=== PATIENT | male | born 1930 | race Caucasian/White ===

== ENCOUNTER 2016-04-18 12:52 | Inpatient (IN) ==
--- NOTE | 2016-04-18 13:11 | Emergency Department Note ---
Disposition Clinical Impression: Weakness, WEINSTEIN (dyspnea on exertion), REJI (acute kidney injury), Congestive heart failure, Frail elderly, COPD (chronic obstructive pulmonary disease), HLD (hyperlipidemia), HTN (hypertension), CAD (coronary artery disease), Hypokalemia , Atrial fibrillation Disposition: Admitted As Inpatient Referrals: Amari Alcantara DO [Primary Care Provider] - Forms: ED Satisfaction Letter General Adult HPI - General Chief complaint: ED Shortness of Breath/Dyspnea Stated complaint: PIPER Time Seen by Provider: 04/18/16 13:09 Source: patient, family Limitations: no limitations - History of Present Illness HPI Narrative: 85-year-old male with multiple medical problems including CHF COPD CAD and colon cancer reports the emergency department complaining of weakness. He describes dyspnea on exertion. He usually wears oxygen at home but only at night 2 L. The patient denies any coughing of blood leg swelling or pain or syncope. There has been no unilateral arm or leg weakness or numbness no history of headache neck stiffness rash or fever. No coughing in general. The patient describes nausea. He has chronic diarrhea status post colon surgery. No bloody stool. No vomiting. There is no history of abdominal pain. No trauma or falls. No confusion. The patient has been taking new diuretics, he reports significant weight loss since taking the diuretic medication. He saw his physician about 10 days ago he reports changes diuretic medication. He wonders if the medication changes have caused his symptomatology there is no history of rash. The patient states he had a corner and bypass about 2 years ago. He is not on blood thinning medication apart from aspirin. There is no history of acute bleeding. The patient's family member feels that he is lost too much weight and that he might be dehydrated. There is concern that the patient has been woozy when he walks and he might fall down. Onset (ago): day(s) Pain Scale: 0 - Related Data Home Medications Medication Instructions Recorded Confirmed Aspirin Enteric Coated [Aspirin EC] 81 mg PO DAILY 06/27/15 06/27/15 Atorvastatin Calcium [Lipitor] 20 mg PO DAILY 06/27/15 06/27/15 Furosemide [Lasix] 40 mg PO BID 06/27/15 06/27/15 Isosorbide MONOnitrate (24 HR) 30 mg PO DAILY 06/27/15 06/27/15 [Imdur] Levothyroxine [Synthroid] 50 mcg PO DAILY 06/27/15 06/27/15 Metoprolol XL (24 HR) Succ [Toprol 100 mg PO DAILY 06/27/15 06/27/15 XL] Mometasone/Formoterol [Dulera 200 2 puff IH BID 06/27/15 06/27/15 Mcg/5 Mcg Inhaler] Montelukast [Singulair] 10 mg PO DAILY 06/27/15 06/27/15 Ramipril [Altace] 5 mg PO DAILY 06/27/15 06/27/15 Ranolazine [Ranexa] 500 mg PO BID 06/27/15 06/27/15 Temazepam [Restoril] 30 mg PO HS 06/27/15 06/27/15 Venlafaxine HCl [Venlafaxine HCl 75 mg PO DAILY 06/27/15 06/27/15 ER] Previous Rx's Medication Instructions Recorded Albuterol Sulfate [Albuterol 1 puff IH Q4HR PRN #1 unit 03/06/16 Inhaler] PredniSONE 40 mg PO DAILY #10 tablet 03/06/16 Allergies Allergy/AdvReac Type Severity Reaction Status Date / Time rivaroxaban [From Xarelto] Allergy See Verified 04/18/16 13:02 Comments All systems ED: reviewed and negative except as stated. Past Medical History - Past Medical History Medical history: Reports: cancer, CHF, COPD, coronary artery disease, hyperlipidemia, hypertension, renal disease, valvular heart disease, other Psychiatric history: Reports: no psych history - Social History Smoking Status: Never smoker Smokeless Tobacco Status: No Alcohol use: Reports: none Drug use: Reports: none Physical Exam - General Limitations: no limitations General appearance: alert, in no apparent distress - Head Head exam: atraumatic, normocephalic, normal inspection - Eye Eye exam: Present: normal appearance, PERRL, EOMI - ENT ENT exam: normal exam, normal oropharynx, mucous membranes moist, TM's normal bilaterally, normal external ear exam - Neck Neck exam: Present: normal inspection, full ROM, trachea midline - Chest Chest inspection: Present: symmetric chest wall rise. Absent: tenderness - Respiratory Respiratory exam: Present: normal lung sounds bilaterally. Absent: respiratory distress - Cardiovascular Cardiovascular exam: Present: bradycardia, irregular rhythm - Abdominal Exam Abdominal exam: Present: soft, Non-Tender, normal bowel sounds. Absent: tenderness, distention, guarding, rebound, rigidity, pulsatile mass - Extremities Exam Extremities exam: Present: normal inspection, full ROM, normal capillary refill. Absent: tenderness, pedal edema, joint swelling, calf tenderness - Expanded Lower Extremity Exam Lower leg exam: Absent: Homans' sign Neurovascular/Tendon exam: Present: extremity cold to touch. Absent: motor deficit, sensory deficit, tendon deficit, pallor - Back Exam Back exam: Present: normal inspection, full ROM. Absent: tenderness, CVA tenderness (R), CVA tenderness (L), vertebral tenderness - Neurological Exam Neurological exam: Present: alert, oriented X3, CN II-XII intact. Absent: motor sensory deficit - Psychiatric Psychiatric exam: Present: normal affect, normal mood - Skin Skin exam: Present: warm, dry, intact, normal color. Absent: rash, cyanosis, diaphoresis, erythema, pallor, mottled Course Vital Signs Temperature 97.4 F L 04/18/16 13:02 Pulse Rate 88 04/18/16 13:02 Respiratory Rate 18 04/18/16 13:02 Blood Pressure 95/61 04/18/16 13:02 O2 Sat by Pulse Oximetry 100 04/18/16 13:02 Temperature 97.4 F L 04/18/16 13:02 Pulse Rate 61 04/18/16 15:30 Respiratory Rate 18 04/18/16 15:30 Blood Pressure 124/66 04/18/16 15:30 O2 Sat by Pulse Oximetry 98 04/18/16 15:30 Oxygen Delivery Oxygen Delivery Room Air Medical Decision Making - [place] Narrative Medical decision making narrative: Patient appears to have acute kidney injury based on a significantly elevated BUN and creatinine. He is elderly and has multiple comorbidities. He is having trouble walking and becoming dyspneic on exertion. The patient has not fallen, his relative reports that he urinates copious amounts every night and feels that the patient has lost too much weight he describes a 30 pound weight loss in one month. Given the patient has acute kidney injury, is symptomatic, and his multiple comorbidities, I thought it appropriate to admit the patient to the hospital. I discussed the case with the hospitalist on-call who has accepted the patient to their care. - Lab Data Lab results reviewed: Yes I reviewed the patient's lab results. Result diagrams: 04/18/16 13:45 04/18/16 13:51 Lab Results 04/18/16 04/18/16 04/18/16 Range/Units 13:45 13:45 13:45 WBC 11.2 H (4.3-11.1) K/mcL RBC 4.69 (4.19-5.50) M/mcL Hgb 14.2 (12.9-16.9) g/dL Hct 42.8 (37.5-50.1) % MCV 91.3 (83.0-100.0) fL MCH 30.3 (28.0-33.3) pg MCHC 33.2 (31.6-35.5) g/dL RDW 15.2 H (11.5-14.5) % Plt Count 275 (140-400) K/mcL MPV 9.4 (9.4-12.4) fL Immature Gran % 1.1 (0-4) % Seg Neutrophils % 67.1 % Lymphocytes % 18.9 % Monocytes % 10.9 % Eosinophils % 1.6 % Basophils % 0.4 % Neutrophils # 7.5 (1.6-8.9) K/mcL Lymphocytes # 2.1 (0.6-4.6) K/mcL Monocytes # 1.2 (0.0-1.3) K/mcL Eosinophils # 0.2 (0.0-0.6) K/mcL Basophils # 0.0 (0.0-0.2) K/mcL PT 11.7 (9.4-12.1) Seconds INR 1.1 APTT 32.6 (26.0-36.0) Seconds Sodium (136-145) mEq/L Potassium (3.5-4.5) mEq/L Chloride (98-109) mEq/L Carbon Dioxide (19-29) mEq/L BUN (8-26) mg/dL Creatinine (0.72-1.25) mg/dL Est GFR ( Amer) (> 60) Est GFR (Non-Af Amer) (> 60) BUN/Creatinine Ratio (6-26) Glucose (70-99) mg/dL Calculated Osmolality (280-300) Lactic Acid 1.2 (0.5-2.2) mmol/L Calcium (8.6-10.8) mg/dL Total Bilirubin (0.2-1.2) mg/dL Direct Bilirubin (0.0-0.5) mg/dL Indirect Bilirubin (0.0-1.2) mg/dL AST (5-34) Units/L ALT (0-55) Units/L Alkaline Phosphatase (38-126) Units/L Creatine Kinase (30-200) Units/L Troponin I (0-0.03) ng/mL C-Reactive Protein (Less than 5) mg/L B-Natriuretic Peptide (0-100) pg/mL Serum Total Protein (6.0-8.3) g/dL Albumin (3.5-5.0) g/dL Globulin (2.4-3.5) g/dL Albumin/Globulin Ratio (1.1-2.2) Urine Color (Yellow) Urine Clarity (Clear) Urine pH (5.0-8.0) pH Units Ur Specific L[place]elly[place] (1.010-1.025) Urine Protein (Neg-Trace) mg/dL Urine Glucose (UA) (Normal) mg/dL Urine Ketones (Negative) mg/dL Urine Blood (Negative) Urine Nitrite (Negative) Urine Bilirubin (Negative) Urine Urobilinogen (Normal) mg/dL Ur Leukocyte Esterase (Negative) Ur Culture Indicated? (NO) 04/18/16 04/18/16 04/18/16 Range/Units 13:45 13:45 13:45 WBC (4.3-11.1) K/mcL RBC (4.19-5.50) M/mcL Hgb (12.9-16.9) g/dL Hct (37.5-50.1) % MCV (83.0-100.0) fL MCH (28.0-33.3) pg MCHC (31.6-35.5) g/dL RDW (11.5-14.5) % Plt Count (140-400) K/mcL MPV (9.4-12.4) fL Immature Gran % (0-4) % Seg Neutrophils % % Lymphocytes % % Monocytes % % Eosinophils % % Basophils % % Neutrophils # (1.6-8.9) K/mcL Lymphocytes # (0.6-4.6) K/mcL Monocytes # (0.0-1.3) K/mcL Eosinophils # (0.0-0.6) K/mcL Basophils # (0.0-0.2) K/mcL PT (9.4-12.1) Seconds INR APTT (26.0-36.0) Seconds Sodium (136-145) mEq/L Potassium (3.5-4.5) mEq/L Chloride (98-109) mEq/L Carbon Dioxide (19-29) mEq/L BUN (8-26) mg/dL Creatinine (0.72-1.25) mg/dL Est GFR ( Amer) (> 60) Est GFR (Non-Af Amer) (> 60) BUN/Creatinine Ratio (6-26) Glucose (70-99) mg/dL Calculated Osmolality (280-300) Lactic Acid (0.5-2.2) mmol/L Calcium (8.6-10.8) mg/dL Total Bilirubin (0.2-1.2) mg/dL Direct Bilirubin (0.0-0.5) mg/dL Indirect Bilirubin (0.0-1.2) mg/dL AST (5-34) Units/L ALT (0-55) Units/L Alkaline Phosphatase (38-126) Units/L Creatine Kinase (30-200) Units/L Troponin I 0.03 (0-0.03) ng/mL C-Reactive Protein 6 H (Less than 5) mg/L B-Natriuretic Peptide 675 H (0-100) pg/mL Serum Total Protein (6.0-8.3) g/dL Albumin (3.5-5.0) g/dL Globulin (2.4-3.5) g/dL Albumin/Globulin Ratio (1.1-2.2) Urine Color (Yellow) Urine Clarity (Clear) Urine pH (5.0-8.0) pH Units Ur Specific Llewellyn (1.010-1.025) Urine Protein (Neg-Trace) mg/dL Urine Glucose (UA) (Normal) mg/dL Urine Ketones (Negative) mg/dL Urine Blood (Negative) Urine Nitrite (Negative) Urine Bilirubin (Negative) Urine Urobilinogen (Normal) mg/dL Ur Leukocyte Esterase (Negative) Ur Culture Indicated? (NO) 04/18/16 04/18/16 Range/Units 13:51 14:58 WBC (4.3-11.1) K/mcL RBC (4.19-5.50) M/mcL Hgb (12.9-16.9) g/dL Hct (37.5-50.1) % MCV (83.0-100.0) fL MCH (28.0-33.3) pg MCHC (31.6-35.5) g/dL RDW (11.5-14.5) % Plt Count (140-400) K/mcL MPV (9.4-12.4) fL Immature Gran % (0-4) % Seg Neutrophils % % Lymphocytes % % Monocytes % % Eosinophils % % Basophils % % Neutrophils # (1.6-8.9) K/mcL Lymphocytes # (0.6-4.6) K/mcL Monocytes # (0.0-1.3) K/mcL Eosinophils # (0.0-0.6) K/mcL Basophils # (0.0-0.2) K/mcL PT (9.4-12.1) Seconds INR APTT (26.0-36.0) Seconds Sodium 129 L (136-145) mEq/L Potassium 3.3 L (3.5-4.5) mEq/L Chloride 89 L (98-109) mEq/L Carbon Dioxide 31 H (19-29) mEq/L BUN 92 H (8-26) mg/dL Creatinine 2.93 H (0.72-1.25) mg/dL Est GFR ( Amer) 25 L (> 60) Est GFR (Non-Af Amer) 21 L (> 60) BUN/Creatinine Ratio 31 H (6-26) Glucose 115 H (70-99) mg/dL Calculated Osmolality 297 (280-300) Lactic Acid (0.5-2.2) mmol/L Calcium 9.3 (8.6-10.8) mg/dL Total Bilirubin 1.2 (0.2-1.2) mg/dL Direct Bilirubin 0.6 H (0.0-0.5) mg/dL Indirect Bilirubin 0.6 (0.0-1.2) mg/dL AST 27 (5-34) Units/L ALT 24 (0-55) Units/L Alkaline Phosphatase 100 (38-126) Units/L Creatine Kinase 26 L (30-200) Units/L Troponin I (0-0.03) ng/mL C-Reactive Protein (Less than 5) mg/L B-Natriuretic Peptide (0-100) pg/mL Serum Total Protein 7.7 (6.0-8.3) g/dL Albumin 3.6 (3.5-5.0) g/dL Globulin 4.1 H (2.4-3.5) g/dL Albumin/Globulin Ratio 0.9 L (1.1-2.2) Urine Color Yellow (Yellow) Urine Clarity Clear (Clear) Urine pH 6.0 (5.0-8.0) pH Units Ur Specific Llewellyn 1.013 (1.010-1.025) Urine Protein Negative (Neg-Trace) mg/dL Urine Glucose (UA) Normal (Normal) mg/dL Urine Ketones Negative (Negative) mg/dL Urine Blood Negative (Negative) Urine Nitrite Negative (Negative) Urine Bilirubin Negative (Negative) Urine Urobilinogen Normal (Normal) mg/dL Ur Leukocyte Esterase Negative (Negative) Ur Culture Indicated? NO (NO) - Radiology Data Radiology results reviewed: Yes I reviewed the patient's radiology results.
[2016-04-18 13:56] LABS: Basophils % 0.4 %; Eosinophils # 0.2 K/mcL (0.0-0.6); Eosinophils % 1.6 %; Hematocrit 42.8 % (37.5-50.1); Hemoglobin 14.2 g/dL (12.9-16.9); Immature Granulocytes % 1.1 % (0-4); Lymphocytes # 2.1 K/mcL (0.6-4.6); Lymphocytes % 18.9 %; Mean Corpuscular HGB Conc 33.2 g/dL (31.6-35.5); Mean Corpuscular Hemoglobin 30.3 pg (28.0-33.3); Mean Corpuscular Volume 91.3 fL (83.0-100.0); Mean Platelet Volume 9.4 fL (9.4-12.4); Monocytes # 1.2 K/mcL (0.0-1.3); Monocytes % 10.9 %; Neutrophils # 7.5 K/mcL (1.6-8.9); Platelet Count 275 K/mcL (140-400); Red Blood Count 4.69 M/mcL (4.19-5.50); Red Cell Distribution Width 15.2 % (11.5-14.5); Segmented Neutrophils % 67.1 %
[2016-04-18 14:00] LABS: INR 1.1; Prothrombin Time 11.7 Seconds (9.4-12.1)
[2016-04-18 14:03] LABS: Activated Partial Thrombo Time 32.6 Seconds (26.0-36.0)
[2016-04-18 14:18] LABS: Albumin 3.6 g/dL (3.5-5.0); Albumin/Globulin Ratio 0.9 (1.1-2.2); Bilirubin,Direct 0.6 mg/dL (0.0-0.5); Bilirubin,Indirect 0.6 mg/dL (0.0-1.2); Bilirubin,Total 1.2 mg/dL (0.2-1.2); Calcium 9.3 mg/dL (8.6-10.8); Globulin 4.1 g/dL (2.4-3.5); Potassium 3.3 mEq/L (3.5-4.5); Total Protein 7.7 g/dL (6.0-8.3)
[2016-04-18 15:08] LABS: Bilirubin,Urine Negative (Negative); Blood,Urine Negative (Negative); Clarity,Urine Clear (Clear); Color,Urine Yellow (Yellow); Glucose,Urine (UA) Normal (Normal); Ketones,Urine Negative (Negative); Leukocyte Esterase,Urine Negative (Negative); Nitrite,Urine Negative (Negative); Protein,Urine Negative (Neg-Trace); Specific Gravity,Urine 1.013 (1.010-1.025); Urobilinogen,Urine Normal (Normal)
[2016-04-18] MEDS ORDERED: Acetaminophen 325 MG TABLET PO PRN (18:49)
[2016-04-18] MEDS ORDERED: Ondansetron 4 MG/2 ML VIAL IVP PRN (18:49)
[2016-04-18] MEDS ORDERED: Naloxone 0.4 MG/ML INJ IVP PRN (18:49)
[2016-04-18] MEDS ORDERED: 0.9 % Sodium Chloride 500 ML IVC SCH (20:00)
--- NOTE | 2016-04-18 20:04 | Internal Med History&Physical ---
Date of Encounter: 04/18/16 Time of Encounter: 07:00 Assessment and Plan (1) [id number] renal failure Current visit: Yes Status: Acute 1 patient has been receiving multiple diuretics he has had approximately 30 pound weight loss in a month. He does have history of chronic kidney disease appears his baseline creatinines around 1.4. Present creatinine is 2.93 we will hold diuretics for now 2 we will give gentle hydration overnight 3 we will recheck creatinine in a.m. 4 diuretics will be reviewed per day team and resume based on patient's fluid electrolyte and hemodynamic status 5 we will avoid nephrotoxins 6 the patient follow up with nephrology and consult as needed (2) CAD (coronary artery disease) Current visit: Yes Status: Acute 1 she has past history of CAD with CABG partly 14 years ago. Echo in 2016 revealed EF of 6065% with severe pulmonic regurgitation severely dilated right atrium and mild pulmonary hypertension severely dilated right ventricle. We will continue with metoprolol Isorbide Ranexa statin and aspirin 2 continuous cardiac monitoring Qualifiers: Coronary Disease-Associated Artery/Lesion type: [place] artery [place] vs. transplanted heart: [place] heart Associated angina: without angina Qualified Code(s): I25.10 - Atherosclerotic heart disease of [place] coronary artery without angina pectoris (3) COPD (chronic obstructive pulmonary disease) Current visit: Yes Status: Acute 1 patient has chronic COPD presently not not in exacerbation. We will continue with oxygen as needed and maintain SPO2 greater than 92% area will continue bronchodilators. We will continue with Singulair Qualifiers: COPD type: unspecified COPD Qualified Code(s): J44.9 - Chronic obstructive pulmonary disease, unspecified (4) Congestive heart failure Current visit: Yes Status: Acute 1 patient's past history of CHF echo in 2016 demonstrated EF is 6065% with severe pulmonic regurgitation severely dilated right atrium and mild pulmonary hypertension severely dilated right ventricle. He has been on several diuretics with multiple changes over the past month he has lost proximally 30 pounds in one month. We will hold diuretics for now we will give some gentle hydration overnight and resume diuretics after reassessing patient's volume and hemodynamic status. 2 monitor intake and output 3 daily weights 4 low sodium diet Qualifiers: Congestive heart failure type: diastolic Congestive heart failure chronicity: chronic Qualified Code(s): I50.32 - Chronic diastolic (congestive ) heart failure (5) HTN (hypertension) Current visit: Yes Status: Acute 1 patient has been receiving multiple diuretics will hold for now we will hold Altace and continue metoprolol with parameters. We will resume medication once patient is back to baseline Qualifiers: Hypertension type: essential hypertension Qualified Code(s): I10 - Essential (primary) hypertension (6) Hypokalemia Current visit: Yes Status: Acute 1 his potassium was 3.3 we will replace and recheck (7) Weakness Current visit: Yes Status: Acute 1 patient has been experiencing weakness I suspect related to dehydration. We will continue with IV fluids. 2 we will consult PT and OT (8) Chronic a-fib Current visit: Yes Status: Acute 1 present rate controlled we will continue with metoprolol as well as aspirin Internal Medicine - H&P: HPI Chief complaint: Weakness Admitted From: Emergency Dept Plans for Post Hospital Care: Home History of present illness: Mr. Ames is a 85 year old male past medical history of COPD CAD with CABG afib colon cancer. According the patient approximately one week ago his legs were swollen he was placed on metolazone for 5 days. He took the metolazone and his swelling has resolved within 4 days. This week the patient has been experiencing increased weakness having difficulty ambulating some shortness of breath on exertion expressing some nausea and diarrhea. He does have some lightheadedness with positional changes. He did experience a fall approximately 2 weeks ago . 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 He sees nephrology for CK D he is spiralactone, he was taken off the spiralactone and placed Amilonida. This all occured since March. Since March he lost 30 pounds. He presented to the ER with the complaints above. According to ER records patient's lab work did reveal a CK D Creatinine Was 2.93 BUN Was 92, BNP 675 rest of lab work was unremarkable vital signs he did have some hypertension with systolic in the 90s head CT was obtained and it was negative. He was admitted for further work up and evaluation. Presently patient does not appear to be any respiratory distress he denies any chest pain or shortness of breath. Upon assessment his lung sounds are clear heart rate is irregular. He is hemodynamically stable at this time I reviewed this case with Dr. Roman who agrees with plan Past Med Surg Social Fam HX - Past Medical History Medical history: atrial fibrillation, cancer, CHF, COPD, coronary artery disease , hyperlipidemia, hypertension, renal disease, valvular heart disease, other Psychiatric history: no psych history - Past Surgical History Surgical History: coronary bypass (CABG) - Social History Smoking Status: Never smoker Smokeless Tobacco Status: No Alcohol use: none Drug use: none - Family History Mother Living Status: Hx Family Cardiac Disorders: Yes (HTN) Hx Family Cancer: Yes Hx Family Neurologic Disorders: Yes (cerebral hemorrhage) Internal Medicine - H&P: Meds Aspirin Enteric Coated [Aspirin EC] 81 mg PO DAILY 06/27/15 [History] Atorvastatin Calcium [Lipitor] 20 mg PO HS 06/27/15 [History] Furosemide [Lasix] 80 mg PO BID 06/27/15 [History] Isosorbide MONOnitrate (24 HR) [Imdur] 30 mg PO DAILY 06/27/15 [History] Levothyroxine [Synthroid] 50 mcg PO DAILY 06/27/15 [History] Montelukast [Singulair] 10 mg PO DAILY 06/27/15 [History] Ramipril [Altace] 5 mg PO DAILY 06/27/15 [History] Ranolazine [Ranexa] 500 mg PO BID 06/27/15 [History] Temazepam [Restoril] 30 mg PO HS 06/27/15 [History] Venlafaxine HCl [Venlafaxine HCl ER] 75 mg PO DAILY 06/27/15 [History] Amiloride [Midamor] 5 mg PO DAILY 04/18/16 [History] Calcitriol [Rocaltrol] 0.25 mcg PO DAILY 04/18/16 [History] Metoprolol Succinate 100 mg PO DAILY 04/18/16 [History] Oxygen 2 l NS HS 04/18/16 [History] Potassium Chloride [Klor-Con 10] 10 meq PO DAILY 04/18/16 [History] Allergies rivaroxaban [From Xarelto] Allergy (Verified 04/18/16 13:02) See Comments GI bleed All Systems PM: A 10-system review of systems was performed and is negative for pertinent findings except as documented above in the HPI. - Constitutional Constitutional: falls, weakness, weight loss - Cardiovascular Cardiovascular ROS IM: dyspnea on exertion, edema - Respiratory Respiratory: dyspnea on exertion, no cough, no dyspnea, no wheezing, no excessive phlegm production - Gastrointestinal Gastrointestinal: no abdominal pain, no diarrhea, no hematemesis, no hematochezia, no melena, no nausea, no vomiting - Musculoskeletal Musculoskeletal ROS IM: no numbness, no tingling - Neurological Neurological ROS: no confusion, no convulsions, no focal weakness, no numbness, no tingling, no tremor(s) - Constitutional Vitals: Temp Pulse Resp BP Pulse Ox 98.4 F 67 16 105/62 95 04/18/16 19:40 04/18/16 19:40 04/18/16 19:40 04/18/16 19:40 04/18/16 19:40 General appearance: Present: A&O X 3, answers questions appropriately - Head Head exam: Present: atraumatic, normocephalic - Eye Eye exam: Present: PERRL, conjuntiva pink, sclera anicteric Pupils: Present: PERRL - Neck Neck exam general surgery: Present: supple, trachea midline. Absent: lymphadenopathy - Respiratory Respiratory exam: Present: CTAB. Absent: accessory muscle use, rales, rhonchi, wheezes - Cardiovascular Cardiovascular exam: Present: RRR, +S1, +S2, systolic murmur. Absent: diastolic murmur, gallop, rubs - Expanded Cardiovascular Exam Type of murmur: Present: systolic Intensity: 3/6 - GI/Abdominal GI/Abdominal exam: Present: normal bowel sounds, soft, no peritoneal signs. Absent: distended, tenderness - Extremities Exam Extremities exam: Present: warm, radial pulses palpable and symetrical. Absent : calf tenderness, cyanotic, pedal edema - Neurological Exam Neurological exam: Present: CN II-XII intact, oriented X3, no focal deficits. Absent: pronater drift, facial droop, speech deficit - Skin Skin exam: Present: dry, intact Internal Med - H&P Results - Labs CBC & Chem 7: 04/18/16 13:45 04/18/16 13:51 - EKG Data Prior EKG available for review: yes When compared to previous EKG: there is no significant change EKG comments: 04/18/16 21:05 Atrial fibrillation - Diagnostic Studies Chest x-ray Additional comments: Chest X-Ray 04/18/16 13:12 IMPRESSION: No acute cardiac or pulmonary disease. D/ / Robin Chen MD / Robin Chen MD Interpreting Provider: Robin Chen MD Head CT 04/18/16 13:36 IMPRESSION: No hemorrhage or mass identified Underlying atrophy with periventricular and scattered frontal parietal white matter disease, likely due to small-vessel ischemic change. Appearance is similar D/ / Ilir Ward MD / Ilir Ward MD Interpreting Provider: Ilir Ward MD
[2016-04-18] MEDS: Ranolazine 500 MG TAB.ER.12H PO SCH (20:11)
[2016-04-18] MEDS: Temazepam 15 MG CAPSULE PO SCH (20:11)
[2016-04-18] MEDS ORDERED: 0.9 % Sodium Chloride 1,000 ML IVC SCH (20:26)
--- NOTE | 2016-04-19 01:18 | Event Note ---
Date of Encounter: 04/19/16 Time of Encounter: 01:15 [place] seen and examimed. Patient presented with weakness, lethargy, lightheadedness and notable weight loss in the past month. Patient diuretics has been increased and now takes metolazone and amiloride in addition to lasix. Patiet dehydrated with REJI due to overdiuresis. Still makes urine. Will give a total of 1 L of urine 50 ml/h. Monitor urine output. Hold all diuretics and BP lowering medicines.
[2016-04-19] MEDS: Fluticasone Propionate Nasal 50 MCG/SPRAY BOTTLE NS SCH ×2 (01:24→08:36)
--- NOTE | 2016-04-19 01:24 | Event Note ---
Date of Encounter: 04/19/16 Time of Encounter: 00:53
[2016-04-19 04:17] LABS: Basophils % 0.4 %; Eosinophils # 0.3 K/mcL (0.0-0.6); Eosinophils % 2.4 %; Hematocrit 37.6 % (37.5-50.1); Hemoglobin 12.7 g/dL (12.9-16.9); Lymphocytes # 2.9 K/mcL (0.6-4.6); Lymphocytes % 27.2 %; Mean Corpuscular HGB Conc 33.8 g/dL (31.6-35.5); Mean Corpuscular Volume 91.7 fL (83.0-100.0); Mean Platelet Volume 9.7 fL (9.4-12.4); Monocytes # 1.5 K/mcL (0.0-1.3); Monocytes % 14.1 %; Neutrophils # 5.8 K/mcL (1.6-8.9); Platelet Count 229 K/mcL (140-400); Red Cell Distribution Width 15.2 % (11.5-14.5); Segmented Neutrophils % 54.9 %
[2016-04-19 04:32] LABS: Calcium 8.3 mg/dL (8.6-10.8); Potassium 3.8 mEq/L (3.5-4.5)
[2016-04-19 04:33] LABS: Magnesium 2.3 mg/dL (1.6-2.6)
[2016-04-19] MEDS: Aspirin Enteric Coated 81 MG Tablet PO SCH (08:28)
[2016-04-19] MEDS: Isosorbide MONOnitrate (24 HR) 30 MG TAB.ER.24H PO SCH (08:28)
[2016-04-19] MEDS: Venlafaxine XR (24 HR) 75 MG CAP.ER.24H PO SCH (08:28)
[2016-04-19] MEDS: Ranolazine 500 MG TAB.ER.12H PO SCH ×2 (08:28→21:44)
[2016-04-19] MEDS: Metoprolol XL (24 HR) Succ 50 MG TAB.ER.24H PO SCH (08:29)
[2016-04-19] MEDS ORDERED: Lisinopril 20 MG TABLET PO SCH (09:00)
[2016-04-19] MEDS ORDERED: Metoprolol XL (24 HR) Succ 50 MG TAB.ER.24H PO SCH (09:00)
--- NOTE | 2016-04-19 15:11 | Electrocardiograph Report ---
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
--- NOTE | 2016-04-19 17:46 | Internal Med Progress Note ---
Date of Encounter: 04/19/16 Time of Encounter: 16:45 - Assessment and plan (1) Uqnay-vj-nyvcfnc renal failure Current Visit: Yes Status: Chronic Assessment and plan: Creat 2.46 today, down from 2.93 yesterday. Pt has lost about 30# this month and has been on multiple diuretics. Continue gentle hydration at 50ml/hr 0.9N REcheck labs in the a.m. Avoid nephrotoxins and NSAIDs Reevaluate diuretics tomorrow. (2) CAD (coronary artery disease) Current Visit: No Status: Chronic Assessment and plan: CABG 14 years ago. Echo in 2016 LVEF 60-65% with pulmonic regurg, severely dilated R atrium and mild pulmonary hypertension and severely dilated RV. Continue home medications Metoprolol Ranexa ASA Continue telemetry Qualifiers: Coronary Disease-Associated Artery/Lesion type: [place] artery [place] vs. transplanted heart: [place] heart Associated angina: without angina Qualified Code(s): I25.10 - Atherosclerotic heart disease of [place] coronary artery without angina pectoris (3) COPD (chronic obstructive pulmonary disease) Current Visit: Yes Status: Acute Assessment and plan: Well controlled at this time. Will continue 02 prn and nebulizers prn, Singulair scheduled. Lungs are clear in all ant and post brandt. Qualifiers: COPD type: unspecified COPD Qualified Code(s): J44.9 - Chronic obstructive pulmonary disease, unspecified (4) Atrial fibrillation Current Visit: No Status: Chronic Assessment and plan: Chronic. NSR this time. Qualifiers: Atrial fibrillation type: chronic Qualified Code(s): I48.2 - Chronic atrial fibrillation (5) Congestive heart failure Current Visit: Yes Status: Acute Assessment and plan: See echo results above. He has had multiple diuretic changes in the last month and significant weight loss. Will reevaluate them tomorrow, continue gentle hydration. Pt lungs are clear and he has no peripheral edema at this time. Qualifiers: Congestive heart failure type: diastolic Congestive heart failure chronicity: chronic Qualified Code(s): I50.32 - Chronic diastolic (congestive ) heart failure (6) HTN (hypertension) Current Visit: Yes Status: Acute Assessment and plan: Continue home medications, without diuretics. Continue to monitor VS. Pt has been normotensive this visit. Qualifiers: Hypertension type: essential hypertension Qualified Code(s): I10 - Essential (primary) hypertension (7) Hypokalemia Current Visit: Yes Status: Resolved Assessment and plan: Resolved. 3.8. Will continue to monitor. (8) Weakness Current Visit: Yes Status: Acute - Subjective Interval history: PT resting quietly on bed, male visitor at , pt denies pain or concerns. STates that he is waiting on Dr. Guevara to come up with something for him so he will have a place to go. He denies GARZA, dizziness, SOB, pain, Chest pain, n/v/d. - Constitutional Vitals: Temp Pulse Resp BP Pulse Ox 97.7 F 84 15 153/91 91 L 04/19/16 14:40 04/19/16 14:40 04/19/16 14:40 04/19/16 14:40 04/19/16 14:40 General appearance: Present: cooperative, A&O X 3, pleasant, answers questions appropriately - Head Head exam: Present: normal inspection - Eye Eye exam: Present: normal appearance, conjuntiva pink - ENT ENT exam: Present: mucous membranes moist, normal exam, normal external ear exam - Neck Neck exam general surgery: Present: normal inspection. Absent: lymphadenopathy , tenderness - Respiratory Respiratory exam: Present: CTAB. Absent: chest wall tenderness, decreased breath sounds, respiratory distress, rhonchi, stridor, wheezes - Cardiovascular Cardiovascular exam: Present: diastolic murmur, RRR. Absent: JVD - Expanded Cardiovascular Exam Type of murmur: Present: systolic Location: Present: LUSB Intensity: 3/6 - Extremities Exam Extremities exam: Present: normal capillary refill, normal inspection, warm, radial pulses palpable and symetrical. Absent: calf tenderness, cyanotic, joint swelling, pedal edema, tenderness - Neurological Exam Neurological exam: Present: alert, oriented X3. Absent: facial droop, speech deficit Internal Medicine: Result - Labs CBC & Chem 7: 04/19/16 03:59 04/19/16 03:59 Labs: Short CBC 04/19/16 Range/Units 03:59 WBC 10.5 (4.3-11.1) K/mcL Hgb 12.7 L D (12.9-16.9) g/dL Hct 37.6 (37.5-50.1) % Plt Count 229 (140-400) K/mcL Neutrophils # 5.8 (1.6-8.9) K/mcL BMP 04/19/16 03:59 Sodium 132 L Potassium 3.8 Chloride 97 L Carbon Dioxide 22 BUN 86 H Creatinine 2.46 H Glucose 96 Calcium 8.3 L - ABG Interpretation ABG results: PT/INR, D-dimer PT 11.7 Seconds (9.4-12.1) 04/18/16 13:45 - VTE Documentation of Mechanical Device: Graduated compression elastic hosiery Consult Discharge Plan - Plan Referrals: Edson Daniels MD [Partnered Physician] - 04/21/16 1:45 pm Amari Alcantara DO [Primary Care Provider] -
[2016-04-19] MEDS ORDERED: 0.9 % Sodium Chloride 1,000 ML IVC SCH (18:00)
[2016-04-19] MEDS: Temazepam 15 MG CAPSULE PO SCH (21:44)
[2016-04-20 06:00] LABS: Basophils % 0.5 %; Eosinophils # 0.3 K/mcL (0.0-0.6); Eosinophils % 3.9 %; Hematocrit 35.2 % (37.5-50.1); Hemoglobin 11.7 g/dL (12.9-16.9); Immature Granulocytes % 1.3 % (0-4); Lymphocytes # 2.3 K/mcL (0.6-4.6); Lymphocytes % 25.8 %; Mean Corpuscular HGB Conc 33.2 g/dL (31.6-35.5); Mean Corpuscular Volume 93.4 fL (83.0-100.0); Mean Platelet Volume 9.8 fL (9.4-12.4); Monocytes # 1.3 K/mcL (0.0-1.3); Monocytes % 14.9 %; Neutrophils # 4.7 K/mcL (1.6-8.9); Platelet Count 220 K/mcL (140-400); Red Blood Count 3.77 M/mcL (4.19-5.50); Red Cell Distribution Width 15.2 % (11.5-14.5); Segmented Neutrophils % 53.6 %
[2016-04-20 06:17] LABS: Potassium 3.4 mEq/L (3.5-4.5)
[2016-04-20] MEDS: Isosorbide MONOnitrate (24 HR) 30 MG TAB.ER.24H PO SCH (08:06)
[2016-04-20] MEDS: Metoprolol XL (24 HR) Succ 50 MG TAB.ER.24H PO SCH (08:07)
[2016-04-20] MEDS: Venlafaxine XR (24 HR) 75 MG CAP.ER.24H PO SCH (08:07)
[2016-04-20] MEDS: Aspirin Enteric Coated 81 MG Tablet PO SCH (08:07)
[2016-04-20] MEDS: Ranolazine 500 MG TAB.ER.12H PO SCH (08:07)
[2016-04-20] MEDS: Fluticasone Propionate Nasal 50 MCG/SPRAY BOTTLE NS SCH (08:08)
--- NOTE | 2016-04-20 15:01 | Discharge Summary ---
Date of Encounter: 04/20/16 Time of Encounter: 14:30 - Discharge Diagnosis (1) Arckr-vv-kdiwmlk renal failure Priority: Primary Status: Chronic Comments: Pt has been taking multiple diuretics and has had large amount of urine output, weakness, unsteadiness, and weight loss. Creatinine 1.61 today, which is back at baseline after gentle hydration. Pt should continue to avoid NSAIDs and nephrotoxins at home and follow up with his fuel buyer as scheduled. Blood pressure and pulse rate have been within normal limits, last BP 111/61. Pt is aware that he needs to follow up with Dr. Alcantara, as well. (2) Chronic renal disease, stage 4, severely decreased glomerular filtration rate (GFR) between 15-29 mL/min/1.73 square meter Priority: Secondary Status: Chronic Comments: Chronic, plan same as above. (3) CAD (coronary artery disease) Priority: Secondary Status: Chronic Comments: Pt has past history of CAD and CABG. LEVF 60=65 % from echo in 2015 and pulmonic regurgitation, severly dilated R atrium and mild pulmonary htn and severly dilated R ventricle. Will continue home medications. Qualifiers: Coronary Disease-Associated Artery/Lesion type: [place] artery [place] vs. transplanted heart: [place] heart Associated angina: without angina Qualified Code(s): I25.10 - Atherosclerotic heart disease of [place] coronary artery without angina pectoris (4) COPD (chronic obstructive pulmonary disease) Priority: Secondary Status: Chronic Comments: Chronic, COPD without exacerbation. Lungs are clear ant and post. Well controlled with present regimen, will continue at home. Qualifiers: COPD type: unspecified COPD Qualified Code(s): J44.9 - Chronic obstructive pulmonary disease, unspecified (5) Atrial fibrillation Priority: Secondary Status: Chronic Comments: Chronic, rate controlled. Will continue with ASA and beta lisset, metoprolol Qualifiers: Atrial fibrillation type: chronic Qualified Code(s): I48.2 - Chronic atrial fibrillation (6) Congestive heart failure Priority: Secondary Status: Chronic Comments: EF 60-65% from echo in 2016, severe pulmonic regurgitation, severly dilated R atrium and mild pulmonary htn, severly dilated R ventricle. Pt has been on multiple diuretics in the last month and has lost 30 pounds due to nearly constant urine output per family. Pt's pressure has been normotensive, sometimes hypotensive, and his renal function has returned to his baseline. He was weak and sometimes unsteady on his feet, perhaps due to hypotension and dehydration from diuretics. Will start on low dose of Lasix for home. Pt will follow up with PCP and fuel buyer prn. Qualifiers: Congestive heart failure type: diastolic Congestive heart failure chronicity: chronic Qualified Code(s): I50.32 - Chronic diastolic (congestive ) heart failure (7) HTN (hypertension) Priority: Secondary Status: Chronic Comments: Plan as above. Will continue home medications and start lasix in a small dose. Qualifiers: Hypertension type: essential hypertension Qualified Code(s): I10 - Essential (primary) hypertension (8) Hypokalemia Priority: Secondary Status: Chronic Comments: Resolved, 3.8 yesterday, 3.4 today. Will give K supplement prior to discharge. (9) Weakness Priority: Secondary Status: Acute Comments: Pt states that he feels better today. Pt has been up amb around room without difficulty. Pt states that he is ready to go home. Will continue home medications and start small dose of lasix. Pt has been normotensive and renal labs have returned to baseline. Will encourage pt to use walker at home and in community. - Discharge Medications Prescriptions: Furosemide [Lasix] 40 mg PO BID #28 tablet Home Medications: Aspirin Enteric Coated [Aspirin EC] 81 mg PO DAILY 06/27/15 [History] Atorvastatin Calcium [Lipitor] 20 mg PO HS 06/27/15 [History] Isosorbide MONOnitrate (24 HR) [Imdur] 30 mg PO DAILY 06/27/15 [History] Levothyroxine [Synthroid] 50 mcg PO DAILY 06/27/15 [History] Montelukast [Singulair] 10 mg PO DAILY 06/27/15 [History] Ramipril [Altace] 5 mg PO DAILY 06/27/15 [History] Ranolazine [Ranexa] 500 mg PO BID 06/27/15 [History] Temazepam [Restoril] 30 mg PO HS 06/27/15 [History] Venlafaxine HCl [Venlafaxine HCl ER] 75 mg PO DAILY 06/27/15 [History] Amiloride [Midamor] 5 mg PO DAILY 04/18/16 [History] Calcitriol [Rocaltrol] 0.25 mcg PO DAILY 04/18/16 [History] Oxygen 2 l NS HS 04/18/16 [History] Potassium Chloride [Klor-Con 10] 10 meq PO DAILY 04/18/16 [History] Fluticasone Propionate Nasal [Flonase] 100 mcg NS DAILY bottle 04/20/16 [Rx] Furosemide [Lasix] 40 mg PO BID #28 tablet 04/20/16 [Rx] Metoprolol XL (24 HR) Succ [Toprol Xl] 100 mg PO DAILY tab.er.24h 04/20/16 [Rx] Allergies/Adverse Reactions: Allergies rivaroxaban [From Xarelto] Allergy (Verified 04/18/16 13:02) See Comments GI bleed Date of admission: 04/19/16 17:58 Primary care physician: Amari Alcantara Discharging clinician: Jaleesa Coley Anticipated date of discharge: 04/20/16 - Patient Status Disposition: Home, Self-Care Condition: Good Functional capacity at discharge: independent ambulation Overall status at discharge: patient is back to baseline - Discharge Instructions Follow Up With: Edson Daniels MD [Partnered Physician] - 04/21/16 1:45 pm Amari Alcantara DO [Primary Care Provider] - Additional Instructions: Please call Dr. Alcantara office tomorrow for follow up appointment Please follow up with your fuel buyer as scheduled. Please change positions slowly at home and use caution when walking Return to ER or your family doctor for any problems or concerns and for a reevaluation. - Diet and Activity Activity: ambulate only with your walker, resume usual activities as tolerated, wear oxygen at night Diet: other Hospital course: Mr. Ames is a 85 year old male with history of a-fib, CHF, COPD, HTN, CAD, colon cancer, and CKD Stage IV. Pt presented to the ED on 04/17 for 30lb weight loss, weakness, and [place]. Pt wears home 02, 2L at night. STates that he has been very weak and has been urinating much more than normal and has had changes in his diuretic over the last month. He denies chest pain, abd pain, n/v/d, fevers , cough, peripheral edema. He has been up walking in room and states that he feels better today. Pt had echo in 2016 that showed EF of 60-65% with severly dilated R atrium and L ventricle and severe pulmonic regurgitation. Chest xray on admission showed no acute cardiac or pulmonary disease, mild cardiomegaly and mildly tortuous aorta, no airspace disease. Creatinine has returned to baseline today. Will send pt home on Lasix 40mg bid for 2 weeks. Pt will need to follow up with primary care for evaluation and refills for hospital follow up. Also pt has been hypokalemic while admitted, corrected. Pt takes potassium supplementation at home, will continue. Pt will be given one dose here prior to discharge. - Time Spent with Patient Total time spent providing and/or coordinating discharge services: Less than 30 minutes - Constitutional Vitals: Temp Pulse Resp BP Pulse Ox 97.9 F 70 16 146/66 94 L 04/20/16 11:23 04/20/16 11:23 04/20/16 11:23 04/20/16 11:23 04/20/16 11:23 General appearance: Present: cooperative, A&O X 3, pleasant, no acute distress, answers questions appropriately - Head Head exam: Present: atraumatic, normal inspection - Eye Eye exam: Present: normal appearance, conjuntiva pink - ENT ENT exam: Present: mucous membranes moist, normal exam, normal external ear exam - Neck Neck exam general surgery: Present: normal inspection. Absent: lymphadenopathy , tenderness - Respiratory Respiratory exam: Present: CTAB. Absent: chest wall tenderness, decreased breath sounds, rales, respiratory distress, rhonchi, stridor, wheezes, tachypnea - Cardiovascular Cardiovascular exam: Present: RRR - Expanded Cardiovascular Exam Type of murmur: Present: diastolic Location: Present: LUSB Intensity: 3/6 Peripheral pulses: 1+: Radial (L), Radial (R), Dorsalis Pedis (L) PM, Dorsalis Pedis (R) PM - GI/Abdominal GI/Abdominal exam: Present: normal bowel sounds, soft. Absent: hepatomegaly, mass, tenderness - Extremities Exam Extremities exam: Present: full ROM, normal capillary refill, normal inspection , warm, radial pulses palpable and symetrical. Absent: joint swelling, mottling , pedal edema, tenderness - Neurological Exam Neurological exam: Present: alert, oriented X3, no focal deficits - VTE Documentation of Mechanical Device: Graduated compression elastic hosiery
[2016-04-20 15:04] VITALS: BP 111/61
== END 2016-04-20 16:40 | disposition home or self-care (01) | DRG 683 ==
LOC: 3BNU 12:52 → EMEROO 12:52 → 3BNU 17:18
PROVIDERS: ADMIT Registered Nurse; ATTEND Internal Medicine Endocrinology, Diabetes & Metabolism

== ENCOUNTER 2016-12-28 23:22 | Inpatient (IN) ==
[2016-12-29] MEDS ORDERED: Acetaminophen 325 MG TABLET PO ONE (00:25)
--- NOTE | 2016-12-29 00:27 | Emergency Department Note ---
Disposition Clinical Impression: HCAP (healthcare-associated pneumonia), Weakness Acute exacerbation of CHF (congestive heart failure) Qualifiers: Congestive heart failure type: unspecified congestive heart failure type Qualified Code(s): I50.9 - Heart failure, unspecified Disposition: Admitted As Inpatient Condition: Fair Time of Disposition: 02:57 Weakness HPI - General Chief complaint: ED Syncope Stated complaint: weakness/nausea Time Seen by Provider: 12/28/16 23:41 Source: patient, family, EMS Mode of arrival: EMS Limitations: no limitations Nursing Notes Reviewed: Yes Vital Signs Reviewed: Yes - History of Present Illness HPI Narrative: 86-year-old male history of COPD on home oxygen supplementation, congestive heart failure, hypertension, hyperlipidemia, chronic kidney disease and history of frequent falls presents to the ED via EMS for multiple complaints. Earlier today around 1999 patient was complaining of feeling cold. His gave him blankets say that he felt warm to the touch. Patient has a fever here 101.3. He has been complaining of some shortness of breath as well as a cough. He denies any chest pain. No sick contacts at home. He also had a episodes today where he fell out of bed striking his left eye on the nightstand. He denies any loss of consciousness. He does take aspirin for his heart. When the EMS attempted to transfer him he appeared very week requiring help. Family states this is abnormal for him. They however states he is acting at his baseline despite him getting his nighttime sleeping medication. They have also noticed his legs appear more swollen than usual and he has required multiple admissions for his congestive heart failure. He denies any extremity pain neck pain or back pain. He denies any nausea, vomiting or diarrhea. Family reports he also had a prior fall about a week ago in the bathroom. Pt Subjective Complaint: generalized weakness/fatigue Pain Scale: 1 - Related Data Home Medications Medication Instructions Recorded Confirmed Aspirin Enteric Coated [Aspirin EC] 81 mg PO DAILY 06/27/15 10/30/16 Atorvastatin Calcium [Lipitor] 20 mg PO HS 06/27/15 10/30/16 Isosorbide MONOnitrate (24 HR) 30 mg PO DAILY 06/27/15 10/30/16 [Imdur] Levothyroxine [Synthroid] 50 mcg PO DAILY 06/27/15 10/30/16 Montelukast [Singulair] 10 mg PO DAILY 06/27/15 10/30/16 Ramipril [Altace] 2.5 mg PO DAILY 06/27/15 10/30/16 Ranolazine [Ranexa] 500 mg PO BID 06/27/15 10/30/16 Temazepam [Restoril] 30 mg PO HS 06/27/15 10/30/16 Venlafaxine HCl [Venlafaxine HCl 75 mg PO DAILY 06/27/15 10/30/16 ER] Calcitriol [Rocaltrol] 0.25 mcg PO DAILY 04/18/16 10/30/16 Oxygen 2 l NS HS 04/18/16 10/30/16 aMILoride [Midamor] 5 mg PO DAILY 04/18/16 10/30/16 Fluticasone/Vilanterol [Breo 1 puff IH DAILY 10/29/16 10/30/16 Ellipta 100-25 Mcg INH] metOLazone [Metolazone] 2.5 mg PO DAILY 10/29/16 10/30/16 Previous Rx's Medication Instructions Recorded Furosemide [Lasix] 40 mg PO BID #28 tablet 04/20/16 Metoprolol XL (24 HR) Succ [Toprol 100 mg PO DAILY tab.er.24h 04/20/16 Xl] Potassium Chloride 20 meq PO DAILY #30 tab.er.prt 10/31/16 Allergies Allergy/AdvReac Type Severity Reaction Status Date / Time rivaroxaban [From Xarelto] Allergy Gastrointestinal Verified 12/23/16 10:26 Upset All systems ED: reviewed and negative except as stated. Review of Systems: As Per HPI Constitutional: Reports: fever, chills Eyes: Denies: eye pain, vision change ENT ED: Reports: congestion. Denies: dysphagia Cardiovascular: Denies: chest pain, palpitations, syncope Respiratory: Reports: cough, dyspnea Gastrointestinal: Denies: abdominal pain, nausea, vomiting Genitourinary: Denies: urgency, dysuria Musculoskeletal: Denies: back pain, neck pain Integumentary: Denies: rash, abrasion Neurological: Reports: weakness. Denies: headache Psychiatric: Denies: anxiety, depression Endocrine: Denies: fatigue Hematological/Lymphatic: Reports: easy bleeding Past Medical History - Past Medical History Attestation: Yes The following information was validated with the patient. 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) Psychiatric history: Reports: no psych history - Social History Smoking Status: Never smoker Smokeless Tobacco Status: No Alcohol use: Reports: none Drug use: Reports: none Physical Exam - General Limitations: no limitations General appearance: alert, in no apparent distress - Head Head exam: atraumatic, normocephalic, normal inspection - Eye Eye exam: Present: normal appearance, PERRL, EOMI, other (Left periorbital ecchymosis, small laceration lateral to the left eye, abrasion below the left eye) - ENT ENT exam: normal exam, normal oropharynx, mucous membranes moist - Neck Neck exam: Present: normal inspection, full ROM, trachea midline. Absent: tenderness - Expanded Neck Exam Neck exam focused ED: Absent: midline tenderness - Chest Chest inspection: Present: normal inspection, symmetric chest wall rise. Absent : tenderness - Respiratory Respiratory exam: Present: normal lung sounds bilaterally. Absent: respiratory distress, wheezes - Expanded Respiratory Exam Location: decreased breath sounds: Lower - Cardiovascular Cardiovascular exam: Present: regular rate, normal rhythm, normal heart sounds, systolic murmur (known mitral regurgitation) - Abdominal Exam Abdominal exam: Present: soft, Non-Tender, normal bowel sounds. Absent: tenderness, distention, guarding, rebound, rigidity - Extremities Exam Extremities exam: Present: full ROM, tenderness, pedal edema - Neurological Exam Neurological exam: Present: alert, oriented X3 - Skin Skin exam: Present: warm, dry, intact, normal color, other (Multiple areas of ecchymosis on the extremities) Course Course Narrative: 86-year-old male presents with multiple complaints. The family's main concern is his overall generalize weakness as well as a fever and cough. Patient appears in no acute distress lung sounds are clear bilaterally. Appears he also felt recently. Currently only meets 1 of 4 SIRS criteria but was febrile with a temperature 101.3. sepsis workup initiated as well as CT of the head and cervical spine due to the recent fall. Patients in agreement with this plan. They also say he is more swollen the usual will add a BNP. Patient and family are in agreement with this plan. - Reevaluation(s) Reevaluation #1: Patient's BNP is elevated 2100. He also has a leukocytosis 16. Creatinine function appears at baseline. No other significant abnormalities. Chest x-ray appears unremarkable however due to his fever and leukocytosis concerning for pneumonia a CT chest without contrast was performed. It did reveal a right lower lobe pneumonia. Patient will be admitted for the pneumonia as well as peripheral edema. He typically takes 20 mg Lasix twice a day. Given him a dose tonight. Family reports recently required admission force fluid overload and was placed on a Lasix drip. Patient and family are in agreement with this plan. CT head cervical spine or unremarkable. He was recently admitted and of October. We will treated for healthcare acquired pneumonia with vancomycin and Zosyn. The cultures have been drawn. Impression is HCAP, congestive heart failure exacerbation, weakness. Time: 02:47 - Consultations Consultation #1: Spoke with on-call hospitalist ashlee Metz to admit for healthcare associated pneumonia, congestive heart failure exacerbation, generalize weakness. No further orders at this time Time: 03:01 Vital Signs Temperature 101.3 F H 12/28/16 23:38 Pulse Rate 85 12/28/16 23:38 Respiratory Rate 20 12/28/16 23:38 Blood Pressure 129/67 12/28/16 23:38 O2 Sat by Pulse Oximetry 96 12/28/16 23:38 Temperature 99.9 F H 12/29/16 03:44 Pulse Rate 69 12/29/16 03:44 Respiratory Rate 24 12/29/16 03:44 Blood Pressure 106/61 12/29/16 03:44 O2 Sat by Pulse Oximetry 98 12/29/16 03:44 Oxygen Delivery Oxygen Delivery Room Air Weakness - MDM Narrative Medical decision making narrative: Patient was discussed with my attending physician who agrees with ED management and final disposition. They independently evaluated the patient. Please refer to their attestation to this encounter for additional information. This note was generated by [employer] voice recognition software and as a result grammatical or spelling errors may occur using this program. - Medical Records Medical records reviewed: Yes I reviewed the patient's medical records. - Lab Data Lab results reviewed: Yes I reviewed the patient's lab results. Result diagrams: 12/29/16 00:53 12/29/16 00:53 Lab Results 12/29/16 12/29/16 12/29/16 Range/Units 00:01 00:53 00:53 WBC 16.2 H (4.3-11.1) K/mcL RBC 3.35 L (4.19-5.50) M/mcL Hgb 10.4 L (12.9-16.9) g/dL Hct 30.9 L (37.5-50.1) % MCV 92.2 (83.0-100.0) fL MCH 31.0 (28.0-33.3) pg MCHC 33.7 (31.6-35.5) g/dL RDW 15.9 H (11.5-14.5) % Plt Count 168 (140-400) K/mcL MPV 9.8 (9.4-12.4) fL Immature Gran % 0.9 (0-4) % Seg Neutrophils % 84.7 % Lymphocytes % 4.6 % Monocytes % 9.6 % Eosinophils % 0.1 % Basophils % 0.1 % Neutrophils # 13.7 H (1.6-8.9) K/mcL Lymphocytes # 0.7 (0.6-4.6) K/mcL Monocytes # 1.6 H (0.0-1.3) K/mcL Eosinophils # 0.0 (0.0-0.6) K/mcL Basophils # 0.0 (0.0-0.2) K/mcL Sodium 134 L (136-145) mEq/L Potassium 4.0 (3.5-4.5) mEq/L Chloride 101 (98-109) mEq/L Carbon Dioxide 23 (19-29) mEq/L BUN 38 H (8-26) mg/dL Creatinine 1.68 H (0.72-1.25) mg/dL Est GFR ( Amer) 47 L (> 60) Est GFR (Non-Af Amer) 39 L (> 60) BUN/Creatinine Ratio 23 (6-26) Glucose 108 H (70-99) mg/dL Calculated Osmolality 288 (280-300) Lactic Acid (0.5-2.2) mmol/L Calcium 9.1 (8.6-10.8) mg/dL Total Bilirubin 1.3 H (0.2-1.2) mg/dL AST 36 H (5-34) Units/L ALT 26 (0-55) Units/L Alkaline Phosphatase 109 (38-126) Units/L Troponin I (0-0.03) ng/mL B-Natriuretic Peptide (0-100) pg/mL Serum Total Protein 6.7 (6.0-8.3) g/dL Albumin 3.2 L (3.5-5.0) g/dL Globulin 3.5 (2.4-3.5) g/dL Albumin/Globulin Ratio 0.9 L (1.1-2.2) Urine Color Yellow (Yellow) Urine Clarity Clear (Clear) Urine pH 6.0 (5.0-8.0) pH Units Ur Specific [place] 1.015 (1.010-1.025) Urine Protein Negative (Neg-Trace) mg/dL Urine Glucose (UA) Normal (Normal) mg/dL Urine Ketones Negative (Negative) mg/dL Urine Blood Negative (Negative) Urine Nitrite Negative (Negative) Urine Bilirubin Negative (Negative) Urine Urobilinogen Normal (Normal) mg/dL Ur Leukocyte Esterase Negative (Negative) Ur Culture Indicated? NO (NO) 12/29/16 12/29/16 12/29/16 Range/Units 00:53 00:53 00:53 WBC (4.3-11.1) K/mcL RBC (4.19-5.50) M/mcL Hgb (12.9-16.9) g/dL Hct (37.5-50.1) % MCV (83.0-100.0) fL MCH (28.0-33.3) pg MCHC (31.6-35.5) g/dL RDW (11.5-14.5) % Plt Count (140-400) K/mcL MPV (9.4-12.4) fL Immature Gran % (0-4) % Seg Neutrophils % % Lymphocytes % % Monocytes % % Eosinophils % % Basophils % % Neutrophils # (1.6-8.9) K/mcL Lymphocytes # (0.6-4.6) K/mcL Monocytes # (0.0-1.3) K/mcL Eosinophils # (0.0-0.6) K/mcL Basophils # (0.0-0.2) K/mcL Sodium (136-145) mEq/L Potassium (3.5-4.5) mEq/L Chloride (98-109) mEq/L Carbon Dioxide (19-29) mEq/L BUN (8-26) mg/dL Creatinine (0.72-1.25) mg/dL Est GFR ( Amer) (> 60) Est GFR (Non-Af Amer) (> 60) BUN/Creatinine Ratio (6-26) Glucose (70-99) mg/dL Calculated Osmolality (280-300) Lactic Acid 1.0 (0.5-2.2) mmol/L Calcium (8.6-10.8) mg/dL Total Bilirubin (0.2-1.2) mg/dL AST (5-34) Units/L ALT (0-55) Units/L Alkaline Phosphatase (38-126) Units/L Troponin I 0.03 (0-0.03) ng/mL B-Natriuretic Peptide 2114 H (0-100) pg/mL Serum Total Protein (6.0-8.3) g/dL Albumin (3.5-5.0) g/dL Globulin (2.4-3.5) g/dL Albumin/Globulin Ratio (1.1-2.2) Urine Color (Yellow) Urine Clarity (Clear) Urine pH (5.0-8.0) pH Units Ur Specific [place] (1.010-1.025) Urine Protein (Neg-Trace) mg/dL Urine Glucose (UA) (Normal) mg/dL Urine Ketones (Negative) mg/dL Urine Blood (Negative) Urine Nitrite (Negative) Urine Bilirubin (Negative) Urine Urobilinogen (Normal) mg/dL Ur Leukocyte Esterase (Negative) Ur Culture Indicated? (NO) - Radiology Data Radiology results reviewed: Yes I reviewed the patient's radiology results. Chest X-Ray 12/29/16 00:22 IMPRESSION: No focal airspace disease. Cardiomegaly D/ / Scar Maki MD / Scar Maki MD Interpreting Provider: Scar Maki MD Head CT 12/29/16 00:22 IMPRESSION: No acute intracranial abnormality. Generalized atrophy consistent with patient age. Chronic ischemic changes as above D/ / Lance Rodriguez MD / Lance Rodriguez MD Interpreting Provider: Lance Rodriguez MD Cervical Spine CT 12/29/16 00:23 IMPRESSION: No acute abnormality of the cervical spine. D/ / Scar Maki MD / Scar Maki MD Interpreting Provider: Scar Maki MD Chest CT 12/29/16 01:54 IMPRESSION: There is patchy right lung airspace disease particularly at the right lung base superimposed on chronic lung findings. Findings are most consistent with pneumonia. There is a small parapneumonic right pleural effusion. Calcific coronary artery disease status post CABG. D/ / Lance Rodriguez MD / Lance Rodriguez MD Interpreting Provider: Lance Rodriguez MD - EKG Data EKG attestation: Yes I reviewed and interpreted this EKG. EKG results narrative: EKG performed 42 atrial fibrillation 78 bpm QRS [address] elevations or depression, nonspecific T-wave flattening. Compared to old EKG performed 2016 shows atrial fibrillation 64 bpm with similar consistent findings. No acute ischemic changes. Critical Care Time Critical Care Time: No Attestation Statement - Attestation Attestation: I, Kraig Gold MD, personally evaluated this patient and discussed their management with the resident physician. I reviewed the resident's note and agree with the documented findings, medical decision making, and plan of care. 86-year-old male presents to the emergency department with a complaint of chills and shaking which started about 8 PM this evening. He has had some increased cough today with some green colored sputum. Also some increased shortness of breath. No chest pain. He did fall earlier and hit the left side of his face and head. No loss of consciousness. Family reports he falls frequently. On examination the patient is a well-developed well-nourished elderly male in no acute distress. He is alert and oriented 3. Is no cyanosis or diaphoresis. Chest is nontender to palpation. Breath sounds are decreased bilaterally with some bibasilar rales. No wheezes noted. Heart is irregularly irregular. Abdomen is soft and nontender with normal bowel sounds. There is 3 + pitting edema of the lower extremities bilaterally. Labs reviewed. Leukocytosis. Elevated BNP. Chest x-ray negative. CT of the chest does show right lower lobe pneumonia. EKG shows atrial fibrillation with normal heart rate and no acute changes compared to prior EKG. The hospitalist, Dr. Hinton, was consulted and accepted the admission of the patient.
[2016-12-29 00:38] LABS: Bilirubin,Urine Negative (Negative); Blood,Urine Negative (Negative); Clarity,Urine Clear (Clear); Color,Urine Yellow (Yellow); Glucose,Urine (UA) Normal (Normal); Ketones,Urine Negative (Negative); Leukocyte Esterase,Urine Negative (Negative); Nitrite,Urine Negative (Negative); Protein,Urine Negative (Neg-Trace); Specific Gravity,Urine 1.015 (1.010-1.025); Urobilinogen,Urine Normal (Normal)
[2016-12-29 01:03] LABS: Basophils % 0.1 %; Eosinophils % 0.1 %; Hematocrit 30.9 % (37.5-50.1); Hemoglobin 10.4 g/dL (12.9-16.9); Immature Granulocytes % 0.9 % (0-4); Lymphocytes # 0.7 K/mcL (0.6-4.6); Lymphocytes % 4.6 %; Mean Corpuscular HGB Conc 33.7 g/dL (31.6-35.5); Mean Corpuscular Volume 92.2 fL (83.0-100.0); Mean Platelet Volume 9.8 fL (9.4-12.4); Monocytes # 1.6 K/mcL (0.0-1.3); Monocytes % 9.6 %; Neutrophils # 13.7 K/mcL (1.6-8.9); Platelet Count 168 K/mcL (140-400); Red Blood Count 3.35 M/mcL (4.19-5.50); Red Cell Distribution Width 15.9 % (11.5-14.5); Segmented Neutrophils % 84.7 %
[2016-12-29 01:16] LABS: Albumin 3.2 g/dL (3.5-5.0); Albumin/Globulin Ratio 0.9 (1.1-2.2); Bilirubin,Total 1.3 mg/dL (0.2-1.2); Calcium 9.1 mg/dL (8.6-10.8); Globulin 3.5 g/dL (2.4-3.5); Total Protein 6.7 g/dL (6.0-8.3)
[2016-12-29] MEDS ORDERED: Furosemide 20 MG/2 ML VIAL IVP ONE (02:37)
[2016-12-29] MEDS ORDERED: Vancomycin 1,000 MG in D5% in Water 250 ML IVPB ONE (02:50)
[2016-12-29] MEDS ORDERED: Piperacillin/Tazobactam 3.375 GM in D5% in Water (Mini-Bag+) 100 ML IVPB ONE (02:50)
[2016-12-29] MEDS ORDERED: Piperacillin/Tazobactam 3.375 GM in D5% in Water 50 ML IVPB ONE (03:00)
[2016-12-29] MEDS ORDERED: Naloxone 0.4 MG/ML INJ IVP PRN (04:44)
[2016-12-29] MEDS ORDERED: Ondansetron 4 MG/2 ML VIAL IVP PRN (04:44)
[2016-12-29] MEDS ORDERED: *HR* Morphine 2 MG/ML SYRINGE IVP PRN (04:44)
[2016-12-29] MEDS ORDERED: Acetaminophen 325 MG TABLET PO PRN (04:44)
[2016-12-29 05:56] LABS: INR 1.4; Prothrombin Time 15.2 Seconds (9.4-12.1)
[2016-12-29] MEDS: Vancomycin 1,250 MG in D5% in Water 250 ML IVPB SCH (06:09)
[2016-12-29] MEDS: *HR* Heparin 5,000 UNIT/ML VIAL SQ SCH ×2 (06:11→17:53)
[2016-12-29] MEDS: Ipratropium/Albuterol Neb 3 ML IH SCH ×4 (07:32→20:36)
--- NOTE | 2016-12-29 07:32 | Internal Med History&Physical ---
Date of Encounter: 12/29/16 Time of Encounter: 07:27 Assessment and Plan (1) HCAP (healthcare-associated pneumonia) Current visit: Yes Status: Acute Right lower lobe pneumonia: Elevated white blood cell count, fever more than 101 degrees Fahrenheit, radiological evidence of infiltrative parenchymal disease. In view of her recent hospitalization patient meets the criteria for hospital- acquired pneumonia. This patient with a possible reason for fall. Plan: Blood cultures. IV vancomycin (pharmacy to dose) IV Zosyn. IV levofloxacin. Close monitoring of the respiratory status. If patient clinically worsens then we will call family for further evaluation. (2) Syncope Current visit: No Status: Acute The syncope is likely secondary to sepsis which is secondary to right lower lobe pneumonia. At this point we will continue antibiotic therapy. We will get physical therapy evaluation we will get occasional therapy evaluation. If patient has a recurrent falls and patient does not able to maintain himself then he might need of placement in a half-way for short-term rehabilitation. Qualifiers: Syncope type: unspecified Qualified Code(s): R55 - Syncope and collapse (3) Elevated troponin Current visit: No Status: Acute Possible secondary to demand ischemia. We will trend the troponin. (4) Essential hypertension Current visit: No Status: Chronic Blood pressure is very well controlled at this point and we will resume the home medications. (5) REJI (acute kidney injury) Current visit: No Status: Acute Creatinine is mildly elevated. This is likely secondary to acute kidney injury. Patient is receiving fluid We will repeat labs tomorrow. (6) Congestive heart failure Current visit: No Status: Chronic Patient is a combined congestive heart failure. BNP is for congestive heart failure. Resume home medications for congestive heart failure Qualifiers: Congestive heart failure type: unspecified congestive heart failure type Congestive heart failure chronicity: unspecified congestive heart failure chronicity Qualified Code(s): I50.9 - Heart failure, unspecified (7) Frail elderly Current visit: No Status: Acute This elderly gentleman who is frail. Patient will get benefit from short-term rehabilitation. (8) CAD (coronary artery disease) Current visit: No Status: Chronic Patient is known to have a coronary artery disease. We will resume the home medications for coronary artery disease. Qualifiers: Coronary Disease-Associated Artery/Lesion type: [place] artery [place] vs. transplanted heart: [place] heart Associated angina: without angina Qualified Code(s): I25.10 - Atherosclerotic heart disease of [place] coronary artery without angina pectoris (9) Atrial fibrillation Current visit: No Status: Chronic Patient is known to have a chronic atrial fibrillation. In view of the recurrent fall, patient is not on any anticoagulation. Qualifiers: Atrial fibrillation type: chronic Qualified Code(s): I48.2 - Chronic atrial fibrillation (10) DVT prophylaxis Current visit: No Status: Acute Heparin Decision-making: This patient has a moderate to severe risk of worsening in spite of being on appropriate medication due to the underlying chronic comorbid conditions Internal Medicine - H&P: HPI Chief complaint: Fall Admitted From: Emergency Dept Plans for Post Hospital Care: Home History of present illness: PCP: Dr. Vaughn villegas Cardiology: Dr. Daniels Brief past medical history: Hypertension, hyperlipidemia, chronic kidney disease stage III, congestive heart failure, COPD, oxygen supplementation for COPD, atrial fibrillation, previous coronary artery bypass graft. History of present medical illness: Around 8 PM last night patient was complaining of feeling cold. When his temperature was measured it was more than 100 degrees Fahrenheit. Patient went to the bed and it was noted by family members that patient had a fall sometime during night. Squad was called. Patient does not remember regarding fall. The squad found that patient was extremely weak and was not able to transfer back to the bed from floor. Family was concerned regarding this new development. This was the reason he came to the hospital for further evaluation. Patient denies chest pain, abdominal pain, nausea, vomiting, dizziness and diarrhea. There is a bruise noted on the left side of the eye. No obvious bleeding noted. No obvious injury noted other than mentioned. Workup in the emergency room: Patient was evaluated in the emergency room. Basic labs were drawn. Imaging was done to rule out any traumatic injury. There were apparently no medical injury in facial as well as cervical area. Patient underwent CT scan of the chest. CT scan of the chest did not reveal any pulmonary embolism but it did reveal pneumonia. Reason for admission: Healthcare acquired pneumonia. Elevated white count, febrile episode, radiological changes goes in favor of possibility of a pneumonia which is extremely high. This requires intravenous antibiotics. Family history: Noncontributory Past Med Surg Social Fam HX - Past Medical History Medical history: atrial fibrillation, cancer, CHF, COPD, coronary artery disease , hyperlipidemia, hypertension, renal disease, valvular heart disease, other Psychiatric history: no psych history - Past Surgical History Surgical History: coronary bypass (CABG) - Social History Smoking Status: Never smoker Smokeless Tobacco Status: No Alcohol use: none Drug use: none - Family History Mother Living Status: Hx Family Cardiac Disorders: Yes (HTN) Hx Family Cancer: Yes Hx Family Neurologic Disorders: Yes (cerebral hemorrhage) Internal Medicine - H&P: Meds Aspirin Enteric Coated [Aspirin EC] 81 mg PO DAILY 06/27/15 [History] Atorvastatin Calcium [Lipitor] 20 mg PO HS 06/27/15 [History] Isosorbide MONOnitrate (24 HR) [Imdur] 30 mg PO DAILY 06/27/15 [History] Levothyroxine [Synthroid] 50 mcg PO DAILY 06/27/15 [History] Montelukast [Singulair] 10 mg PO DAILY 06/27/15 [History] Ramipril [Altace] 2.5 mg PO DAILY 06/27/15 [History] Ranolazine [Ranexa] 500 mg PO BID 06/27/15 [History] Temazepam [Restoril] 30 mg PO HS 06/27/15 [History] Venlafaxine HCl [Venlafaxine HCl ER] 75 mg PO DAILY 06/27/15 [History] Calcitriol [Rocaltrol] 0.25 mcg PO DAILY 04/18/16 [History] Oxygen 2 l NS HS 04/18/16 [History] aMILoride [Midamor] 5 mg PO DAILY 04/18/16 [History] Furosemide [Lasix] 40 mg PO BID #28 tablet 04/20/16 [Rx] Metoprolol XL (24 HR) Succ [Toprol Xl] 100 mg PO DAILY tab.er.24h 04/20/16 [Rx] Fluticasone/Vilanterol [Breo Ellipta 100-25 Mcg INH] 1 puff IH DAILY 10/29/16 [ History] metOLazone [Metolazone] 2.5 mg PO DAILY 10/29/16 [History] Potassium Chloride 20 meq PO DAILY #30 tab.er.prt 10/31/16 [Rx] 3 Allergy/AdvReac Type Severity Reaction Status Date / Time rivaroxaban [From Xarelto] Allergy Gastrointestinal Verified 12/23/16 10:26 Upset All Systems PM: A 10-system review of systems was performed and is negative for pertinent findings except as documented above in the HPI. - Constitutional Constitutional: no chills, no fever(s), no night sweats - EENT Eyes: no change in vision, no discharge, no pain, no photophobia Ears: no ear discharge, no ear pain, no tinnitus Nose, mouth and throat: no dysphagia, no nasal discharge, no neck pain, no sore throat - Cardiovascular Cardiovascular ROS IM: no chest pain, no diaphoresis, no dyspnea, no lightheadedness, no palpitations, no syncope - Respiratory Respiratory: as per HPI, cough, dyspnea, excessive phlegm production, change in phlegm color, pain with cough, no wheezing - Gastrointestinal Gastrointestinal: no abdominal pain, no diarrhea, no hematemesis, no hematochezia, no melena, no nausea, no vomiting - Musculoskeletal Musculoskeletal ROS IM: no numbness, no tingling - Integumentary Integumentary IM: no rash, no unusual bruising - Neurological Neurological ROS: no confusion, no convulsions, no focal weakness, no numbness, no tingling, no tremor(s) - Hematologic/Lymphatic Hematologic/Lymphatic: no easy bruising - Constitutional Vitals: Temp Pulse Resp BP Pulse Ox 98.3 F 59 19 95/48 98 12/29/16 06:55 12/29/16 06:55 12/29/16 06:55 12/29/16 06:55 12/29/16 06:55 General appearance: Present: A&O X 3, pleasant, no acute distress, answers questions appropriately - Head Head exam: Present: atraumatic, normocephalic Additional comments: Examination of the head reveals bruise in the left side below eyeball around the cheek. It is not open wound. It is a slight bruise and I did not see any active bleeding from the bruise. - Eye Eye exam: Present: PERRL, conjuntiva pink, sclera anicteric Pupils: Present: PERRL - Neck Neck exam general surgery: Present: supple, trachea midline. Absent: lymphadenopathy - Respiratory Respiratory exam: Present: CTAB. Absent: accessory muscle use, rales, rhonchi, wheezes - Cardiovascular Cardiovascular exam: Present: RRR, +S1, +S2. Absent: diastolic murmur, gallop, rubs, systolic murmur - GI/Abdominal GI/Abdominal exam: Present: normal bowel sounds, soft, no peritoneal signs. Absent: distended, tenderness - Extremities Exam Extremities exam: Present: warm, radial pulses palpable and symmetrical. Absent : calf tenderness, cyanotic, pedal edema - Neurological Exam Neurological exam: Present: CN II-XII intact, oriented X3, no focal deficits. Absent: pronater drift, facial droop, speech deficit - Skin Skin exam: Present: dry, intact Internal Med - H&P Results - Labs CBC & Chem 7: 12/29/16 00:53 12/29/16 00:53 Labs: Cardiac Enzymes 12/29/16 Range/Units 05:20 Troponin I 0.05 H* (0-0.03) ng/mL
[2016-12-29] MEDS ORDERED: (Fluticasone/Vilanterol [Breo Ellipta 100-25 Mcg Inh] IH SCH (09:00)
[2016-12-29] MEDS: Furosemide 40 MG TABLET PO SCH ×2 (09:45→20:13)
[2016-12-29] MEDS: Aspirin Enteric Coated 81 MG Tablet PO SCH (09:45)
[2016-12-29] MEDS: Ranolazine 500 MG TAB.ER.12H PO SCH ×2 (09:45→20:13)
[2016-12-29] MEDS: Venlafaxine XR (24 HR) 75 MG CAP.ER.24H PO SCH (09:45)
[2016-12-29] MEDS: Isosorbide MONOnitrate (24 HR) 30 MG TAB.ER.24H PO SCH (09:45)
[2016-12-29] MEDS: aMILoride 5 MG TABLET PO SCH (09:45)
[2016-12-29] MEDS: Levofloxacin 750 MG/150 ML 750 MG/150 ML BAG IVPB SCH (09:46)
[2016-12-29] MEDS: Piperacillin/Tazobactam 3.375 GM in D5% in Water 50 ML IVPB SCH ×2 (09:46→16:36)
[2016-12-29] MEDS: Metoprolol XL (24 HR) Succ 50 MG TAB.ER.24H PO SCH (10:26)
[2016-12-29] MEDS: Temazepam 15 MG CAPSULE PO SCH (20:13)
[2016-12-29] MEDS ORDERED: NON-FORMULARY MEDICATION 1 EACH EACH (Oxygen [Oxygen] 2 L) NS SCH (21:00)
[2016-12-30] MEDS: Piperacillin/Tazobactam 3.375 GM in D5% in Water 50 ML IVPB SCH ×3 (00:10→17:46)
[2016-12-30] MEDS: Ipratropium/Albuterol Neb 3 ML IH SCH ×6 (00:22→20:09)
[2016-12-30] MEDS: *HR* Heparin 5,000 UNIT/ML VIAL SQ SCH ×2 (05:19→17:46)
[2016-12-30 06:13] LABS: Basophils % 0.4 %; Eosinophils # 0.2 K/mcL (0.0-0.6); Eosinophils % 1.9 %; Hematocrit 28.2 % (37.5-50.1); Hemoglobin 9.4 g/dL (12.9-16.9); Immature Granulocytes % 0.6 % (0-4); Lymphocytes # 1.1 K/mcL (0.6-4.6); Lymphocytes % 13.3 %; Mean Corpuscular HGB Conc 33.3 g/dL (31.6-35.5); Mean Corpuscular Hemoglobin 31.1 pg (28.0-33.3); Mean Corpuscular Volume 93.4 fL (83.0-100.0); Mean Platelet Volume 9.7 fL (9.4-12.4); Monocytes % 11.5 %; Platelet Count 138 K/mcL (140-400); Red Blood Count 3.02 M/mcL (4.19-5.50); Segmented Neutrophils % 72.3 %
[2016-12-30] MEDS: Vancomycin 1,250 MG in D5% in Water 250 ML IVPB SCH (06:25)
[2016-12-30 06:29] LABS: Calcium 8.2 mg/dL (8.6-10.8); Magnesium 1.8 mg/dL (1.6-2.6); Potassium 3.4 mEq/L (3.5-4.5)
[2016-12-30] MEDS: Ranolazine 500 MG TAB.ER.12H PO SCH ×2 (09:19→20:45)
[2016-12-30] MEDS: aMILoride 5 MG TABLET PO SCH (09:19)
[2016-12-30] MEDS: Metoprolol XL (24 HR) Succ 50 MG TAB.ER.24H PO SCH (09:19)
[2016-12-30] MEDS: Aspirin Enteric Coated 81 MG Tablet PO SCH (09:20)
[2016-12-30] MEDS: Isosorbide MONOnitrate (24 HR) 30 MG TAB.ER.24H PO SCH (09:20)
[2016-12-30] MEDS: Venlafaxine XR (24 HR) 75 MG CAP.ER.24H PO SCH (09:20)
[2016-12-30] MEDS: Furosemide 40 MG TABLET PO SCH ×2 (09:20→20:45)
[2016-12-30] MEDS ORDERED: Potassium Chloride Elixir 20 MEQ/15 ML UDC PO ONE (09:56)
--- NOTE | 2016-12-30 10:00 | Internal Med Progress Note ---
Date of Encounter: 12/30/16 Time of Encounter: 09:58 - Assessment and plan (1) HCAP (healthcare-associated pneumonia) Current Visit: Yes Status: Acute Assessment and plan: Patient claims that his shortness of breath is getting better. Patient is still occasional cough. Next line patient has clear to yellow expectoration. Patient is presently on vancomycin as per pharmacy guidelines. Noted that patient's serum creatinine is still elevated and this is likely secondary to the vancomycin. If the blood cultures are negative tomorrow we will discontinue vancomycin. We will continue to other antibiotics for anti-pseudomonal coverage. (2) Syncope Current Visit: No Status: Acute Assessment and plan: Patient denies any more syncopal episodes. Patient denies dizziness. Qualifiers: Syncope type: unspecified Qualified Code(s): R55 - Syncope and collapse (3) Elevated troponin Current Visit: No Status: Acute Assessment and plan: Patient's troponin is back to normal. The elevated troponin is likely secondary to demand ischemia. There is no need to call cardiology for elevated troponin. (4) Essential hypertension Current Visit: No Status: Chronic (5) REJI (acute kidney injury) Current Visit: No Status: Acute Assessment and plan: Patient likely has acute kidney injury. And is on currently vancomycin and that is the reason his creatinine is still elevated. We will continue this medication for today. Once the blood culture is negative for 48 hours then we can discontinue vancomycin (6) Congestive heart failure Current Visit: No Status: Chronic Assessment and plan: Plan as above Qualifiers: Congestive heart failure type: unspecified congestive heart failure type Congestive heart failure chronicity: unspecified congestive heart failure chronicity Qualified Code(s): I50.9 - Heart failure, unspecified (7) Frail elderly Current Visit: No Status: Acute Assessment and plan: Spoke to him patient at length. Awaiting for family to come here. We will get physical therapy/occupational therapy evaluation. (8) CAD (coronary artery disease) Current Visit: No Status: Chronic Assessment and plan: Stable currently no chest Qualifiers: Coronary Disease-Associated Artery/Lesion type: [place] artery [place] vs. transplanted heart: [place] heart Associated angina: without angina Qualified Code(s): I25.10 - Atherosclerotic heart disease of [place] coronary artery without angina pectoris (9) Atrial fibrillation Current Visit: No Status: Chronic Assessment and plan: Rate controlled atrial fibrillation. Due to the multiple falls patient is not on any anticoagulation. Qualifiers: Atrial fibrillation type: chronic Qualified Code(s): I48.2 - Chronic atrial fibrillation (10) DVT prophylaxis Current Visit: No Status: Acute Assessment and plan: SCD - Subjective Interval history: Patient seen and examined. Chart reviewed. Next line patient is comfortably sitting up in a bed. Patient denies any chest pain, shortness of breath, nausea, vomiting, abdominal pain, dizziness and diarrhea. - Constitutional Vitals: Temp Pulse Resp BP Pulse Ox 97.9 F 76 16 100/74 97 12/30/16 03:49 12/30/16 03:49 12/30/16 07:25 12/30/16 07:25 12/30/16 07:25 General appearance: Present: A&O X 3, pleasant, no acute distress, answers questions appropriately - Head Head exam: Present: atraumatic, normocephalic - Eye Eye exam: Present: PERRL, conjuntiva pink, sclera anicteric Pupils: Present: PERRL - Neck Neck exam general surgery: Present: supple, trachea midline. Absent: lymphadenopathy - Respiratory Respiratory exam: Present: CTAB. Absent: accessory muscle use, rales, rhonchi, wheezes - Cardiovascular Cardiovascular exam: Present: RRR, +S1, +S2. Absent: diastolic murmur, gallop, rubs, systolic murmur - GI/Abdominal GI/Abdominal exam: Present: normal bowel sounds, soft, no peritoneal signs. Absent: distended, tenderness - Extremities Exam Extremities exam: Present: warm, radial pulses palpable and symmetrical. Absent : calf tenderness, cyanotic, pedal edema - Neurological Exam Neurological exam: Present: CN II-XII intact, oriented X3, no focal deficits. Absent: pronater drift, facial droop, speech deficit - Skin Skin exam: Present: dry, intact Internal Medicine: Result - Labs CBC & Chem 7: 12/30/16 05:54 12/30/16 05:54 Labs: Short CBC 12/30/16 Range/Units 05:54 WBC 8.2 (4.3-11.1) K/mcL Hgb 9.4 L (12.9-16.9) g/dL Hct 28.2 L (37.5-50.1) % Plt Count 138 L (140-400) K/mcL Neutrophils # 6.0 (1.6-8.9) K/mcL BMP 12/30/16 05:54 Sodium 135 L Potassium 3.4 L Chloride 102 Carbon Dioxide 25 BUN 38 H Creatinine 1.73 H Glucose 97 Calcium 8.2 L Cardiac Enzymes 12/29/16 12/29/16 Range/Units 11:13 18:14 Troponin I 0.03 0.03 (0-0.03) ng/mL - ABG Interpretation ABG results: PT/INR, D-dimer PT 15.2 Seconds (9.4-12.1) H 12/29/16 05:20 Consult Discharge Plan - Plan Referrals: Amari Alcantara DO [Primary Care Provider] -
[2016-12-30] MEDS: Temazepam 15 MG CAPSULE PO SCH (20:45)
[2016-12-31] MEDS: Piperacillin/Tazobactam 3.375 GM in D5% in Water 50 ML IVPB SCH ×3 (00:10→16:20)
[2016-12-31] MEDS: Ipratropium/Albuterol Neb 3 ML IH SCH ×7 (00:13→23:08)
[2016-12-31 05:30] LABS: Basophils % 0.6 %; Eosinophils # 0.3 K/mcL (0.0-0.6); Eosinophils % 4.5 %; Hematocrit 28.3 % (37.5-50.1); Hemoglobin 9.2 g/dL (12.9-16.9); Immature Granulocytes % 0.4 % (0-4); Lymphocytes # 1.4 K/mcL (0.6-4.6); Lymphocytes % 19.8 %; Mean Corpuscular HGB Conc 32.5 g/dL (31.6-35.5); Mean Corpuscular Hemoglobin 30.7 pg (28.0-33.3); Mean Corpuscular Volume 94.3 fL (83.0-100.0); Mean Platelet Volume 9.7 fL (9.4-12.4); Monocytes % 14.3 %; Neutrophils # 4.3 K/mcL (1.6-8.9); Platelet Count 157 K/mcL (140-400); Red Cell Distribution Width 16.2 % (11.5-14.5); Segmented Neutrophils % 60.4 %
[2016-12-31 05:33] LABS: Albumin/Globulin Ratio 0.7 (1.1-2.2); Bilirubin,Total 0.9 mg/dL (0.2-1.2); Calcium 8.1 mg/dL (8.6-10.8); Globulin 3.3 g/dL (2.4-3.5); Potassium 3.8 mEq/L (3.5-4.5); Total Protein 5.6 g/dL (6.0-8.3)
[2016-12-31 05:35] LABS: Albumin 2.3 g/dL (3.5-5.0)
[2016-12-31] MEDS: Vancomycin 1,250 MG in D5% in Water 250 ML IVPB SCH (06:51)
[2016-12-31] MEDS: *HR* Heparin 5,000 UNIT/ML VIAL SQ SCH ×2 (06:52→18:19)
[2016-12-31] MEDS: Ranolazine 500 MG TAB.ER.12H PO SCH ×2 (08:18→20:46)
[2016-12-31] MEDS: Metoprolol XL (24 HR) Succ 50 MG TAB.ER.24H PO SCH (08:18)
[2016-12-31] MEDS: aMILoride 5 MG TABLET PO SCH (08:19)
[2016-12-31] MEDS: Isosorbide MONOnitrate (24 HR) 30 MG TAB.ER.24H PO SCH (08:19)
[2016-12-31] MEDS: Venlafaxine XR (24 HR) 75 MG CAP.ER.24H PO SCH (08:19)
[2016-12-31] MEDS: Aspirin Enteric Coated 81 MG Tablet PO SCH (08:19)
[2016-12-31] MEDS: Furosemide 40 MG TABLET PO SCH (08:19)
[2016-12-31] MEDS: Levofloxacin 750 MG/150 ML 750 MG/150 ML BAG IVPB SCH (10:57)
--- NOTE | 2016-12-31 16:52 | Internal Med Progress Note ---
Date of Encounter: 12/31/16 Time of Encounter: 16:50 - Assessment and plan (1) HCAP (healthcare-associated pneumonia) Current Visit: Yes Status: Acute Assessment and plan: Right-sided pneumonia which is multifocal. He is on Levaquin and Rocephin and vancomycin. He presented with high fever and normal running low blood pressure. His renal function had worsened. Vancomycin can be DC'd. [place], mentioned would be Levaquin and Flagyl. For now we will keep on Rocephin.. (2) Sepsis Current Visit: Yes Status: Acute Assessment and plan: Sepsis secondary to pneumonia. Came in with high temp and now blood pressures running low. His renal function has deteriorated. Hold diuretics and lisinopril potassium and recheck CBC CMP every day. Gentle IV hydration. I reviewed his echocardiogram which showed EF greater than 65% with diastolic dysfunction. Qualifiers: Sepsis type: sepsis due to unspecified organism Qualified Code(s): A41.9 - Sepsis, unspecified organism (3) [id number] renal failure Current Visit: No Status: Chronic Assessment and plan: Patient has stage IV chronic kidney disease and his creatinine has worsened to 2. This could be due to sepsis versus hypovolemia. We will remove nephrotoxin hold lisinopril and Lasix and potassium and give gentle IV hydration. CBC CMP Qualifiers: Acute renal failure type: unspecified Chronic kidney disease stage: stage 4 (severe) Qualified Code(s): N17.9 - Acute kidney failure, unspecified; N18.4 - Chronic kidney disease, stage 4 (severe); N18.4 - Chronic kidney disease , stage 4 (severe); N18.4 - Chronic kidney disease, stage 4 (severe); N18.4 - Chronic kidney disease, stage 4 (severe) (4) COPD (chronic obstructive pulmonary disease) Current Visit: No Status: Chronic Assessment and plan: Start duo nebs. He has significant pulmonary hypertension Qualifiers: COPD type: unspecified COPD Qualified Code(s): J44.9 - Chronic obstructive pulmonary disease, unspecified (5) Atrial fibrillation Current Visit: No Status: Chronic Assessment and plan: Rate controlled atrial fibrillation. Due to the multiple falls patient is not on any anticoagulation. Qualifiers: Atrial fibrillation type: chronic Qualified Code(s): I48.2 - Chronic atrial fibrillation - Subjective Interval history: Admitted for right-sided multifocal pneumonia, sepsis syndrome, acute on chronic renal failure, COPD exacerbation. He has underlying chronic atrial fibrillation but not a candidate for anticoagulation secondary to multiple falls. I think aspirin can be given. He wants to go home however his lab work has shown deterioration of renal function and low blood pressure. Detailed discussion with patient and family plans to keep him until underlying condition improves. I suspect he has sepsis syndrome. - Constitutional Vitals: Temp Pulse Resp BP Pulse Ox 97.7 F 67 16 92/51 97 12/31/16 15:11 12/31/16 15:11 12/31/16 15:58 12/31/16 15:58 12/31/16 15:58 General appearance: Present: A&O X 3, pleasant, no acute distress, answers questions appropriately - Head Head exam: Present: atraumatic, normocephalic - Eye Eye exam: Present: PERRL, conjuntiva pink, sclera anicteric Pupils: Present: PERRL - Neck Neck exam general surgery: Present: supple, trachea midline. Absent: lymphadenopathy - Respiratory Respiratory exam: Present: decreased breath sounds. Absent: accessory muscle use, rales, rhonchi, wheezes - Cardiovascular Cardiovascular exam: Present: RRR, +S1, +S2. Absent: diastolic murmur, gallop, rubs, systolic murmur - GI/Abdominal GI/Abdominal exam: Present: normal bowel sounds, soft, no peritoneal signs. Absent: distended, tenderness - Extremities Exam Extremities exam: Present: warm, radial pulses palpable and symmetrical. Absent : calf tenderness, cyanotic, pedal edema - Neurological Exam Neurological exam: Present: CN II-XII intact, oriented X3, no focal deficits. Absent: pronater drift, facial droop, speech deficit - Skin Skin exam: Present: dry, intact Internal Medicine: Result - Labs CBC & Chem 7: 12/31/16 05:06 12/31/16 05:06 Labs: Short CBC 12/31/16 Range/Units 05:06 WBC 7.1 (4.3-11.1) K/mcL Hgb 9.2 L (12.9-16.9) g/dL Hct 28.3 L (37.5-50.1) % Plt Count 157 (140-400) K/mcL Neutrophils # 4.3 (1.6-8.9) K/mcL BMP 12/31/16 05:06 Sodium 137 Potassium 3.8 Chloride 103 Carbon Dioxide 25 BUN 36 H Creatinine 2.02 H Glucose 93 Calcium 8.1 L Liver Function 12/31/16 Range/Units 05:06 Total Bilirubin 0.9 (0.2-1.2) mg/dL AST 31 (5-34) Units/L ALT 21 (0-55) Units/L Alkaline Phosphatase 86 (38-126) Units/L Albumin 2.3 L D (3.5-5.0) g/dL - ABG Interpretation ABG results: PT/INR, D-dimer PT 15.2 Seconds (9.4-12.1) H 12/29/16 05:20 Consult Discharge Plan - Plan Referrals: Amari Alcantara DO [Primary Care Provider] -
[2016-12-31] MEDS: 0.9 % Sodium Chloride 1,000 ML IVC SCH (18:15)
[2016-12-31] MEDS: MetroNIDAZOLE 500 MG/100 ML 500 MG/100 ML BAG IVPB SCH (18:23)
[2016-12-31] MEDS: Temazepam 15 MG CAPSULE PO SCH (20:46)
[2017-01-01] MEDS ORDERED: methylPREDNISolone 125 MG/2 ML VIAL IVP SCH
[2017-01-01] MEDS: Piperacillin/Tazobactam 3.375 GM in D5% in Water 50 ML IVPB SCH ×3 (01:30→18:49)
[2017-01-01] MEDS: MetroNIDAZOLE 500 MG/100 ML 500 MG/100 ML BAG IVPB SCH ×3 (01:30→22:51)
[2017-01-01] MEDS: Ipratropium/Albuterol Neb 3 ML IH SCH ×6 (04:13→23:13)
[2017-01-01 05:40] LABS: Basophils % 0.4 %; Eosinophils # 0.4 K/mcL (0.0-0.6); Eosinophils % 5.3 %; Hematocrit 29.1 % (37.5-50.1); Hemoglobin 9.4 g/dL (12.9-16.9); Immature Granulocytes % 0.6 % (0-4); Lymphocytes # 1.7 K/mcL (0.6-4.6); Lymphocytes % 21.5 %; Mean Corpuscular HGB Conc 32.3 g/dL (31.6-35.5); Mean Corpuscular Hemoglobin 30.6 pg (28.0-33.3); Mean Corpuscular Volume 94.8 fL (83.0-100.0); Mean Platelet Volume 9.9 fL (9.4-12.4); Monocytes % 12.5 %; Neutrophils # 4.7 K/mcL (1.6-8.9); Platelet Count 159 K/mcL (140-400); Red Blood Count 3.07 M/mcL (4.19-5.50); Red Cell Distribution Width 16.2 % (11.5-14.5); Segmented Neutrophils % 59.7 %
[2017-01-01 05:57] LABS: Albumin 2.3 g/dL (3.5-5.0); Albumin/Globulin Ratio 0.7 (1.1-2.2); Bilirubin,Total 0.8 mg/dL (0.2-1.2); Calcium 8.2 mg/dL (8.6-10.8); Globulin 3.4 g/dL (2.4-3.5); Potassium 3.8 mEq/L (3.5-4.5); Total Protein 5.7 g/dL (6.0-8.3)
[2017-01-01] MEDS: *HR* Heparin 5,000 UNIT/ML VIAL SQ SCH ×2 (06:13→18:52)
[2017-01-01] MEDS: Isosorbide MONOnitrate (24 HR) 30 MG TAB.ER.24H PO SCH (09:04)
[2017-01-01] MEDS: Aspirin Enteric Coated 81 MG Tablet PO SCH (09:04)
[2017-01-01] MEDS: Venlafaxine XR (24 HR) 75 MG CAP.ER.24H PO SCH (09:04)
[2017-01-01] MEDS: aMILoride 5 MG TABLET PO SCH (09:05)
[2017-01-01] MEDS: Ranolazine 500 MG TAB.ER.12H PO SCH ×2 (09:05→20:34)
[2017-01-01] MEDS: Metoprolol XL (24 HR) Succ 50 MG TAB.ER.24H PO SCH (09:06)
[2017-01-01] MEDS ORDERED: Aminoglycoside Consult 1 EACH MC ONE (11:11)
[2017-01-01] MEDS: 0.9 % Sodium Chloride 1,000 ML IVC SCH (11:44)
--- NOTE | 2017-01-01 16:36 | Internal Med Progress Note ---
Date of Encounter: 01/01/17 Time of Encounter: 16:34 - Assessment and plan (1) HCAP (healthcare-associated pneumonia) Current Visit: Yes Status: Acute Assessment and plan: Right-sided pneumonia which is multifocal. He is on Levaquin and Rocephin and vancomycin. He presented with high fever and normal running low blood pressure. His renal function had worsened. Vancomycin can be DC'd. [place], mentioned would be Levaquin and Flagyl. For now we will keep on Rocephin.. (2) Sepsis Current Visit: Yes Status: Acute Assessment and plan: Sepsis secondary to pneumonia. Came in with high temp and now blood pressures running low. His renal function has deteriorated. Hold diuretics and lisinopril potassium and recheck CBC CMP every day. Gentle IV hydration. I reviewed his echocardiogram which showed EF greater than 65% with diastolic dysfunction. Qualifiers: Sepsis type: sepsis due to unspecified organism Qualified Code(s): A41.9 - Sepsis, unspecified organism (3) [id number] renal failure Current Visit: No Status: Chronic Assessment and plan: Patient has stage IV chronic kidney disease and his creatinine has worsened to 2.26. This could be due to sepsis versus hypovolemia. We will remove nephrotoxin hold lisinopril and Lasix and potassium and give gentle IV hydration. CBC CMP Qualifiers: Acute renal failure type: unspecified Chronic kidney disease stage: stage 4 (severe) Qualified Code(s): N17.9 - Acute kidney failure, unspecified; N18.4 - Chronic kidney disease, stage 4 (severe); N18.4 - Chronic kidney disease , stage 4 (severe); N18.4 - Chronic kidney disease, stage 4 (severe); N18.4 - Chronic kidney disease, stage 4 (severe) (4) COPD (chronic obstructive pulmonary disease) Current Visit: No Status: Chronic Assessment and plan: Start duo nebs. He has significant pulmonary hypertension Qualifiers: COPD type: unspecified COPD Qualified Code(s): J44.9 - Chronic obstructive pulmonary disease, unspecified (5) Atrial fibrillation Current Visit: No Status: Chronic Assessment and plan: Rate controlled atrial fibrillation. Due to the multiple falls patient is not on any anticoagulation. Qualifiers: Atrial fibrillation type: chronic Qualified Code(s): I48.2 - Chronic atrial fibrillation - Subjective Interval history: Admitted for right-sided multifocal pneumonia, sepsis syndrome, acute on chronic renal failure, COPD exacerbation. He has underlying chronic atrial fibrillation but not a candidate for anticoagulation secondary to multiple falls. I think aspirin can be given. He wants to go home however his lab work has shown deterioration of renal function and low blood pressure. Detailed discussion with patient and family plans to keep him until underlying condition improves. I suspect he has sepsis syndrome. 01/01 overall improved breathing. Blood examination showed some rhonchi which I think because IV steroids are helping him. Overall is stable - Constitutional Vitals: Temp Pulse Resp BP Pulse Ox 98.3 F 77 18 100/50 96 01/01/17 16:15 01/01/17 16:15 01/01/17 16:15 01/01/17 16:15 01/01/17 16:15 General appearance: Present: A&O X 3, pleasant, no acute distress, answers questions appropriately - Head Head exam: Present: atraumatic, normocephalic - Eye Eye exam: Present: PERRL, conjuntiva pink, sclera anicteric Pupils: Present: PERRL - Neck Neck exam general surgery: Present: supple, trachea midline. Absent: lymphadenopathy - Respiratory Respiratory exam: Present: decreased breath sounds, rhonchi. Absent: accessory muscle use, rales, wheezes - Cardiovascular Cardiovascular exam: Present: RRR, +S1, +S2. Absent: diastolic murmur, gallop, rubs, systolic murmur - GI/Abdominal GI/Abdominal exam: Present: normal bowel sounds, soft, no peritoneal signs. Absent: distended, tenderness - Extremities Exam Extremities exam: Present: warm, radial pulses palpable and symmetrical. Absent : calf tenderness, cyanotic, pedal edema - Neurological Exam Neurological exam: Present: CN II-XII intact, oriented X3, no focal deficits. Absent: pronater drift, facial droop, speech deficit - Skin Skin exam: Present: dry, intact Internal Medicine: Result - Labs CBC & Chem 7: 01/01/17 05:10 01/01/17 05:10 Labs: Short CBC 01/01/17 Range/Units 05:10 WBC 7.9 (4.3-11.1) K/mcL Hgb 9.4 L (12.9-16.9) g/dL Hct 29.1 L (37.5-50.1) % Plt Count 159 (140-400) K/mcL Neutrophils # 4.7 (1.6-8.9) K/mcL BMP 01/01/17 05:10 Sodium 137 Potassium 3.8 Chloride 104 Carbon Dioxide 25 BUN 36 H Creatinine 2.06 H Glucose 90 Calcium 8.2 L Liver Function 01/01/17 Range/Units 05:10 Total Bilirubin 0.8 (0.2-1.2) mg/dL AST 28 (5-34) Units/L ALT 22 (0-55) Units/L Alkaline Phosphatase 86 (38-126) Units/L Albumin 2.3 L (3.5-5.0) g/dL - ABG Interpretation ABG results: PT/INR, D-dimer PT 15.2 Seconds (9.4-12.1) H 12/29/16 05:20 Consult Discharge Plan - Plan Referrals: Amari Alcantara DO [Primary Care Provider] -
[2017-01-01] MEDS: Temazepam 15 MG CAPSULE PO SCH (20:33)
[2017-01-02] MEDS: 0.9 % Sodium Chloride 1,000 ML IVC SCH (01:04)
[2017-01-02] MEDS: Piperacillin/Tazobactam 3.375 GM in D5% in Water 50 ML IVPB SCH ×2 (01:04→08:16)
[2017-01-02] MEDS: MetroNIDAZOLE 500 MG/100 ML 500 MG/100 ML BAG IVPB SCH ×2 (01:04→10:25)
[2017-01-02] MEDS: Ipratropium/Albuterol Neb 3 ML IH SCH ×3 (04:28→11:06)
[2017-01-02 05:06] LABS: Basophils % 0.5 %; Eosinophils # 0.4 K/mcL (0.0-0.6); Eosinophils % 5.1 %; Hematocrit 30.2 % (37.5-50.1); Hemoglobin 9.7 g/dL (12.9-16.9); Immature Granulocytes % 0.4 % (0-4); Lymphocytes # 1.4 K/mcL (0.6-4.6); Lymphocytes % 19.6 %; Mean Corpuscular HGB Conc 32.1 g/dL (31.6-35.5); Mean Corpuscular Hemoglobin 30.6 pg (28.0-33.3); Mean Corpuscular Volume 95.3 fL (83.0-100.0); Mean Platelet Volume 9.6 fL (9.4-12.4); Monocytes # 0.9 K/mcL (0.0-1.3); Monocytes % 12.2 %; Neutrophils # 4.5 K/mcL (1.6-8.9); Platelet Count 171 K/mcL (140-400); Red Blood Count 3.17 M/mcL (4.19-5.50); Red Cell Distribution Width 16.4 % (11.5-14.5); Segmented Neutrophils % 62.2 %
[2017-01-02] MEDS: *HR* Heparin 5,000 UNIT/ML VIAL SQ SCH (05:19)
[2017-01-02 05:24] LABS: Albumin 2.6 g/dL (3.5-5.0); Albumin/Globulin Ratio 0.8 (1.1-2.2); Bilirubin,Total 1.1 mg/dL (0.2-1.2); Calcium 8.6 mg/dL (8.6-10.8); Globulin 3.3 g/dL (2.4-3.5); Potassium 3.7 mEq/L (3.5-4.5); Total Protein 5.9 g/dL (6.0-8.3)
[2017-01-02 08:17] VITALS: BP 128/70
--- NOTE | 2017-01-02 09:11 | Electrocardiograph Report ---
[place] [id number] Test Date: 2016-12-29 Pat Name: Dale Ames Department: [id number] Room: 3A32 Gender: M [employer] Operator: PARVIN : 1930 Requested By: Davin Fowler Order Number: [id number] Reading MD: Dk Conner DO Measurements Intervals [place] Rate: 78 P: [place]: 0 QRS: -12 QRSD: 105 T: 0 QT: 371 QTc: 404 Interpretive Statements ATRIAL FIBRILLATION NONSPECIFIC ST & T-WAVE ABNORMALITY ABNORMAL RHYTHM ECG Electronically Signed On 01-02-2017 9:10:13 EST by Dk Conner DO
--- NOTE | 2017-01-02 09:46 | Discharge Summary ---
Date of Encounter: 01/02/17 Time of Encounter: 09:40 - Discharge Diagnosis (1) HCAP (healthcare-associated pneumonia) Priority: Primary Status: Acute (2) Sepsis Priority: Primary Status: Acute Qualifiers: Sepsis type: sepsis due to unspecified organism Qualified Code(s): A41.9 - Sepsis, unspecified organism (3) [id number]-cpyqujf renal failure Priority: Secondary Status: Chronic Qualifiers: Acute renal failure type: unspecified Chronic kidney disease stage: stage 4 (severe) Qualified Code(s): N17.9 - Acute kidney failure, unspecified; N18.4 - Chronic kidney disease, stage 4 (severe); N18.4 - Chronic kidney disease , stage 4 (severe); N18.4 - Chronic kidney disease, stage 4 (severe); N18.4 - Chronic kidney disease, stage 4 (severe) (4) COPD (chronic obstructive pulmonary disease) Priority: Secondary Status: Chronic Qualifiers: COPD type: unspecified COPD Qualified Code(s): J44.9 - Chronic obstructive pulmonary disease, unspecified (5) Atrial fibrillation Priority: Secondary Status: Chronic Qualifiers: Atrial fibrillation type: chronic Qualified Code(s): I48.2 - Chronic atrial fibrillation - Discharge Medications Prescriptions: Ipratropium/Albuterol Neb [Duoneb] 3 ml IH Q6HR #120 inhsol Amoxicillin/Clavulanate [Augmentin] 875 mg PO BIDWM #20 tablet GuaiFENesin ER [Mucinex] 600 mg PO BID #20 tbbp.12hr Home Medications: Aspirin Enteric Coated [Aspirin EC] 81 mg PO DAILY 06/27/15 [History] Atorvastatin Calcium [Lipitor] 20 mg PO HS 06/27/15 [History] Isosorbide MONOnitrate (24 HR) [Imdur] 30 mg PO DAILY 06/27/15 [History] Levothyroxine [Synthroid] 50 mcg PO DAILY 06/27/15 [History] Montelukast [Singulair] 10 mg PO DAILY 06/27/15 [History] Ramipril [Altace] 5 mg PO DAILY 06/27/15 [History] Ranolazine [Ranexa] 500 mg PO BID 06/27/15 [History] Temazepam [Restoril] 30 mg PO HS 06/27/15 [History] Venlafaxine HCl [Venlafaxine HCl ER] 75 mg PO DAILY 06/27/15 [History] Calcitriol [Rocaltrol] 0.25 mcg PO DAILY 04/18/16 [History] Oxygen 2 l NS HS 04/18/16 [History] aMILoride [Midamor] 5 mg PO DAILY 04/18/16 [History] Furosemide [Lasix] 40 mg PO BID #28 tablet 04/20/16 [Rx] Metoprolol XL (24 HR) Succ [Toprol Xl] 100 mg PO DAILY tab.er.24h 04/20/16 [Rx] Fluticasone/Vilanterol [Breo Ellipta 100-25 Mcg INH] 1 puff IH DAILY 10/29/16 [ History] metOLazone [Metolazone] 2.5 mg PO DAILY 10/29/16 [History] Potassium Chloride 20 meq PO DAILY #30 tab.er.prt 10/31/16 [Rx] Acetaminophen [Tylenol] 650 mg PO Q6HR PRN tablet 01/02/17 [Rx] Amoxicillin/Clavulanate [Augmentin] 875 mg PO BIDWM #20 tablet 01/02/17 [Rx] GuaiFENesin ER [Mucinex] 600 mg PO BID #20 tbbp.12hr 01/02/17 [Rx] Ipratropium/Albuterol Neb [Duoneb] 3 ml IH Q6HR #120 inhsol 01/02/17 [Rx] Allergies/Adverse Reactions: 3 Allergy/AdvReac Type Severity Reaction Status Date / Time rivaroxaban [From Xarelto] AdvReac Gastrointestinal Verified 12/29/16 13:33 Upset Date of admission: 12/29/16 04:44 Primary care physician: Amari Alcantara Discharging clinician: Mert Rizvi Anticipated date of discharge: 01/02/17 - Patient Status Disposition: Home, Self-Care Condition: Fair Overall status at discharge: patient is progressing back to baseline - Discharge Instructions Follow Up With: Amari Alcantara DO [Primary Care Provider] - - Diet and Activity Activity: resume usual activities as tolerated Diet: advance to your usual diet Hospital course: Mr. Ames is a 86 year old male Admitted for right-sided multifocal pneumonia , sepsis syndrome, acute on chronic renal failure, COPD exacerbation. He has underlying chronic atrial fibrillation but not a candidate for anticoagulation secondary to multiple falls. I think aspirin can be given. He wanted to go home however his lab work has shown deterioration of renal function and low blood pressure. He kept him on IV antibiotics and nebulizer treatment and Mucinex. His oxygenation has improved and currently he is on 2 L but DECISION saturation is around 98%. He is afebrile white count has normalized and he is ambulatory. Patient can be discharged home with oral antibiotics and nebulizers now. - Time Spent with Patient Total time spent providing and/or coordinating discharge services: Greater than 30 minutes - Constitutional Vitals: Temp Pulse Resp BP Pulse Ox 98.7 F 74 16 128/70 97 01/02/17 08:13 01/02/17 08:13 01/02/17 08:13 01/02/17 08:13 01/02/17 08:13 General appearance: Present: A&O X 3, pleasant, no acute distress, answers questions appropriately - Head Head exam: Present: atraumatic, normocephalic - Eye Eye exam: Present: PERRL, conjuntiva pink, sclera anicteric Pupils: Present: PERRL - Neck Neck exam general surgery: Present: supple, trachea midline. Absent: lymphadenopathy - Respiratory Respiratory exam: Present: CTAB. Absent: accessory muscle use, rales, rhonchi, wheezes - Cardiovascular Cardiovascular exam: Present: RRR, +S1, +S2. Absent: diastolic murmur, gallop, rubs, systolic murmur - GI/Abdominal GI/Abdominal exam: Present: normal bowel sounds, soft, no peritoneal signs. Absent: distended, tenderness - Extremities Exam Extremities exam: Present: warm, radial pulses palpable and symmetrical. Absent : calf tenderness, cyanotic, pedal edema - Neurological Exam Neurological exam: Present: CN II-XII intact, oriented X3, no focal deficits. Absent: pronater drift, facial droop, speech deficit - Skin Skin exam: Present: dry, intact
[2017-01-02] MEDS: Aspirin Enteric Coated 81 MG Tablet PO SCH (10:23)
[2017-01-02] MEDS: Metoprolol XL (24 HR) Succ 50 MG TAB.ER.24H PO SCH (10:23)
[2017-01-02] MEDS: Isosorbide MONOnitrate (24 HR) 30 MG TAB.ER.24H PO SCH (10:23)
[2017-01-02] MEDS: Venlafaxine XR (24 HR) 75 MG CAP.ER.24H PO SCH (10:23)
[2017-01-02] MEDS: aMILoride 5 MG TABLET PO SCH (10:23)
[2017-01-02] MEDS: Ranolazine 500 MG TAB.ER.12H PO SCH (10:23)
[2017-01-02] MEDS: Levofloxacin 750 MG/150 ML 750 MG/150 ML BAG IVPB SCH (10:25)
[2017-01-02] MEDS ORDERED: Piperacillin/Tazobactam 3.375 GM in 0.9 % Sodium Chloride Mini Bag 100 ML IVPB SCH (16:00)
== END 2017-01-02 11:12 | disposition home or self-care (01) | DRG 871 ==
LOC: EMEROO 23:22 → 3ANU 23:22
PROVIDERS: ADMIT Family Medicine; ATTEND Registered Nurse

== ENCOUNTER 2017-04-18 14:52 | Inpatient (IN) ==
[2017-04-18 17:26] LABS: Basophils # 0.1 K/mcL (0.0-0.2); Basophils % 0.7 %; Eosinophils # 0.3 K/mcL (0.0-0.6); Eosinophils % 2.7 %; Hematocrit 33.1 % (37.5-50.1); Hemoglobin 11.1 g/dL (12.9-16.9); Immature Granulocytes % 0.9 % (0-4); Lymphocytes # 1.6 K/mcL (0.6-4.6); Lymphocytes % 16.7 %; Mean Corpuscular HGB Conc 33.5 g/dL (31.6-35.5); Mean Corpuscular Hemoglobin 30.9 pg (28.0-33.3); Mean Corpuscular Volume 92.2 fL (83.0-100.0); Monocytes # 1.5 K/mcL (0.0-1.3); Monocytes % 15.6 %; Neutrophils # 6.1 K/mcL (1.6-8.9); Platelet Count 193 K/mcL (140-400); Red Blood Count 3.59 M/mcL (4.19-5.50); Segmented Neutrophils % 63.4 %
[2017-04-18 17:46] LABS: Troponin I 0.03 ng/mL (< 0.04)
--- NOTE | 2017-04-18 18:00 | Emergency Department Note ---
Disposition Clinical Impression: Hyponatremia, REJI (acute kidney injury) Disposition: Home, Self-Care Condition: Good Referrals: Amari Alcantara DO [Primary Care Provider] - Time of Disposition: 22:14 General Adult HPI - General Chief complaint: ED Weakness Stated complaint: Sodium is low Time Seen by Provider: 04/18/17 15:16 Source: patient, family Limitations: no limitations - History of Present Illness HPI Narrative: Dale Ames, 86M, PMH CKD stage 3, CHF, usually taking Lasix 40mg BID, presents with persistent hyponatremia lowest lab of 121 3. Due to his only mild improvement from 121 to 123 in the last few days, he was instructed to proceed to the ED for possible admission for evaluation of hypervolemic hyponatremia. He endorses generalized weakness, lower extremity swelling, without ataxis/seizures, or orthopnea. He denies chest pain or shortness of breath. Pain Scale: 0 - Related Data Home Medications Medication Instructions Recorded Confirmed Aspirin Enteric Coated [Aspirin EC] 81 mg PO DAILY 06/27/15 04/18/17 Atorvastatin Calcium [Lipitor] 20 mg PO HS 06/27/15 04/18/17 Levothyroxine [Synthroid] 50 mcg PO QAM 06/27/15 04/18/17 Montelukast [Singulair] 10 mg PO DAILY 06/27/15 04/18/17 Ranolazine [Ranexa] 500 mg PO BID 06/27/15 04/18/17 Temazepam [Restoril] 30 mg PO HS 06/27/15 04/18/17 Venlafaxine HCl [Venlafaxine HCl 75 mg PO DAILY 06/27/15 04/18/17 ER] Calcitriol [Rocaltrol] 0.25 mcg PO DAILY 04/18/16 04/18/17 Oxygen 2 l NS HS 04/18/16 04/18/17 aMILoride [Midamor] 5 mg PO DAILY 04/18/16 04/18/17 Fluticasone/Vilanterol [Breo 1 puff IH DAILY 10/29/16 04/18/17 Ellipta 100-25 Mcg INH] Albuterol Sulfate [Proair Hfa] 2 puff IH Q4H PRN 04/18/17 04/18/17 Bumetanide 2 mg PO BID 04/18/17 04/18/17 Potassium Chloride 40 meq PO BID 04/18/17 04/18/17 Previous Rx's Medication Instructions Recorded Metoprolol XL (24 HR) Succ [Toprol 100 mg PO DAILY tab.er.24h 04/20/16 Xl] Ipratropium/Albuterol Neb [Duoneb] 3 ml IH Q6HR #120 inhsol 01/02/17 Allergies Allergy/AdvReac Type Severity Reaction Status Date / Time rivaroxaban [From Xarelto] AdvReac See Verified 04/18/17 17:47 Comments All systems ED: reviewed and negative except as stated. 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 Absent: calf tenderness Course Course Narrative: Per HPI: Dale Ames, 86M, PMH CKD stage 3, CHF, usually taking Lasix 40mg BID , presents with persistent hyponatremia lowest lab of 121 04/11. Due to his only mild improvement from 121 to 123 in the last few days, he was instructed to proceed to the ED for possible admission for evaluation of hypervolemic hyponatremia. He endorses generalized weakness, lower extremity swelling, without ataxis/seizures, or orthopnea. He denies chest pain or shortness of breath. Today's sodium is 124, potassium of 5.0, BUN 49, Creat 1.68 (baseline). Urine Osmolality today is 329, Urine sodium 19.8. Mild pitting edema, no respiratory distress. CXR shows cardiomegaly, chronic appearing interstitial densities. BNP elevated, chronic. Clinically he may be volume overloaded and benefit from management inpatient of hypervolemic hyponatremia with Nephrology consult. Spoke to Dr. Garcia, Grocery Carrier on-call, who also recommends admission for controlled correction of sodium and volume status. Vital Signs Temperature 97.7 F 04/18/17 14:54 Pulse Rate 0 04/18/17 14:54 Respiratory Rate 16 04/18/17 14:54 Blood Pressure 125/73 04/18/17 14:54 O2 Sat by Pulse Oximetry 97 04/18/17 14:54 Temperature 97.7 F 04/18/17 14:54 Pulse Rate 62 04/18/17 21:07 Respiratory Rate 16 04/18/17 21:07 Blood Pressure 116/67 04/18/17 21:07 O2 Sat by Pulse Oximetry 97 04/18/17 21:07 Oxygen Delivery Oxygen Delivery Room Air Medical Decision Making - Medical Records Medical records reviewed: Yes I reviewed the patient's medical records. - Lab Data Lab results reviewed: Yes I reviewed the patient's lab results. Result diagrams: 04/18/17 17:00 04/18/17 17:00 Lab Results 04/18/17 04/18/17 04/18/17 Range/Units 17:00 17:00 17:00 WBC 9.7 (4.3-11.1) K/mcL RBC 3.59 L (4.19-5.50) M/mcL Hgb 11.1 L (12.9-16.9) g/dL Hct 33.1 L (37.5-50.1) % MCV 92.2 (83.0-100.0) fL MCH 30.9 (28.0-33.3) pg MCHC 33.5 (31.6-35.5) g/dL RDW 15.0 H (11.5-14.5) % Plt Count 193 (140-400) K/mcL MPV 10.0 (9.4-12.4) fL Immature Gran % 0.9 (0-4) % Seg Neutrophils % 63.4 % Lymphocytes % 16.7 % Monocytes % 15.6 % Eosinophils % 2.7 % Basophils % 0.7 % Neutrophils # 6.1 (1.6-8.9) K/mcL Lymphocytes # 1.6 (0.6-4.6) K/mcL Monocytes # 1.5 H (0.0-1.3) K/mcL Eosinophils # 0.3 (0.0-0.6) K/mcL Basophils # 0.1 (0.0-0.2) K/mcL Sodium 124 L (136-145) mEq/L Potassium 5.0 (3.5-5.1) mEq/L Chloride 91 L (98-107) mEq/L Carbon Dioxide 23 (23-29) mEq/L BUN 49 H (8-23) mg/dL Creatinine 1.68 H (0.70-1.30) mg/dL Est GFR ( Amer) 47 L (> 60) Est GFR (Non-Af Amer) 39 L (> 60) BUN/Creatinine Ratio 29 H (6-26) Glucose 95 (70-105) mg/dL Serum Osmolality (280-300) mOsm/kg Calculated Osmolality 271 L (280-300) Calcium 9.1 (8.6-10.3) mg/dL Magnesium 2.2 (1.6-2.6) mg/dL Total Bilirubin 1.2 H (0.3-1.0) mg/dL AST 27 (13-39) Units/L ALT 15 (7-52) Units/L Alkaline Phosphatase 104 (34-104) Units/L Troponin I 0.03 (< 0.04) ng/mL B-Natriuretic Peptide 2069 H (Less than 100) pg/mL Serum Total Protein 7.1 (6.4-8.9) g/dL Albumin 3.9 (3.5-5.7) g/dL Globulin 3.2 (2.4-3.5) g/dL Albumin/Globulin Ratio 1.2 (1.1-2.2) Urine Color (Yellow) Urine Clarity (Clear) Urine pH (5.0-8.0) pH Units Ur Specific [place] (1.010-1.025) Urine Protein (Neg-Trace) mg/dL Urine Glucose (UA) (Normal) mg/dL Urine Ketones (Negative) mg/dL Urine Blood (Negative) Urine Nitrite (Negative) Urine Bilirubin (Negative) Urine Urobilinogen (Normal) mg/dL Ur Leukocyte Esterase (Negative) Ur Culture Indicated? (NO) Urine Osmolality (300-1090) mOsm/kg Urine Sodium mEq/L 04/18/17 04/18/17 04/18/17 Range/Units 18:14 19:05 19:13 WBC (4.3-11.1) K/mcL RBC (4.19-5.50) M/mcL Hgb (12.9-16.9) g/dL Hct (37.5-50.1) % MCV (83.0-100.0) fL MCH (28.0-33.3) pg MCHC (31.6-35.5) g/dL RDW (11.5-14.5) % Plt Count (140-400) K/mcL MPV (9.4-12.4) fL Immature Gran % (0-4) % Seg Neutrophils % % Lymphocytes % % Monocytes % % Eosinophils % % Basophils % % Neutrophils # (1.6-8.9) K/mcL Lymphocytes # (0.6-4.6) K/mcL Monocytes # (0.0-1.3) K/mcL Eosinophils # (0.0-0.6) K/mcL Basophils # (0.0-0.2) K/mcL Sodium (136-145) mEq/L Potassium (3.5-5.1) mEq/L Chloride (98-107) mEq/L Carbon Dioxide (23-29) mEq/L BUN (8-23) mg/dL Creatinine (0.70-1.30) mg/dL Est GFR ( Amer) (> 60) Est GFR (Non-Af Amer) (> 60) BUN/Creatinine Ratio (6-26) Glucose (70-105) mg/dL Serum Osmolality 282 (280-300) mOsm/kg Calculated Osmolality (280-300) Calcium (8.6-10.3) mg/dL Magnesium (1.6-2.6) mg/dL Total Bilirubin (0.3-1.0) mg/dL AST (13-39) Units/L ALT (7-52) Units/L Alkaline Phosphatase (34-104) Units/L Troponin I (< 0.04) ng/mL B-Natriuretic Peptide (Less than 100) pg/mL Serum Total Protein (6.4-8.9) g/dL Albumin (3.5-5.7) g/dL Globulin (2.4-3.5) g/dL Albumin/Globulin Ratio (1.1-2.2) Urine Color Yellow (Yellow) Urine Clarity Clear (Clear) Urine pH 6.0 (5.0-8.0) pH Units Ur Specific [place] 1.014 (1.010-1.025) Urine Protein Negative (Neg-Trace) mg/dL Urine Glucose (UA) Normal (Normal) mg/dL Urine Ketones Negative (Negative) mg/dL Urine Blood Negative (Negative) Urine Nitrite Negative (Negative) Urine Bilirubin Negative (Negative) Urine Urobilinogen Normal (Normal) mg/dL Ur Leukocyte Esterase Negative (Negative) Ur Culture Indicated? NO (NO) Urine Osmolality (300-1090) mOsm/kg Urine Sodium 19.8 mEq/L 04/18/17 Range/Units 19:13 WBC (4.3-11.1) K/mcL RBC (4.19-5.50) M/mcL Hgb (12.9-16.9) g/dL Hct (37.5-50.1) % MCV (83.0-100.0) fL MCH (28.0-33.3) pg MCHC (31.6-35.5) g/dL RDW (11.5-14.5) % Plt Count (140-400) K/mcL MPV (9.4-12.4) fL Immature Gran % (0-4) % Seg Neutrophils % % Lymphocytes % % Monocytes % % Eosinophils % % Basophils % % Neutrophils # (1.6-8.9) K/mcL Lymphocytes # (0.6-4.6) K/mcL Monocytes # (0.0-1.3) K/mcL Eosinophils # (0.0-0.6) K/mcL Basophils # (0.0-0.2) K/mcL Sodium (136-145) mEq/L Potassium (3.5-5.1) mEq/L Chloride (98-107) mEq/L Carbon Dioxide (23-29) mEq/L BUN (8-23) mg/dL Creatinine (0.70-1.30) mg/dL Est GFR ( Amer) (> 60) Est GFR (Non-Af Amer) (> 60) BUN/Creatinine Ratio (6-26) Glucose (70-105) mg/dL Serum Osmolality (280-300) mOsm/kg Calculated Osmolality (280-300) Calcium (8.6-10.3) mg/dL Magnesium (1.6-2.6) mg/dL Total Bilirubin (0.3-1.0) mg/dL AST (13-39) Units/L ALT (7-52) Units/L Alkaline Phosphatase (34-104) Units/L Troponin I (< 0.04) ng/mL B-Natriuretic Peptide (Less than 100) pg/mL Serum Total Protein (6.4-8.9) g/dL Albumin (3.5-5.7) g/dL Globulin (2.4-3.5) g/dL Albumin/Globulin Ratio (1.1-2.2) Urine Color (Yellow) Urine Clarity (Clear) Urine pH (5.0-8.0) pH Units Ur Specific [place] (1.010-1.025) Urine Protein (Neg-Trace) mg/dL Urine Glucose (UA) (Normal) mg/dL Urine Ketones (Negative) mg/dL Urine Blood (Negative) Urine Nitrite (Negative) Urine Bilirubin (Negative) Urine Urobilinogen (Normal) mg/dL Ur Leukocyte Esterase (Negative) Ur Culture Indicated? (NO) Urine Osmolality 329 (300-1090) mOsm/kg Urine Sodium mEq/L - Radiology Data Radiology results reviewed: Yes I reviewed the patient's radiology results. Chest X-Ray 04/18/17 15:04 IMPRESSION: 1. Cardiomegaly. 2. Calcific atherosclerosis aorta. 3. Chronic appearing coarse interstitial densities predominate parahilar regions and lung bases, typical of sequela from smoking or other previous infectious/inflammatory process. D/ / Stalin Mead / Satlin Mead Interpreting Provider: Stalin Mead - EKG Data EKG #1 EKG attestation: Yes I reviewed and interpreted this EKG. EKG results narrative: ECG obtained 1507. Shows atrial fib, no st elevation or depression, normal axis Attestation Statement - Attestation Attestation: I, Franklyn Ramos DO, examined this patient [id number] and my medical decision-making was reviewed with Johnson Cedeno PGY-1, Resident Physician. I agree with the documented findings, disposition and treatment plan as described except to the extent set forth below. Please see my progress notes for details. 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 Patient was changed from Lasix to Bumex over the last week. Given checking his sodiums at home and following him closely. Patient denies any trauma or injury. Denies any fevers or chills. Denies any nausea vomiting or diarrhea. Denies any chest pain shortness of breath headache or vision change. Patient has had generalized malaise. Physical exam is unremarkable. Lungs are clear heart is regular abdomen is soft nontender nondistended. Patient has no signs of significant pitting edema at this point. Exam better without any acute shortness of breath respiratory distress. Vital signs reviewed and are stable. Labs from previous evaluation reviewed. Chemistry panel CBC and urine electrolytes were ordered at this time. Disposition of indeterminate workup is completed. Physical exam is otherwise unremarkable. Patient denies any other complaints except for the generalized malaise and weakness. See detailed documentation of physical exam, medical intervention, medical decision-making and disposition in the resident physician' s note. No critical care provider this patient's treatment course of this time. 2200 BNP is elevated laconic at this time. Patient's symptoms have been controlled. Patient has decided to be admitted to the hospital for the hyponatremia. Consultation placed out to the on-call brood hatchery manager. Recommendations also for admission. No other acute critical issues with this time. Hospitalist was contacted for admission process to be completed.
[2017-04-18 18:15] LABS: Albumin 3.9 g/dL (3.5-5.7); Albumin/Globulin Ratio 1.2 (1.1-2.2); Bilirubin,Total 1.2 mg/dL (0.3-1.0); Calcium 9.1 mg/dL (8.6-10.3); Globulin 3.2 g/dL (2.4-3.5); Magnesium 2.2 mg/dL (1.6-2.6); Total Protein 7.1 g/dL (6.4-8.9)
[2017-04-18 19:34] LABS: Bilirubin,Urine Negative (Negative); Blood,Urine Negative (Negative); Clarity,Urine Clear (Clear); Color,Urine Yellow (Yellow); Glucose,Urine (UA) Normal (Normal); Ketones,Urine Negative (Negative); Leukocyte Esterase,Urine Negative (Negative); Nitrite,Urine Negative (Negative); Protein,Urine Negative (Neg-Trace); Specific Gravity,Urine 1.014 (1.010-1.025); Urobilinogen,Urine Normal (Normal)
[2017-04-19] MEDS ORDERED: Acetaminophen 325 MG TABLET PO PRN (03:43)
[2017-04-19] MEDS ORDERED: Naloxone 0.4 MG/ML INJ IVP PRN (03:43)
--- NOTE | 2017-04-19 04:26 | Internal Med History&Physical ---
Date of Encounter: 04/19/17 Time of Encounter: 02:00 Assessment and Plan (1) Hyponatremia Current visit: Yes Status: Acute Patient has hyponatremia, which seems chronic as patient has hyponatremia on old chart. Patient has signs of fluid overload and history of CHF. Patient said he drinks lots of water. - We will place patient on regular diet and fluid restriction - Closely follow up sodium level, goal of correction is not more than 8 mEq over 24 hours (2) Chronic a-fib Current visit: No Status: Acute Heart rate is well controlled. Patient is not on any anti-coagulation, probably due to frequent fall. (3) Chronic kidney disease (CKD) Current visit: No Status: Acute Patient has a stable creatinine level at baseline Qualifiers: Chronic kidney disease stage: stage 3 (moderate) Qualified Code(s): N18.3 - Chronic kidney disease, stage 3 (moderate) (4) DVT prophylaxis Current visit: No Status: Acute Place patient on EPCD. No anticoagulation because patient has recent fall and bruise on right arm. (5) COPD (chronic obstructive pulmonary disease) Current visit: No Status: Chronic Stable. No wheezing. Continue home medications Qualifiers: COPD type: unspecified COPD Qualified Code(s): J44.9 - Chronic obstructive pulmonary disease, unspecified (6) Congestive heart failure Current visit: No Status: Chronic Patient has signs of mild fluid overload. Patient has a chronic elevated BNP. - Place patient on fluid restriction as described above - Continue home diuretics - Recent echo shows LVEF 55% Qualifiers: Qualified Code(s): I50.9 - Heart failure, unspecified Internal Medicine - H&P: HPI Chief complaint: Weakness Admitted From: Home Plans for Post Hospital Care: Home History of present illness: Mr. Ames is a 86 year old male with history of stage III CKD, COPD, CAD S/P CABG, colon cancer, hypertension, presented to ER for weakness for about 5 days. Patient was found hyponatremia by PCP since 03/14/17, and failed outpatient treatment. Patient is said he has good appetite and eating well. Patient also drink a lot of water. Patient denies nausea, vomiting, chest pain. Patient denies history of seizure. Patient feels generalized weakness otherwise no further complaints. He should was admitted for hyponatremia. Past Med Surg Social Fam HX - Past Medical History Medical history: atrial fibrillation, cancer, CHF, COPD, coronary artery disease , hyperlipidemia, hypertension, renal disease, valvular heart disease, other Psychiatric history: no psych history - Past Surgical History Surgical History: coronary bypass (CABG) - Social History Smoking Status: Never smoker Smokeless Tobacco Status: No Alcohol use: none Drug use: none - Family History Mother Living Status: Hx Family Cardiac Disorders: Yes (HTN) Hx Family Cancer: Yes Hx Family Neurologic Disorders: Yes (cerebral hemorrhage) Internal Medicine - H&P: Meds Aspirin Enteric Coated [Aspirin EC] 81 mg PO DAILY 06/27/15 [History] Atorvastatin Calcium [Lipitor] 20 mg PO HS 06/27/15 [History] Levothyroxine [Synthroid] 50 mcg PO QAM 06/27/15 [History] Montelukast [Singulair] 10 mg PO DAILY 06/27/15 [History] Ranolazine [Ranexa] 500 mg PO BID 06/27/15 [History] Temazepam [Restoril] 30 mg PO HS 06/27/15 [History] Venlafaxine HCl [Venlafaxine HCl ER] 75 mg PO DAILY 06/27/15 [History] Calcitriol [Rocaltrol] 0.25 mcg PO DAILY 04/18/16 [History] Oxygen 2 l NS HS 04/18/16 [History] aMILoride [Midamor] 5 mg PO DAILY 04/18/16 [History] Metoprolol XL (24 HR) Succ [Toprol Xl] 100 mg PO DAILY tab.er.24h 04/20/16 [Rx] Fluticasone/Vilanterol [Breo Ellipta 100-25 Mcg INH] 1 puff IH DAILY 10/29/16 [ History] Ipratropium/Albuterol Neb [Duoneb] 3 ml IH Q6HR #120 inhsol 01/02/17 [Rx] Albuterol Sulfate [Proair Hfa] 2 puff IH Q4H PRN 04/18/17 [History] Bumetanide 2 mg PO BID 04/18/17 [History] Potassium Chloride 40 meq PO BID 04/18/17 [History] 3 Allergy/AdvReac Type Severity Reaction Status Date / Time rivaroxaban [From Xarelto] AdvReac See Verified 04/18/17 17:47 Comments All Systems PM: A 10-system review of systems was performed and is negative for pertinent findings except as documented above in the HPI. - Constitutional Vitals: Temp Pulse Resp BP Pulse Ox 97.8 F 58 16 111/64 99 04/19/17 00:01 04/19/17 00:01 04/19/17 00:01 04/19/17 00:01 04/18/17 22:35 General appearance: Present: A&O X 3, no acute distress, answers questions appropriately - Head Head exam: Present: atraumatic, normocephalic - Eye Eye exam: Present: PERRL, conjuntiva pink, sclera anicteric Pupils: Present: PERRL - Neck Neck exam general surgery: Present: supple, trachea midline. Absent: lymphadenopathy - Respiratory Respiratory exam: Present: CTAB. Absent: accessory muscle use, rales, rhonchi, wheezes - Cardiovascular Cardiovascular exam: Present: RRR, +S1, +S2, systolic murmur. Absent: diastolic murmur, gallop, rubs - GI/Abdominal GI/Abdominal exam: Present: normal bowel sounds, soft, no peritoneal signs. Absent: distended, tenderness - Extremities Exam Extremities exam: Present: pedal edema (Mild pedal edema bilaterally), warm, radial pulses palpable and symmetrical. Absent: calf tenderness, cyanotic - Neurological Exam Neurological exam: Present: CN II-XII intact, oriented X3, no focal deficits. Absent: pronater drift, facial droop, speech deficit - Skin Skin exam: Present: dry, intact Internal Med - H&P Results - Labs CBC & Chem 7: 04/18/17 17:00 04/18/17 17:00
[2017-04-19] MEDS: Ipratropium/Albuterol Neb 3 ML IH SCH ×4 (05:13→22:10)
[2017-04-19 06:18] LABS: Basophils % 0.5 %; Eosinophils # 0.2 K/mcL (0.0-0.6); Eosinophils % 2.3 %; Hematocrit 31.4 % (37.5-50.1); Hemoglobin 10.5 g/dL (12.9-16.9); Immature Granulocytes % 0.7 % (0-4); Lymphocytes # 1.4 K/mcL (0.6-4.6); Lymphocytes % 18.2 %; Mean Corpuscular HGB Conc 33.4 g/dL (31.6-35.5); Mean Corpuscular Hemoglobin 31.1 pg (28.0-33.3); Mean Corpuscular Volume 92.9 fL (83.0-100.0); Mean Platelet Volume 9.8 fL (9.4-12.4); Monocytes % 13.7 %; Neutrophils # 4.8 K/mcL (1.6-8.9); Platelet Count 162 K/mcL (140-400); Red Blood Count 3.38 M/mcL (4.19-5.50); Red Cell Distribution Width 15.2 % (11.5-14.5); Segmented Neutrophils % 64.6 %
[2017-04-19 06:35] LABS: Magnesium 2.1 mg/dL (1.6-2.6); Potassium 4.7 mEq/L (3.5-5.1)
[2017-04-19] MEDS ORDERED: Bumetanide 1 MG TABLET PO SCH (09:00)
[2017-04-19] MEDS ORDERED: aMILoride 5 MG TABLET PO SCH (09:00)
[2017-04-19] MEDS ORDERED: (Fluticasone/Vilanterol [Breo Ellipta 100-25 Mcg Inh]) IH SCH (09:00)
[2017-04-19] MEDS: Aspirin Enteric Coated 81 MG Tablet PO SCH (09:58)
[2017-04-19] MEDS: Ranolazine 500 MG TAB.ER.12H PO SCH ×2 (09:58→20:18)
[2017-04-19] MEDS: Metoprolol XL (24 HR) Succ 50 MG TAB.ER.24H PO SCH (09:58)
[2017-04-19] MEDS: Venlafaxine XR (24 HR) 75 MG CAP.ER.24H PO SCH (09:59)
--- NOTE | 2017-04-19 16:29 | Internal Med Progress Note ---
Date of Encounter: 04/19/17 Time of Encounter: 11:30 - Assessment and plan (1) Hyponatremia Current Visit: Yes Status: Acute Assessment and plan: does have moderate hyponatremia Na @ 124 Improved to 126 this morning Reviewed Urine Na and Osmolality looks more like diuresis related hyponatremia held Bumex cont close monitoring Nephro consulted repeat Na now (2) Chronic a-fib Current Visit: No Status: Acute Assessment and plan: rate controlled with Metoprolol on ASA for anti coag (3) Diastolic CHF, chronic Current Visit: Yes Status: Acute Assessment and plan: Does not look in exacerbation Reviewed 2 D Echo from 01/22 showed LVEF 55%, Diastolic dysfunction Held Bumex today due o hyponatremia resumed all other home meds (4) Chronic kidney disease (CKD) Current Visit: No Status: Acute Assessment and plan: stable Cr Qualifiers: Chronic kidney disease stage: stage 3 (moderate) Qualified Code(s): N18.3 - Chronic kidney disease, stage 3 (moderate) (5) DVT prophylaxis Current Visit: No Status: Acute Assessment and plan: on SQ Heparin (6) COPD (chronic obstructive pulmonary disease) Current Visit: No Status: Chronic Assessment and plan: Not in exacerbation Resumed home regimen Qualifiers: COPD type: unspecified COPD Qualified Code(s): J44.9 - Chronic obstructive pulmonary disease, unspecified - Subjective Interval history: Mr. Ames is a 86 year old male with history of stage III CKD, COPD, CAD S/P CABG, colon cancer, hypertension, presented to ER for weakness for about 5 days. Patient was found hyponatremia by PCP since 03/14/17, and failed outpatient treatment. Pt was admitted here for hyponatremia. He denied any CP / SOB. Denied any pedal edema. Feels little better today. - Constitutional Vitals: Temp Pulse Resp BP Pulse Ox 97.8 F 68 17 120/70 97 04/19/17 16:10 04/19/17 16:10 04/19/17 16:10 04/19/17 16:10 04/19/17 16:10 General appearance: Present: A&O X 3, no acute distress, answers questions appropriately - Head Head exam: Present: atraumatic, normal inspection - Neck Neck exam general surgery: Present: supple - Respiratory Respiratory exam: Present: decreased breath sounds. Absent: rales, respiratory distress, rhonchi, wheezes - Cardiovascular Cardiovascular exam: Present: RRR, +S1, +S2. Absent: tachycardia - GI/Abdominal GI/Abdominal exam: Present: normal bowel sounds, soft. Absent: rebound, rigid, tenderness - Extremities Exam Extremities exam: Absent: calf tenderness, pedal edema, tenderness - Back Exam Back exam: Absent: CVA tenderness (L), CVA tenderness (R) - Neurological Exam Neurological exam: Present: alert, oriented X3 - Psychiatric Psychiatric exam: Present: normal affect, normal mood Internal Medicine: Result - Labs CBC & Chem 7: 04/19/17 05:37 04/19/17 05:37 Labs: Short CBC 04/19/17 Range/Units 05:37 WBC 7.4 (4.3-11.1) K/mcL Hgb 10.5 L (12.9-16.9) g/dL Hct 31.4 L (37.5-50.1) % Plt Count 162 (140-400) K/mcL Neutrophils # 4.8 (1.6-8.9) K/mcL BMP 04/19/17 05:37 Sodium 126 L Potassium 4.7 Chloride 93 L Carbon Dioxide 26 BUN 47 H Creatinine 1.72 H Glucose 89 Calcium 9.0 - VTE Documentation of Mechanical Device: Graduated compression elastic hosiery Consult Discharge Plan - Plan Referrals: Amari Alcantara DO [Primary Care Provider] -
--- NOTE | 2017-04-19 16:32 | Electrocardiograph Report ---
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
--- NOTE | 2017-04-19 18:20 | Nephrology Consult Note ---
Date of Encounter: 04/19/17 Time of Encounter: 12:00 Assessment and Plan (1) Hyponatremia Status: Acute Hyponatremia in the setting of diuretics and fluid consumption Agree with holding diuretics: bumex and amiloride Notable, serum osmolality actually WNL. Urine osmolality elevated due to diuretics but low urine sodium TSH, cortisol and uric acid already ordered Can liberalize sodium in diet for now Agree with fluid restriction (2) CKD (chronic kidney disease) stage 3, GFR 30-59 ml/min Status: Acute Stable at baseline in the 30s History of Present Illness - Reason for Consult Consult date: 04/19/17 hyponatremia Requesting physician: Kevin Carlson - History of Present Illness 86 y o male with PMH of HTN, COPD, CAD s/p CABGand stage 3 CKD admitted with worsening generalized weakness along with persistent hyponatremia noted in labs from last month. On presentation sodium noted at 124 but was previously 131 (03/14) and 121, 123 (04/11 and 04/14 respectively). He denies any N/V/D. He takes bumex 2mg bid along with amiloride and apparently drinks lots of fluids. Past Med Surg Social Fam HX - Past Medical History Medical history: atrial fibrillation, cancer, CHF, COPD, coronary artery disease , hyperlipidemia, hypertension, renal disease, valvular heart disease, other Psychiatric history: no psych history - Past Surgical History Surgical History: coronary bypass (CABG) - Social History Smoking Status: Never smoker Smokeless Tobacco Status: No Alcohol use: none Drug use: none - Family History Mother Living Status: Hx Family Cardiac Disorders: Yes (HTN) Hx Family Cancer: Yes Hx Family Neurologic Disorders: Yes (cerebral hemorrhage) Medications and Allergies Aspirin Enteric Coated [Aspirin EC] 81 mg PO DAILY 06/27/15 [History] Atorvastatin Calcium [Lipitor] 20 mg PO HS 06/27/15 [History] Levothyroxine [Synthroid] 50 mcg PO QAM 06/27/15 [History] Montelukast [Singulair] 10 mg PO DAILY 06/27/15 [History] Ranolazine [Ranexa] 500 mg PO BID 06/27/15 [History] Temazepam [Restoril] 30 mg PO HS 06/27/15 [History] Venlafaxine HCl [Venlafaxine HCl ER] 75 mg PO DAILY 06/27/15 [History] Calcitriol [Rocaltrol] 0.25 mcg PO DAILY 04/18/16 [History] Oxygen 2 l NS HS 04/18/16 [History] aMILoride [Midamor] 5 mg PO DAILY 04/18/16 [History] Metoprolol XL (24 HR) Succ [Toprol Xl] 100 mg PO DAILY tab.er.24h 04/20/16 [Rx] Fluticasone/Vilanterol [Breo Ellipta 100-25 Mcg INH] 1 puff IH DAILY 10/29/16 [ History] Ipratropium/Albuterol Neb [Duoneb] 3 ml IH Q6HR #120 inhsol 01/02/17 [Rx] Albuterol Sulfate [Proair Hfa] 2 puff IH Q4H PRN 04/18/17 [History] Bumetanide [Bumex] 1 mg PO BID #60 tablet 04/20/17 [Rx] Potassium Chloride 20 meq PO BID #0 04/20/17 [Rx] 3 Allergy/AdvReac Type Severity Reaction Status Date / Time rivaroxaban [From Xarelto] AdvReac See Verified 04/18/17 17:47 Comments Review of Systems All Systems: reviewed and no additional remarkable complaints except as stated ( 10 systems reviewed with pertinert positives/negatives in HPI) Exam - Vital Signs Vital signs: Initial Vital Signs Temp Pulse Resp BP Pulse Ox 97.7 F 0 16 125/73 97 04/18/17 14:54 04/18/17 14:54 04/18/17 14:54 04/18/17 14:54 04/18/17 14:54 Vital Signs - Last 8 Hours Temp Pulse Resp BP Pulse Ox 04/19/17 16:10 97.8 F 68 17 120/70 97 04/19/17 15:44 18 95 04/19/17 11:27 98.2 F 64 18 128/72 100 Intake and Output 04/19/17 04/19/17 04/19/17 07:59 15:59 23:59 Intake Total 480 / 480 480 / 480 Output Total 180 / 330 630 / 630 340 / 340 Balance 300 / 150 -150 / -150 -340 / -340 Intake: Oral 480 / 480 480 / 480 Output: Urine 180 / 330 630 / 630 340 / 340 Other: Meal Lunch Percent of Meal Consumed 80% Stool Size Moderate Stool Color Brown # Voids 1 2 - General Appearance General appearance: frail EENT: ATNC, mucous membranes moist Neck: no JVD, supple Respiratory: clear Cardiology: no edema, normal S1, normal S2 Gastrointestinal: no tenderness, no guarding Integumentary: warm and dry Neurologic: no focal deficit Musculoskeletal: no deformities Psychiatric: mood/affect appropriate Results - Lab Results 04/20/17 03:25 04/20/17 03:25 Most recent lab results Calcium 9.0 mg/dL (8.6-10.3) 04/19/17 05:37 Magnesium 2.1 mg/dL (1.6-2.6) 04/19/17 05:37 Urine Sodium 19.8 mEq/L 04/18/17 19:13 Consult Discharge Plan - Plan Instructions: Bumetanide (By mouth), Chronic Kidney Disease (DC), Hyponatremia (DC) Referrals: Alexander Lindsey DO [Partnered Physician] - Amari Alcantara DO [Primary Care Provider] - (web request sent on 04/20/17) Prescriptions: Bumetanide [Bumex] 1 mg PO BID #60 tablet
[2017-04-19] MEDS ORDERED: Temazepam 15 MG CAPSULE PO SCH (21:00)
[2017-04-19] MEDS: Budesonide/Formoterol 80/4.5 MDI IH SCH (22:09)
[2017-04-20] MEDS: Ipratropium/Albuterol Neb 3 ML IH SCH ×2 (03:50→10:35)
[2017-04-20 04:16] LABS: Basophils % 0.5 %; Eosinophils # 0.2 K/mcL (0.0-0.6); Eosinophils % 3.1 %; Hematocrit 31.3 % (37.5-50.1); Hemoglobin 10.2 g/dL (12.9-16.9); Immature Granulocytes % 0.8 % (0-4); Lymphocytes # 1.2 K/mcL (0.6-4.6); Lymphocytes % 15.2 %; Mean Corpuscular HGB Conc 32.6 g/dL (31.6-35.5); Mean Corpuscular Hemoglobin 30.2 pg (28.0-33.3); Mean Corpuscular Volume 92.6 fL (83.0-100.0); Mean Platelet Volume 9.5 fL (9.4-12.4); Monocytes % 12.9 %; Neutrophils # 5.3 K/mcL (1.6-8.9); Nucleated Red Blood Cells 0.4 /100 WBC (0); Platelet Count 164 K/mcL (140-400); Red Blood Count 3.38 M/mcL (4.19-5.50); Red Cell Distribution Width 15.2 % (11.5-14.5); Segmented Neutrophils % 67.5 %
[2017-04-20 04:38] LABS: Calcium 8.9 mg/dL (8.6-10.3)
[2017-04-20 04:48] LABS: Thyroid Stimulating Hormone 5.398 mcIU/mL (0.340-5.600)
[2017-04-20] MEDS: Metoprolol XL (24 HR) Succ 50 MG TAB.ER.24H PO SCH (07:46)
[2017-04-20] MEDS: Venlafaxine XR (24 HR) 75 MG CAP.ER.24H PO SCH (07:47)
[2017-04-20] MEDS: Aspirin Enteric Coated 81 MG Tablet PO SCH (07:47)
[2017-04-20] MEDS: Ranolazine 500 MG TAB.ER.12H PO SCH (07:47)
--- NOTE | 2017-04-20 09:14 | Internal Med Progress Note ---
Date of Encounter: 04/20/17 Time of Encounter: 09:12 - Assessment and plan (1) Hyponatremia Current Visit: Yes Status: Acute Assessment and plan: does have moderate hyponatremia Na @ 124 Improved to 126 this morning Reviewed Urine Na and Osmolality looks more like diuresis related hyponatremia held Bumex cont close monitoring Nephro consulted repeat Na now (2) CKD (chronic kidney disease) stage 3, GFR 30-59 ml/min Current Visit: Yes Status: Acute (3) Diastolic CHF, chronic Current Visit: Yes Status: Acute Assessment and plan: Does not look in exacerbation Reviewed 2 D Echo from 01/22 showed LVEF 55%, Diastolic dysfunction Held Bumex today due o hyponatremia resumed all other home meds - Subjective Interval history: Mr. Ames is a 86 year old male with history of stage III CKD, COPD, CAD S/P CABG, colon cancer, hypertension, presented to ER for weakness for about 5 days. Patient was found hyponatremia by PCP since 03/14/17, and failed outpatient treatment. Pt was admitted here for hyponatremia. He denied any CP / SOB. Denied any pedal edema. Feels little better today. - Constitutional Vitals: Temp Pulse Resp BP Pulse Ox 97.7 F 63 16 127/72 92 04/20/17 06:53 04/20/17 06:53 04/20/17 06:53 04/20/17 06:53 04/20/17 06:53 General appearance: Present: A&O X 3, no acute distress, answers questions appropriately Internal Medicine: Result - Labs CBC & Chem 7: 04/20/17 03:25 04/20/17 03:25 Labs: Short CBC 04/20/17 Range/Units 03:25 WBC 7.9 (4.3-11.1) K/mcL Hgb 10.2 L (12.9-16.9) g/dL Hct 31.3 L (37.5-50.1) % Plt Count 164 (140-400) K/mcL Neutrophils # 5.3 (1.6-8.9) K/mcL BMP 04/19/17 04/20/17 16:39 03:25 Sodium 127 L 130 L Potassium 4.0 Chloride 97 L Carbon Dioxide 24 BUN 47 H Creatinine 1.72 H Glucose 104 Calcium 8.9 - VTE Documentation of Mechanical Device: Intermittent pneumatic compression device Consult Discharge Plan - Plan Referrals: Amari Alcantara DO [Primary Care Provider] -
[2017-04-20] MEDS: Budesonide/Formoterol 80/4.5 MDI IH SCH (10:35)
[2017-04-20 12:05] VITALS: BP 118/65
--- NOTE | 2017-04-20 13:47 | Discharge Summary ---
- NOTES TO OUTPATIENT PROVIDER Notes to Outpatient Provider: Please start taking Bumex 1mg PO BID. Check weight daily, if you gain more than 2lbs, please take one extra dose Bumex. Also go for BMP on Monday and f/u with Manager Baby Date of Encounter: 04/20/17 Time of Encounter: 13:43 - Discharge Diagnosis (1) Hyponatremia Priority: Primary Status: Acute (2) CKD (chronic kidney disease) stage 3, GFR 30-59 ml/min Priority: Primary Status: Acute (3) Diastolic CHF, chronic Priority: Secondary Status: Acute Hospital course: Mr. Ames is a 86 year old male with history of stage III CKD, COPD, CAD S/P CABG, colon cancer, hypertension, presented to ER for weakness for about 5 days. Patient was found hyponatremia by PCP since 03/14/17, and failed outpatient treatment. Pt was admitted here for hyponatremia. His hyponatremia looks more like diuresis related hyponatremia. We held his Bumex and Amiloride and his Na started improving slowly. Today @ 130. Pt symptoms improved and he feels like he is back to baseline. Denied any CP / SOB. At this point Nephro and I suggested the pt to start taking bumex 1mg PO BID only and go for f/u BMP in 4 days and f/u with Nephro as an out pt. - Time Spent with Patient Total time spent providing and/or coordinating discharge services: - Discharge Medications Prescriptions: Bumetanide [Bumex] 1 mg PO BID #60 tablet Home Medications: Aspirin Enteric Coated [Aspirin EC] 81 mg PO DAILY 06/27/15 [History] Atorvastatin Calcium [Lipitor] 20 mg PO HS 06/27/15 [History] Levothyroxine [Synthroid] 50 mcg PO QAM 06/27/15 [History] Montelukast [Singulair] 10 mg PO DAILY 06/27/15 [History] Ranolazine [Ranexa] 500 mg PO BID 06/27/15 [History] Temazepam [Restoril] 30 mg PO HS 06/27/15 [History] Venlafaxine HCl [Venlafaxine HCl ER] 75 mg PO DAILY 06/27/15 [History] Calcitriol [Rocaltrol] 0.25 mcg PO DAILY 04/18/16 [History] Oxygen 2 l NS HS 04/18/16 [History] aMILoride [Midamor] 5 mg PO DAILY 04/18/16 [History] Metoprolol XL (24 HR) Succ [Toprol Xl] 100 mg PO DAILY tab.er.24h 04/20/16 [Rx] Fluticasone/Vilanterol [Breo Ellipta 100-25 Mcg INH] 1 puff IH DAILY 10/29/16 [ History] Ipratropium/Albuterol Neb [Duoneb] 3 ml IH Q6HR #120 inhsol 01/02/17 [Rx] Albuterol Sulfate [Proair Hfa] 2 puff IH Q4H PRN 04/18/17 [History] Bumetanide [Bumex] 1 mg PO BID #60 tablet 04/20/17 [Rx] Potassium Chloride 20 meq PO BID #0 04/20/17 [Rx] Allergies/Adverse Reactions: 3 Allergy/AdvReac Type Severity Reaction Status Date / Time rivaroxaban [From Xarelto] AdvReac See Verified 04/18/17 17:47 Comments Date of admission: 04/19/17 00:43 Primary care physician: mAari Alcantara Consults: 04/19/17 16:27 Consult to Nephrology [CONS] Routine Consulting Provider: Kidney Kianna/FLACO/BILL/VAISHALI Reason for Consult: Hyponatremia Time Notified: 16:27 Call Completed: Yes - Constitutional Vitals: Temp Pulse Resp BP Pulse Ox 97.9 F 66 16 118/65 98 04/20/17 11:59 04/20/17 11:59 04/20/17 11:59 04/20/17 11:59 04/20/17 11:59 General appearance: Present: A&O X 3, no acute distress, answers questions appropriately - Head Head exam: Present: atraumatic, normal inspection - Neck Neck exam general surgery: Present: supple - Respiratory Respiratory exam: Present: decreased breath sounds. Absent: rales, respiratory distress, rhonchi, wheezes - Cardiovascular Cardiovascular exam: Present: RRR, +S1, +S2. Absent: tachycardia - GI/Abdominal GI/Abdominal exam: Present: normal bowel sounds, soft. Absent: rebound, rigid, tenderness - Extremities Exam Extremities exam: Absent: calf tenderness, pedal edema, tenderness - Back Exam Back exam: Absent: CVA tenderness (L), CVA tenderness (R) - Neurological Exam Neurological exam: Present: alert, oriented X3 - Psychiatric Psychiatric exam: Present: normal affect, normal mood - Patient Status Disposition: Home, Self-Care Condition: Good Overall status at discharge: patient is back to baseline - Discharge Instructions Follow Up With: Amari Alcantara DO [Primary Care Provider] - (web request sent on 04/20/17) Alexander Lindsey DO [Partnered Physician] - - Diet and Activity Activity: increase activity as tolerated Diet: low salt diet - VTE Documentation of Mechanical Device: Intermittent pneumatic compression device
--- NOTE | 2017-04-20 19:16 | Nephrology Progress Note ---
Date of Encounter: 04/20/17 Time of Encounter: 13:00 - Assessment and Plan (1) Hyponatremia Status: Acute Sodium improved at 130 which is almost baseline Continue increased sodium in diet Continue to limit fluids intake to under 2 liters a day (2) CKD (chronic kidney disease) stage 3, GFR 30-59 ml/min Status: Acute baseline GFR in the 30s Subjective Interval history: Pt seen and examined with no new complaints. Objective - Vital Signs Vital signs: Vital Signs Temp Pulse Resp BP Pulse Ox 04/20/17 11:59 97.9 F 66 16 118/65 98 04/20/17 10:35 10 95 04/20/17 06:53 97.7 F 63 16 127/72 92 04/20/17 04:42 97.7 F 59 16 96/53 92 04/20/17 03:50 16 93 04/20/17 01:03 98.7 F 75 17 110/60 92 04/19/17 22:09 16 96 04/19/17 21:53 98.2 F 71 17 105/57 92 Intake and Output 04/20/17 04/20/17 04/20/17 07:59 15:59 23:59 Intake Total 240 / 240 Output Total 400 / 400 180 / 180 Balance -400 / -400 60 / 60 Intake: Oral 240 / 240 Output: Urine 400 / 400 180 / 180 Other: Meal Breakfast Percent of Meal Consumed 100% # Bowel Movements 1 Weight 71 kg 71 kg Patient Weight 04/20/17 23:59 Weight 71 kg - General Appearance General appearance: Present: frail EENT: Present: ATNC Neck: Present: no JVD, supple Respiratory: Present: clear Additional Comments: good areation ant bilat Cardiology: Present: no edema, normal S1, normal S2 Gastrointestinal: Present: no tenderness, no guarding Integumentary: Present: warm and dry Neurologic: Present: no focal deficit Musculoskeletal: Present: no deformities Psychiatric: Present: mood/affect appropriate - Lab 04/20/17 03:25 04/20/17 03:25 Most recent lab results Calcium 8.9 mg/dL (8.6-10.3) 04/20/17 03:25 Magnesium 2.1 mg/dL (1.6-2.6) 04/19/17 05:37 Urine Sodium 19.8 mEq/L 04/18/17 19:13 - VTE Documentation of Mechanical Device: Intermittent pneumatic compression device Consult Discharge Plan - Plan Instructions: Bumetanide (By mouth), Chronic Kidney Disease (DC), Hyponatremia (DC) Referrals: Alexander Lindsey DO [Partnered Physician] - Amari Alcantara DO [Primary Care Provider] - (web request sent on 04/20/17) Prescriptions: Bumetanide [Bumex] 1 mg PO BID #60 tablet
== END 2017-04-20 14:25 | disposition home or self-care (01) | DRG 641 ==
LOC: 2ANU 14:52 → EMEROO 14:52 → 2ANU 22:20
PROVIDERS: ADMIT Internal Medicine Cardiovascular Disease; ATTEND Family Medicine

== ENCOUNTER 2017-05-29 15:11 | Inpatient (IN) ==
[2017-05-29] MEDS ORDERED: Lidocaine -MPF 2% 5 ML VIAL INFILT ONE (16:17)
[2017-05-29] MEDS ORDERED: *HR* FentaNYL (PF) 100 MCG/2 ML VIAL IVP ONE (16:17)
--- NOTE | 2017-05-29 17:30 | Emergency Department Note ---
Disposition Clinical Impression: Compression fracture Intertrochanteric fracture of right hip Qualifiers: Encounter type: initial encounter Fracture type: closed Fracture alignment: displaced Qualified Code(s): S72.141A - Displaced intertrochanteric fracture of right femur, initial encounter for closed fracture Disposition: Admitted As Inpatient Condition: Fair Instructions: Fall Prevention for Older Adults (ED) Referrals: Amari Alcantara DO [Primary Care Provider] - Time of Disposition: 16:30 Fall HPI - General Chief Complaint: ED Fall Stated Complaint: Fall Time Seen by Provider: 05/29/17 15:16 Source: patient, family Mode of arrival: ambulatory Limitations: no limitations Nursing Notes Reviewed: Yes Vital Signs Reviewed: Yes - History of Present Illness HPI Narrative: 87-year-old male presents emergency Department after a fall at home. Patient states he was walking out of his house when he lost his balance falling backwards onto his buttocks and right hip. Patient was unable to ambulate since that time. He required EMS to lift him into the stretcher. Patient's right lower extremity is externally rotated however not obviously shortened. He has a significant amount of pitting edema in the bilateral lower extremities which is chronic. No other acute changes within the past few days. Patient was in his usual state of health prior to the fall. Patient takes aspirin but denies taking other anticoagulant medication. - Related Data Home Medications Medication Instructions Recorded Confirmed Aspirin Enteric Coated [Aspirin EC] 81 mg PO DAILY 06/27/15 04/18/17 Atorvastatin Calcium [Lipitor] 20 mg PO HS 06/27/15 04/18/17 Levothyroxine [Synthroid] 50 mcg PO QAM 06/27/15 04/18/17 Montelukast [Singulair] 10 mg PO DAILY 06/27/15 04/18/17 Ranolazine [Ranexa] 500 mg PO BID 06/27/15 04/18/17 Temazepam [Restoril] 30 mg PO HS 06/27/15 04/18/17 Venlafaxine HCl [Venlafaxine HCl 75 mg PO DAILY 06/27/15 04/18/17 ER] Calcitriol [Rocaltrol] 0.25 mcg PO DAILY 04/18/16 04/18/17 Oxygen 2 l NS HS 04/18/16 04/18/17 aMILoride [Midamor] 5 mg PO DAILY 04/18/16 04/18/17 Fluticasone/Vilanterol [Breo 1 puff IH DAILY 10/29/16 04/18/17 Ellipta 100-25 Mcg INH] Albuterol Sulfate [Proair Hfa] 2 puff IH Q4H PRN 04/18/17 04/18/17 Previous Rx's Medication Instructions Recorded Metoprolol XL (24 HR) Succ [Toprol 100 mg PO DAILY tab.er.24h 04/20/16 Xl] Ipratropium/Albuterol Neb [Duoneb] 3 ml IH Q6HR #120 inhsol 01/02/17 Bumetanide [Bumex] 1 mg PO BID #60 tablet 04/20/17 Potassium Chloride 20 meq PO BID #0 04/20/17 Ciprofloxacin [Cipro] 500 mg PO BID #14 tablet 05/22/17 metroNIDAZOLE [Flagyl] 500 mg PO TID #21 tablet 05/22/17 Allergies Allergy/AdvReac Type Severity Reaction Status Date / Time rivaroxaban [From Xarelto] AdvReac See Verified 05/22/17 11:11 Comments All systems ED: reviewed and negative except as stated. Review of Systems: As Per HPI Fall PMH - Past Medical History Medical history: Reports: atrial fibrillation, cancer, CHF, COPD, coronary artery disease, hyperlipidemia, hypertension, myocardial infarction, renal disease, valvular heart disease, other Surgical history: Reports: coronary bypass (CABG) Psychiatric history: Reports: no psych history - Social History Smoking Status: Never smoker Alcohol use: Reports: none Drug use: Reports: none Physical Exam General: Alert and in no acute distress Skin: Warm, dry, intact Head: Normocephalic and atraumatic Neck: Supple, trachea midline and no tenderness Cardiovascular: RRR, no murmur, normal perfusion Respiratory: CTAB, no wheezing, cough, or respiratory distress Musculoskeletal: Tenderness to palpation of the right hip. And with range of motion of the right extremity. +2 pitting edema in the bilateral lower extremities. Weak pulses palpated bilaterally in lower extremities however it is a difficult exam secondary to the edema. Bilateral lower extremities are otherwise warm and cap refill is at 3 seconds. GI: Soft, nontender, nondistended. Bowel sounds present Neuro: A&O to person, place, time and situation. No focal deficits noted on exam Psychiatric: cooperative and appropriate mood and affect. - General Limitations: altered mental status General appearance: alert Course Vital Signs Temperature 97.5 F L 05/29/17 15:13 Pulse Rate 64 05/29/17 15:13 Respiratory Rate 20 05/29/17 15:13 Blood Pressure 95/62 05/29/17 15:13 O2 Sat by Pulse Oximetry 97 05/29/17 15:13 Temperature 97.5 F L 05/29/17 15:13 Pulse Rate 87 05/29/17 17:27 Respiratory Rate 16 05/29/17 17:27 Blood Pressure 125/67 05/29/17 17:27 O2 Sat by Pulse Oximetry 96 05/29/17 17:27 Oxygen Delivery Oxygen Delivery Room Air Fall - MDM Narrative Medical decision making narrative: Initially patient described a mechanical fall and therefore laboratory evaluation was not obtained. Imaging returned with comminuted fracture of the right intertrochanteric hip as well as a vertebral body compression fracture. I spoke with both Dr. Galloway as well as Dr. Reyes regarding the patient's case and presentation and they agreed to see the patient in the hospital. Patient has history of chronic kidney disease and will be admitted to the hospitalist for further care and evaluation until surgery. - Medical Records Medical records reviewed: Yes I reviewed the patient's medical records. - Lab Data Lab results reviewed: Yes I reviewed the patient's lab results. - Radiology Data Radiology results reviewed: Yes I reviewed the patient's radiology results.
--- NOTE | 2017-05-29 17:39 | Emergency Department Note ---
Disposition Clinical Impression: Compression fracture Intertrochanteric fracture of right hip Qualifiers: Encounter type: initial encounter Fracture type: closed Fracture alignment: displaced Qualified Code(s): S72.141A - Displaced intertrochanteric fracture of right femur, initial encounter for closed fracture Disposition: Still a Patient General Adult HPI - General Chief complaint: ED Fall Stated complaint: Fall Time Seen by Provider: 05/29/17 15:16 Source: patient, family Mode of arrival: ambulatory Limitations: altered mental status - History of Present Illness Pain Scale: 7 - Related Data Home Medications Medication Instructions Recorded Confirmed Aspirin Enteric Coated [Aspirin EC] 81 mg PO DAILY 06/27/15 04/18/17 Atorvastatin Calcium [Lipitor] 20 mg PO HS 06/27/15 04/18/17 Levothyroxine [Synthroid] 50 mcg PO QAM 06/27/15 04/18/17 Montelukast [Singulair] 10 mg PO DAILY 06/27/15 04/18/17 Ranolazine [Ranexa] 500 mg PO BID 06/27/15 04/18/17 Temazepam [Restoril] 30 mg PO HS 06/27/15 04/18/17 Venlafaxine HCl [Venlafaxine HCl 75 mg PO DAILY 06/27/15 04/18/17 ER] Calcitriol [Rocaltrol] 0.25 mcg PO DAILY 04/18/16 04/18/17 Oxygen 2 l NS HS 04/18/16 04/18/17 aMILoride [Midamor] 5 mg PO DAILY 04/18/16 04/18/17 Fluticasone/Vilanterol [Breo 1 puff IH DAILY 10/29/16 04/18/17 Ellipta 100-25 Mcg INH] Albuterol Sulfate [Proair Hfa] 2 puff IH Q4H PRN 04/18/17 04/18/17 Previous Rx's Medication Instructions Recorded Metoprolol XL (24 HR) Succ [Toprol 100 mg PO DAILY tab.er.24h 04/20/16 Xl] Ipratropium/Albuterol Neb [Duoneb] 3 ml IH Q6HR #120 inhsol 01/02/17 Bumetanide [Bumex] 1 mg PO BID #60 tablet 04/20/17 Potassium Chloride 20 meq PO BID #0 03/15/18 Ciprofloxacin [Cipro] 500 mg PO BID #14 tablet 05/22/17 metroNIDAZOLE [Flagyl] 500 mg PO TID #21 tablet 05/22/17 Allergies Allergy/AdvReac Type Severity Reaction Status Date / Time rivaroxaban [From Xarelto] AdvReac See Verified 05/22/17 11:11 Comments Past Medical History - Past Medical History Medical history: Reports: atrial fibrillation, cancer, CHF, COPD, coronary artery disease, hyperlipidemia, hypertension, myocardial infarction, renal disease, valvular heart disease, other Surgical history: Reports: coronary bypass (CABG) Psychiatric history: Reports: no psych history - Social History Smoking Status: Never smoker Smokeless Tobacco Status: No Alcohol use: Reports: none Drug use: Reports: none Physical Exam - General Limitations: altered mental status General appearance: alert Course Vital Signs Temperature 97.5 F L 05/29/17 15:13 Pulse Rate 64 05/29/17 15:13 Respiratory Rate 20 05/29/17 15:13 Blood Pressure 95/62 05/29/17 15:13 O2 Sat by Pulse Oximetry 97 05/29/17 15:13 Temperature 97.5 F L 05/29/17 15:13 Pulse Rate 87 05/29/17 17:27 Respiratory Rate 16 05/29/17 17:27 Blood Pressure 125/67 05/29/17 17:27 O2 Sat by Pulse Oximetry 96 05/29/17 17:27 Oxygen Delivery Oxygen Delivery Room Air Procedures - Nerve Block Nerve Block 1 Consent Obtained: written consent Time Out Performed: Yes Local Anesthetic: lidocaine 2%, bupivacaine 0.5% Amount of anesthesia used (mL): 25 Side: right Nerve Blocks: femoral Procedure Successful: Yes Patient Tolerated Procedure: well, no complications Additional Comments: R fem nerve block Indication pain from hip fracture. Ultrasound guidance used, to identify the right femoral nerve, time out performed, written consent, US identified vessels and nerve was found lateral at just below the inguinal canalbefore arterial bifurcation, see images, 25 mL of 50/50 mix bupivacaine and lidocaine was injected around the nerve, to achieve anesthesia. Pt tolerated well no complicaitons . Dr Bates, Dr Gillis attending. Medical Decision Making - [facility] Narrative Medical decision making narrative: Ultrasound and procedure note only, please see resident/ROMA/attending note for history, ROS, physical exam, medical decision making and plan.
[2017-05-29 18:12] LABS: Basophils % 0.3 %; Calcium 8.6 mg/dL (8.6-10.3); Eosinophils # 0.1 K/mcL (0.0-0.6); Eosinophils % 0.7 %; Hematocrit 33.5 % (37.5-50.1); Hemoglobin 10.8 g/dL (12.9-16.9); Immature Granulocytes % 0.8 % (0-4); Lymphocytes # 1.1 K/mcL (0.6-4.6); Lymphocytes % 9.1 %; Mean Corpuscular HGB Conc 32.2 g/dL (31.6-35.5); Mean Corpuscular Hemoglobin 30.7 pg (28.0-33.3); Mean Corpuscular Volume 95.2 fL (83.0-100.0); Mean Platelet Volume 10.4 fL (9.4-12.4); Monocytes # 0.8 K/mcL (0.0-1.3); Monocytes % 6.9 %; Neutrophils # 9.7 K/mcL (1.6-8.9); Nucleated Red Blood Cells 0.2 /100 WBC (0); Platelet Count 181 K/mcL (140-400); Potassium 4.5 mEq/L (3.5-5.1); Red Blood Count 3.52 M/mcL (4.19-5.50); Red Cell Distribution Width 16.5 % (11.5-14.5); Segmented Neutrophils % 82.2 %
[2017-05-29 18:15] LABS: INR 1.7; Prothrombin Time 18.1 Seconds (9.4-12.1)
[2017-05-29 18:18] LABS: Activated Partial Thrombo Time 36.2 Seconds (26.0-36.0)
--- NOTE | 2017-05-29 18:38 | Internal Med History&Physical ---
Date of Encounter: 05/29/17 Time of Encounter: 18:30 Assessment and Plan (1) Intertrochanteric fracture of right hip Current visit: Yes Status: Acute Orthopedic surgeon was contacted , await for Dr Galloway to see the patient We will consult a crowd controller for preoperative evaluation due to history of CAD stents CABG and severe tricuspid regurgitation, moderate aortic regurgitation Qualifiers: Encounter type: initial encounter Fracture type: closed Fracture alignment: displaced Qualified Code(s): S72.141A - Displaced intertrochanteric fracture of right femur, initial encounter for closed fracture (2) Compression fracture Current visit: Yes Status: Acute L2 fracture, Dr Reyes was consulted (3) Essential hypertension Current visit: Yes Status: Chronic Continue home medication (4) COPD (chronic obstructive pulmonary disease) Current visit: Yes Status: Chronic No signs for exacerabtion, on 2 L nasal cannula at night Qualifiers: COPD type: unspecified COPD Qualified Code(s): J44.9 - Chronic obstructive pulmonary disease, unspecified (5) HLD (hyperlipidemia) Current visit: Yes Status: Chronic Continue home medication Qualifiers: Hyperlipidemia type: mixed hyperlipidemia Qualified Code(s): E78.2 - Mixed hyperlipidemia (6) CAD (coronary artery disease) Current visit: No Status: Chronic Qualifiers: Coronary Disease-Associated Artery/Lesion type: [place] artery [place] vs. transplanted heart: [place] heart Associated angina: without angina Qualified Code(s): I25.10 - Atherosclerotic heart disease of [place] coronary artery without angina pectoris (7) Chronic kidney disease (CKD) Current visit: Yes Status: Acute CK D stages 3, was bilateral leg edema we will consult a metal checker for hyponatremia and ,leg swelling Qualifiers: Chronic kidney disease stage: stage 3 (moderate) Qualified Code(s): N18.3 - Chronic kidney disease, stage 3 (moderate) (8) Diastolic CHF, chronic Current visit: Yes Status: Chronic Chronic diastolic dysfunction with severe tricuspid regurgitation and moderated aortic regurgitation Continue home [facility] Internal Medicine - H&P: HPI Chief complaint: hip pain Admitted From: Home Plans for Post Hospital Care: Home History of present illness: Mr. Ames is a 87 year old male who has history of CK D stages 3, CAD with stents placement s/p CABG, chronic leg swelling present to emergency room for right hip pain after fall. At 2 PM this afternoon, patient tried to get out of door, trapped and slipped from the steps. He landed backwards onto [place] and the lower back. Patient developed acute sharp pain to the right hip, 10 out of 10, constant, unable to get up, ambulance was called. Help to him to the gurney and is sent to the emergency room. Patient stated that the left right hip pain improved and currently 3 out of 10, but any movement makes it worse. He denies loss of consciousness, no other injury. He is alert oriented 3. In the emergency room CT L spine showed L2 fracture and the hip x-ray shows comminuted fracture of right femur, Ortho and Spine lsurgery both are called by ER physician. Patient is going to be admitted as inpatient for right hip fracture and L2 acute fracture Patient has a history of CK D stages 3, CAD stents and CABG . He has limited functional capacity, homebound. Patient is at increased risk for perioperative adverse cardiac events. We will consult cardiology for preop clearance and the nephrology for CK D management. Past Med Surg Social Fam HX - Past Medical History Medical history: atrial fibrillation, cancer, CHF, COPD, coronary artery disease , hyperlipidemia, hypertension, myocardial infarction, renal disease, valvular heart disease, other Psychiatric history: no psych history - Past Surgical History Surgical History: coronary bypass (CABG) - Social History Smoking Status: Never smoker Smokeless Tobacco Status: No Alcohol use: none Drug use: none - Family History Mother Living Status: Hx Family Cardiac Disorders: Yes (HTN) Hx Family Cancer: Yes Hx Family Neurologic Disorders: Yes (cerebral hemorrhage) Internal Medicine - H&P: Meds Aspirin Enteric Coated [Aspirin EC] 81 mg PO DAILY 06/27/15 [History] Atorvastatin Calcium [Lipitor] 20 mg PO HS 06/27/15 [History] Levothyroxine [Synthroid] 50 mcg PO QAM 06/27/15 [History] Montelukast [Singulair] 10 mg PO DAILY 06/27/15 [History] Ranolazine [Ranexa] 500 mg PO BID 06/27/15 [History] Temazepam [Restoril] 30 mg PO HS 06/27/15 [History] Venlafaxine HCl [Venlafaxine HCl ER] 75 mg PO DAILY 06/27/15 [History] Calcitriol [Rocaltrol] 0.25 mcg PO DAILY 03/13/17 [History] Oxygen 2 l NS HS 04/18/16 [History] aMILoride [Midamor] 5 mg PO DAILY 04/18/16 [History] Metoprolol XL (24 HR) Succ [Toprol Xl] 100 mg PO DAILY tab.er.24h 04/20/16 [Rx] Fluticasone/Vilanterol [Breo Ellipta 100-25 Mcg INH] 1 puff IH DAILY 10/29/16 [ History] Ipratropium/Albuterol Neb [Duoneb] 3 ml IH Q6HR #120 inhsol 01/02/17 [Rx] Albuterol Sulfate [Proair Hfa] 2 puff IH Q4H PRN 04/18/17 [History] Bumetanide [Bumex] 1 mg PO BID #60 tablet 04/20/17 [Rx] Potassium Chloride 20 meq PO BID #0 04/20/17 [Rx] Ciprofloxacin [Cipro] 500 mg PO BID #14 tablet 05/22/17 [Rx] metroNIDAZOLE [Flagyl] 500 mg PO TID #21 tablet 05/22/17 [Rx] 3 Allergy/AdvReac Type Severity Reaction Status Date / Time rivaroxaban [From Xarelto] AdvReac See Verified 05/22/17 11:11 Comments All Systems PM: Pertinent findings as documented above in the HPI. All other systems were reviewed and are negative - Constitutional Vitals: Temp Pulse Resp BP Pulse Ox 97.5 F L 87 16 125/67 96 05/29/17 15:13 05/29/17 17:27 05/29/17 17:27 05/29/17 17:27 05/29/17 17:27 General appearance: Present: cooperative, A&O X 3, pleasant Exam: CONSTITUTIONAL: Patient appears as an age appropriate male well developed, in no acute distress. EYES Clear sclerae, bilateral pupils are equal, reactive to light and accommodation. Extraocular movements are intact RESPIRATORY: No accessory muscle use, bilateral clear to auscultation, no wheezing, no crackles/rales. CARDIOVASCULAR: Regular heart rate, normal S1 and S2, no murmurs GASTROINTESTINAL: bowel sounds present, soft, no tenderness. No hepatosplenomegaly. No bilateral CVA tenderness MUSCULOSKELETAL: Joints in normal range of motion, no clubbing, no edema, no cyanosis. Bilateral peripheral pulses 2+ LYMPHATIC no lymphadenopathy in neck, groin and axilla bilaterally, no thyromegaly. NEUROLOGIC: CN II to XII are grossly intact, no focal neurological deficit. Deep tendon reflexes 2+ bilaterally. Normal light touch sensation to upper and lower extremity PSYCHIATRIC: Oriented x3, with good insight, mood is euthymic. No hallucinations or delusions. SKIN: Skin warm and dry, no rashes, no open wound. Internal Med - H&P Results - Labs CBC & Chem 7: 05/29/17 17:41 05/29/17 17:41 Labs: Short CBC 05/29/17 Range/Units 17:41 WBC 11.8 H (4.3-11.1) K/mcL Hgb 10.8 L (12.9-16.9) g/dL Hct 33.5 L (37.5-50.1) % Plt Count 181 (140-400) K/mcL Neutrophils # 9.7 H (1.6-8.9) K/mcL BMP 05/29/17 17:41 Sodium 129 L Potassium 4.5 Chloride 98 Carbon Dioxide 25 BUN 38 H Creatinine 1.99 H Glucose 133 H Calcium 8.6
[2017-05-29] MEDS ORDERED: Naloxone 0.4 MG/ML INJ IVP PRN (18:52)
[2017-05-29 19:59] LABS: Troponin I 0.03 ng/mL (< 0.04)
[2017-05-29] MEDS ORDERED: NON-FORMULARY MEDICATION 1 EACH EACH (Oxygen [Oxygen] 2 L) NS SCH (21:00)
[2017-05-29] MEDS ORDERED: Temazepam 15 MG CAPSULE PO SCH (21:00)
[2017-05-29] MEDS: Ipratropium/Albuterol Neb 3 ML IH SCH (21:43)
[2017-05-29] MEDS: Bumetanide 1 MG TABLET PO SCH (22:00)
[2017-05-29] MEDS: Ranolazine 500 MG TAB.ER.12H PO SCH (22:00)
[2017-05-29] MEDS: *HR* HYDROcodone/Acet 5/325 mg TABLET PO PRN (22:01)
[2017-05-30] MEDS: Ipratropium/Albuterol Neb 3 ML IH SCH ×4 (03:24→21:42)
[2017-05-30 04:24] LABS: Bilirubin,Urine Negative (Negative); Blood,Urine Negative (Negative); Clarity,Urine Clear (Clear); Color,Urine Dark Yellow (Yellow); Glucose,Urine (UA) Normal (Normal); Ketones,Urine Negative (Negative); Leukocyte Esterase,Urine Negative (Negative); Nitrite,Urine Negative (Negative); PH,Urine 5.5 pH Units (5.0-8.0); Protein,Urine Negative (Neg-Trace); Specific Gravity,Urine 1.017 (1.010-1.025); Urobilinogen,Urine Normal (Normal)
[2017-05-30 06:30] LABS: Basophils % 0.2 %; Eosinophils % 0.3 %; Hematocrit 30.2 % (37.5-50.1); Hemoglobin 9.7 g/dL (12.9-16.9); Immature Granulocytes % 0.7 % (0-4); Lymphocytes # 0.8 K/mcL (0.6-4.6); Lymphocytes % 8.6 %; Mean Corpuscular HGB Conc 32.1 g/dL (31.6-35.5); Mean Corpuscular Hemoglobin 29.9 pg (28.0-33.3); Mean Corpuscular Volume 93.2 fL (83.0-100.0); Mean Platelet Volume 9.6 fL (9.4-12.4); Monocytes # 0.7 K/mcL (0.0-1.3); Monocytes % 8.1 %; Neutrophils # 7.4 K/mcL (1.6-8.9); Platelet Count 163 K/mcL (140-400); Red Blood Count 3.24 M/mcL (4.19-5.50); Red Cell Distribution Width 16.8 % (11.5-14.5); Segmented Neutrophils % 82.1 %
[2017-05-30 06:53] LABS: Calcium 8.1 mg/dL (8.6-10.3); Chol/HDL Ratio 2.5 (0-4.9); Phosphorous 4.2 mg/dL (2.7-4.5); Potassium 4.9 mEq/L (3.5-5.1)
[2017-05-30] MEDS ORDERED: Venlafaxine XR (24 HR) 75 MG CAP.ER.24H PO SCH (09:00)
[2017-05-30] MEDS ORDERED: (Fluticasone/Vilanterol [Breo Ellipta 100-25 Mcg Inh]) IH SCH (09:00)
[2017-05-30] MEDS ORDERED: Aspirin Enteric Coated 81 MG Tablet PO SCH (09:00)
[2017-05-30] MEDS ORDERED: aMILoride 5 MG TABLET PO SCH (09:00)
[2017-05-30] MEDS ORDERED: Metoprolol XL (24 HR) Succ 50 MG TAB.ER.24H PO SCH (09:00)
[2017-05-30] MEDS: Bumetanide 1 MG TABLET PO SCH (09:18)
[2017-05-30] MEDS: Ranolazine 500 MG TAB.ER.12H PO SCH (09:29)
[2017-05-30] MEDS: *HR* HYDROcodone/Acet 5/325 mg TABLET PO PRN ×2 (09:29→17:06)
--- NOTE | 2017-05-30 09:32 | Internal Med Progress Note ---
Date of Encounter: 05/30/17 Time of Encounter: 09:30 - Assessment and plan (1) Intertrochanteric fracture of right hip Current Visit: Yes Status: Acute Assessment and plan: Patient is most likely to undergo a surgery today as per orthopedics Awaiting final clearance from cardiology. I personally discussed the case with cardiology nurse practitioner this morning Patient has a history of stable diastolic heart failure, stage III renal failure with acute exacerbation in this visit, history of COPD and hypertension along with hyperlipidemia. He also has anemia of chronic disease. Based on the revised cardiac risk index as per BRODY, he does at least have 2 points and bears a class III risk. He has a 2.4% risk of cardiac , nonfatal myocardial infarction and nonfatal cardiac arrest. He also poses a 3.6% perioperative risk of myocardial infarction, pulmonary edema, ventricular fibrillation, primary cardiac arrest and complete heart block. His last ejection fraction was roughly 55% in January 2017-as per the SENIOR PAINTER I would recommend no further testing at this point but will await final input from cardiology. I would like to hold his Bumex and amiloride this morning. I will continue his Ranexa, beta lisset, aspirin perioperatively. His mild troponin elevation and the lack of any chest pain, shortness of breath at this point, or for that matter prior to his fall is indicated of his acute renal failure in the setting of chronic kidney disease As far as his renal function is concerned I am hesitant to give him any fluids given his lower extremity edema. Nephrology is on consult-doubt any new interventions. We will avoid nephrotoxins and perioperatively monitor his CMP and CBC closely. Patient does have chronic anemia in the setting of renal failure and may need to be cautiously watched for hemoglobin dropped postoperatively. He is a moderate to high risk factor for MACE as mentioned above If these risks for adverse events were discussed with the patient and the patient's family who wish to proceed with the surgery should be done today. We will keep him nothing by mouth for now. Pain control is adequate Qualifiers: Encounter type: initial encounter Fracture type: closed Fracture alignment: displaced Qualified Code(s): S72.141A - Displaced intertrochanteric fracture of right femur, initial encounter for closed fracture (2) Chronic kidney disease (CKD) Current Visit: Yes Status: Acute Assessment and plan: Stage III renal failure with now acute to be worsening. Unclear etiology but most likely impaired oral intake and ongoing diuresis would be to blame. I will hold his Bumex for today as well as his amiloride and can resume it postoperatively he did I am hesitant to give him fluids because he still has lower extremity edema and in the past patient has had quick worsening towards pulmonary overload postoperatively Nephrology has been consulted and I will await their input. Qualifiers: Chronic kidney disease stage: stage 3 (moderate) Qualified Code(s): N18.3 - Chronic kidney disease, stage 3 (moderate) (3) Compression fracture Current Visit: Yes Status: Acute Assessment and plan: Acute and to vertebral body compression fracture with less than 30% compression. Pain control seems to be appropriate at this point. Orthopedics following. Likely nonoperative intervention (4) Diastolic CHF, chronic Current Visit: Yes Status: Chronic Assessment and plan: Chronic stable diastolic heart failure with no real exacerbation at this point. His BNP does seem to be elevated but is consistent with his prior levels. He is on 2 L of oxygen but does maintain it even at home while sleeping or lying flat Like mentioned above will hold his diuresis for today and started postoperatively. (5) Essential hypertension Current Visit: Yes Status: Chronic Assessment and plan: Blood pressure seems to be appropriate albeit on the lower side. I will watch it cautiously and like already mentioned will hold diuretics (6) [id number]-irlvliw renal failure Current Visit: No Status: Chronic Assessment and plan: Patient has stage IIIc Isaura at the baseline and now is acutely worsened. Most likely is a combination of dehydration with ongoing diuresis. I will hold his diuretics for now and observe the creatinine. Hesitant to start fluids given approximately edema and propensity to go into heart failure and his past area nephrology has been consulted and will await further inputs if any Qualifiers: Acute renal failure type: unspecified Chronic kidney disease stage: stage 4 (severe) Qualified Code(s): N17.9 - Acute kidney failure, unspecified; N18.4 - Chronic kidney disease, stage 4 (severe); N18.4 - Chronic kidney disease , stage 4 (severe); N18.4 - Chronic kidney disease, stage 4 (severe); N18.4 - Chronic kidney disease, stage 4 (severe) - Time Spent With Patient Total time spent is greater than 50% in coordination of care (as documented) at patient's floor/unit and/or counseling patient: Greater than 35 minutes (More than 50% of the time discussed in [id number] counseling with patient and family members) - Subjective Interval history: Patient states that his pain is right now about 5/10. Endorsed as sharp, present on the right hip associated with any movement. He denies any radiation of pain up or down his leg at this point. He denies any chest pain, shortness of breath. He is anxious to Get operated upon today. - Constitutional Vitals: Temp Pulse Resp BP Pulse Ox 98.3 F 75 18 106/65 98 05/30/17 06:28 05/30/17 06:28 05/30/17 06:28 05/30/17 06:28 05/30/17 06:28 General appearance: Present: cooperative, A&O X 3, pleasant Exam: GENERAL: Alert, moderate distress, cooperative EYES: PERRLA, EOMI EARS: External ears normal, canals clear OROPHARYNX: Lips, mucosa, and tongue normal. Teeth and gums normal. Oropharynx normal. NECK: No jugulovenous distention, No carotid bruits, Carotid pulse normal contour, Supple LUNGS: Lungs clear to auscultation, Good diaphragmatic excursion CARDIAC: Normal S1 and S2; no rubs, murmurs, or gallops ABDOMEN: Abdomen soft, non-tender, BS normal, No masses or organomegaly EXTREMITIES: 1+ pitting edema in bilateral lower extremities, right lower extremity externally rotated and shortened as compared to the left. NEURO: Gait not tested because of the fracture. Reflexes normal and symmetric. Sensation grossly intact, Cranial nerves II-XII intact PULSES: 2+ radial, 2+ carotid, 2+ dorsalis pedis Rest of the exam is non contributory Internal Medicine: Result - Labs CBC & Chem 7: 05/30/17 06:18 05/30/17 06:18 Labs: Short CBC 05/29/17 05/30/17 Range/Units 17:41 06:18 WBC 11.8 H 9.0 (4.3-11.1) K/mcL Hgb 10.8 L 9.7 L (12.9-16.9) g/dL Hct 33.5 L 30.2 L (37.5-50.1) % Plt Count 181 163 (140-400) K/mcL Neutrophils # 9.7 H 7.4 (1.6-8.9) K/mcL BMP 05/29/17 05/30/17 17:41 06:18 Sodium 129 L 131 L Potassium 4.5 4.9 Chloride 98 100 Carbon Dioxide 25 24 BUN 38 H 41 H Creatinine 1.99 H 2.04 H Glucose 133 H 119 H Calcium 8.6 8.1 L Cardiac Enzymes 05/29/17 05/30/17 05/30/17 Range/Units 17:41 00:47 06:18 Troponin I 0.03 0.04 H* 0.05 H* (< 0.04) ng/mL Urine 05/30/17 Range/Units 04:00 Urine Color Dark Yellow (Yellow) Urine Clarity Clear (Clear) Urine pH 5.5 (5.0-8.0) pH Units Ur Specific [place] 1.017 (1.010-1.025) Urine Protein Negative (Neg-Trace) mg/dL Urine Glucose (UA) Normal (Normal) mg/dL - ABG Interpretation ABG results: PT/INR, D-dimer PT 18.1 Seconds (9.4-12.1) H 05/29/17 17:41 - VTE Documentation of Mechanical Device: Intermittent pneumatic compression device Consult Discharge Plan - Plan Instructions: Fall Prevention for Older Adults (ED)
--- NOTE | 2017-05-30 10:20 | Cardiology Consult Note ---
<Nathan Nolan Jimena - Last Filed: 05/30/17 10:21> Date of Encounter: 05/30/17 Time of Encounter: 10:19 Assessment and Plan (1) Pre-operative cardiovascular examination Current Visit: Yes Status: Acute Pre-op risk stratification for hip surgery--right hip fx. Pt has known cardiac hx of CAD with PCI and CABG in remote past, diastolic CHF, moderate to severe pulmonary hypertension, A-Fib, moderate MR, severe TR, NSVT. TTE 01/2017 EF 55%, moderate-severe phtn, moderate MR, severe TR. Nuclear stress test 01/2015 negative for ischemia or infarct. No recent ischemic evaluation since 2014. Pt is unable to achieve 4 METS of activity due to joint pain, exertional dyspnea and fatigue. Pt reports dyspnea and LE edema are chronic and at baseline. Denies chest pain. Discussed with Dr. Murphy. Given his hx, age, and inability to achieve 4 METS of activity, he is high risk from a cardiac perspective. However, given acute hip fx, benefit of proceeding with surgery outweigh his high cardiac risk. Pt and family verbalize understanding of being high risk. No further cardiac testing is necessary prior to surgery. Anticipate sign off once seen and evaluate by Dr. Murphy. Would recommend continuing ASA, Statin, BB in the perioperative period. (2) A-fib Current Visit: Yes Status: Acute Known A-Fib, rate controlled on BB. Not anticoagulated due to hx of GI bleed. [id number] (Age, HTN, CAD). High CVA risk. Continue ASA only. Qualifiers: Atrial fibrillation type: unspecified Qualified Code(s): I48.91 - Unspecified atrial fibrillation (3) Diastolic CHF, chronic Current Visit: Yes Status: Chronic Known chronic diastolic CHF. Reports dyspnea and LE edema are at baseline. Lower extremity edema is dependent and most likely secondary to pulmonary hypertension. Agree with holding diuretics in setting of REJI on CKD. 2L fluid restriction, Na restriction, daily weights, I/Os. (4) Elevated troponin Current Visit: Yes Status: Acute Troponin 0.03, 0.04, 0.05--borderline in setting of REJI on CKD. Suspect demand ischemia, nondiagnostic for ACS. Pt denies chest pain. Echo 01/2017 EF 55%. (5) REJI (acute kidney injury) Current Visit: No Status: Acute Creatinine 2.04, REJI on CKD stage 3. Agree with holding diuretics. Nephrology on board. (6) CAD (coronary artery disease) Current Visit: Yes Status: Chronic Hx of PCI and CABG in remote past. Continue ASA, Statin, BB, Ranexa. Qualifiers: Coronary Disease-Associated Artery/Lesion type: habematolel artery [place] vs. transplanted heart: habematolel heart Associated angina: without angina Qualified Code(s): I25.10 - Atherosclerotic heart disease of habematolel coronary artery without angina pectoris Discussion w patient/family: The assessment and plan as outlined above was discussed with the patient and/or family members who expressed understanding and agreement. All questions were answered. Thank you for involving us in the care of your patient. Please call with any questions. I will discuss all the above with Dr. Murphy and make changes as necessary. History of Present Illness Consult date: 05/30/17 Requesting physician: Lance Brambila Consult reason: Pre-op risk stratification Chief complaint: right hip pain History of present illness: Mr. Ames is a 87 year old male with PMH of CKD stage 3, chronic anemia, diastolic CHF, moderate-severe pulmonary hypertension, PAF not anticoagulated because of history of GI bleed. He has moderate mitral regurgitation, severe tricuspid regurgitation, and history of nonsustained ventricular tachycardia as well as hypercholesterolemia. He tripped and fell yesterday resulting in a right hip fx, prompting ED evaluation. Cardiology consulted for pre-op risk stratification with surgery tentatively scheduled for this afternoon. Pt denies chest pain. He reports chronic exertional dyspnea and chronic LE edema, no worse from baseline. He is unable to achieve 4 METS of activity at home due to dyspnea, fatigue and joint pain. Prior CV testing: TTE 01/27/17: EF 55%, severely dilated left and right atria, mild-moderate AR, mild MR, severe TR, moderate [place], moderate-severe phtn est RVSP 54mmHg. Nuclear stress test 02/03/15: Gated EF 74%, fixed apical lateral defect suggestive of artifact. Perfusion imaging negative for ischemia or infarct. Past Med Surg Social Fam HX - Past Medical History Medical history: atrial fibrillation, cancer, CHF, COPD, coronary artery disease , hyperlipidemia, hypertension, myocardial infarction, renal disease, valvular heart disease, other Psychiatric history: no psych history - Past Surgical History Surgical History: coronary bypass (CABG) - Social History Smoking Status: Never smoker Smokeless Tobacco Status: No Alcohol use: none Drug use: none - Family History Mother Living Status: Hx Family Cardiac Disorders: Yes (HTN) Hx Family Cancer: Yes Hx Family Neurologic Disorders: Yes (cerebral hemorrhage) Brother Living Status: Cause of : throat cancer Hx Family Cancer: Yes (throat) Medications and Allergies Aspirin Enteric Coated [Aspirin EC] 81 mg PO DAILY 06/27/15 [History] Atorvastatin Calcium [Lipitor] 20 mg PO HS 06/27/15 [History] Levothyroxine [Synthroid] 50 mcg PO QAM 06/27/15 [History] Montelukast [Singulair] 10 mg PO DAILY 06/27/15 [History] Ranolazine [Ranexa] 500 mg PO BID 06/27/15 [History] Temazepam [Restoril] 30 mg PO HS 06/27/15 [History] Venlafaxine HCl [Venlafaxine HCl ER] 75 mg PO DAILY 06/27/15 [History] Calcitriol [Rocaltrol] 0.25 mcg PO DAILY 04/18/16 [History] Oxygen 2 l NS HS 04/18/16 [History] aMILoride [Midamor] 5 mg PO DAILY 04/18/16 [History] Metoprolol XL (24 HR) Succ [Toprol Xl] 100 mg PO DAILY tab.er.24h 04/20/16 [Rx] Fluticasone/Vilanterol [Breo Ellipta 100-25 Mcg INH] 1 puff IH DAILY 10/29/16 [ History] Ipratropium/Albuterol Neb [Duoneb] 3 ml IH Q6HR #120 inhsol 01/02/17 [Rx] Albuterol Sulfate [Proair Hfa] 2 puff IH Q4H PRN 04/18/17 [History] Bumetanide [Bumex] 1 mg PO BID #60 tablet 04/20/17 [Rx] Potassium Chloride 20 meq PO BID #0 04/20/17 [Rx] 3 Allergy/AdvReac Type Severity Reaction Status Date / Time rivaroxaban [From Xarelto] AdvReac See Verified 05/29/17 18:36 Comments All Systems Review: The remainder of the systems were reviewed and are negative - Cardiovascular Cardiovascular: as per HPI, dyspnea on exertion, leg edema - Respiratory Respiratory: dyspnea Physical Examination Vital Signs, Last 4 Hours Temp Pulse Resp BP Pulse Ox 05/30/17 06:28 98.3 F 75 18 106/65 98 Vital Signs Temp Pulse Resp BP Pulse Ox 05/30/17 06:28 98.3 F 75 18 106/65 98 05/30/17 04:05 98.3 F 80 17 102/58 100 05/30/17 03:25 16 97 05/30/17 00:21 98.3 F 81 19 107/70 96 05/29/17 21:43 16 96 05/29/17 21:06 97 05/29/17 19:01 97.4 F L 75 17 93/61 93 05/29/17 18:42 18 124/57 05/29/17 17:27 87 16 125/67 96 05/29/17 15:13 97.5 F L 64 20 95/62 97 Intake and Output 05/29/17 05/30/17 05/30/17 23:59 07:59 15:59 Output Total 200 / 200 Balance -200 / -200 Output: Urine 200 / 200 Other: # Voids 1 Blood Glucose* 112 General: Conversant, No Apparent Distress HEENT: Atraumatic, Normocephaly, Mucus Membranes Moist Neck: Normal carotid pulses Cardiac: Other (irregularly irregular, 2/6 murmur) Lungs: Normal Breath Sounds, No Wheeze, Rales, Rhonchi Neuro: Alert and responsive, No focal deficits noted Abdomen: Soft, Non-Tender Skin: No rashes noted on visualized skin Musculoskeletal: No Chest Wall Tenderness Extremities: No Clubbing, No Cyanosis, Other (1+ BLE edema) Results 05/30/17 06:18 05/30/17 06:18 Lab Results 05/29/17 05/29/17 05/29/17 17:41 17:41 17:41 WBC 11.8 H Hgb 10.8 L Hct 33.5 L Plt Count 181 INR 1.7 APTT 36.2 H Sodium 129 L Potassium 4.5 Chloride 98 Carbon Dioxide 25 BUN 38 H Creatinine 1.99 H Glucose 133 H Calcium 8.6 Magnesium Troponin I 0.03 B-Natriuretic Peptide 05/30/17 05/30/17 05/30/17 00:47 06:18 06:18 WBC 9.0 Hgb 9.7 L Hct 30.2 L Plt Count 163 INR APTT 37.2 H Sodium Potassium Chloride Carbon Dioxide BUN Creatinine Glucose Calcium Magnesium Troponin I 0.04 H* B-Natriuretic Peptide 05/30/17 05/30/17 05/30/17 06:18 06:18 06:18 WBC Hgb Hct Plt Count INR APTT Sodium 131 L Potassium 4.9 Chloride 100 Carbon Dioxide 24 BUN 41 H Creatinine 2.04 H Glucose 119 H Calcium 8.1 L Magnesium 2.0 Troponin I 0.05 H* B-Natriuretic Peptide 2459 H Short CBC 05/30/17 05/29/17 Range/Units 06:18 17:41 WBC 9.0 11.8 H (4.3-11.1) K/mcL Hgb 9.7 L 10.8 L (12.9-16.9) g/dL Hct 30.2 L 33.5 L (37.5-50.1) % Plt Count 163 181 (140-400) K/mcL Neutrophils # 7.4 9.7 H (1.6-8.9) K/mcL BMP 05/30/17 05/29/17 Range/Units 06:18 17:41 Sodium 131 L 129 L (136-145) mEq/L Potassium 4.9 4.5 (3.5-5.1) mEq/L Chloride 100 98 (98-107) mEq/L Carbon Dioxide 24 25 (23-29) mEq/L BUN 41 H 38 H (8-23) mg/dL Creatinine 2.04 H 1.99 H (0.70-1.30) mg/dL Glucose 119 H 133 H (70-105) mg/dL Calcium 8.1 L 8.6 (8.6-10.3) mg/dL Cardiac Enzymes 05/30/17 05/30/17 05/29/17 Range/Units 06:18 00:47 17:41 Troponin I 0.05 H* 0.04 H* 0.03 (< 0.04) ng/mL Urine 05/30/17 Range/Units 04:00 Urine Color Dark Yellow (Yellow) Urine Clarity Clear (Clear) Urine pH 5.5 (5.0-8.0) pH Units Ur Specific [place] 1.017 (1.010-1.025) Urine Protein Negative (Neg-Trace) mg/dL Urine Glucose (UA) Normal (Normal) mg/dL Impressions Chest X-Ray 05/29/17 15:34 IMPRESSION: Healing left 9th rib fracture. Patchy opacity in the right upper lobe may represent contusion versus atelectasis versus early pneumonia D/ / Jama Paul MD / Jama Paul MD Interpreting Provider: Jama Paul MD Cervical Spine CT 05/29/17 15:35 IMPRESSION: No acute abnormality of the cervical spine. D/ / 05/29/2017 16:32:32 Thelma Daniels MD / christin Interpreting Provider: Thelma Daniels MD Head CT 05/29/17 15:35 IMPRESSION: No acute intracranial abnormality. Findings most compatible with chronic small vessel disease. D/ / Lawrence Decker MD / Lawrence Decker MD Interpreting Provider: Lawrence Decker MD Hip X-Ray 05/29/17 15:35 IMPRESSION: Comminuted intratrochanteric fracture of the right femur. D/ / 05/29/2017 16:26:01 Davi Rosado / marti Interpreting Provider: Davi Rosado Lumbar Spine CT 05/29/17 15:35 IMPRESSION: Acute fracture involving the L2 vertebral body with less than 30% compression. No significant retropulsion of fracture fragments is identified. D/ / Davi Rosado / Davi Rosado Interpreting Provider: Davi Rosado Thoracic Spine CT 05/29/17 15:35 IMPRESSION: No acute osseous abnormality. Chronic T10 compression fracture with moderate, approximately 30%, loss of vertebral body height. No retropulsion of fracture fragments. Osteopenia. D/ / 05/29/2017 16:30:09 Thelma Daniels MD / jason Interpreting Provider: Thelma Daniels MD Active Medications Hydrocodone Bitart/Acetaminophen (Ivins 5-325 Mg) 1 tab PO Q6HR PRN PRN Reason: Moderate Pain Stop: 11/28/17 18:53 Last Admin: 05/30/17 09:29 Dose: 1 tab Albuterol Sulfate (Albuterol Inhaler) 2 puff IH Q4H PRN PRN Reason: Shortness Of Breath Stop: 11/28/17 18:48 Albuterol/Ipratropium (Duoneb) 3 ml IH [id number] DOMINGUEZ Stop: 11/28/17 22:01 Last Admin: 05/30/17 03:24 Dose: 3 ml Amiloride HCl (Midamor) 5 mg PO DAILY DOMINGUEZ Stop: 11/29/17 09:01 Last Admin: 05/30/17 09:30 Dose: Not Given Aspirin (Aspirin Ec) 81 mg PO DAILY DOMINGUEZ Stop: 11/29/17 09:01 Last Admin: 05/30/17 09:29 Dose: 81 mg Atorvastatin Calcium (Lipitor) 20 mg PO HS DOMINGUEZ Stop: 11/28/17 21:01 Last Admin: 05/29/17 22:00 Dose: 20 mg Bumetanide (Bumex) 1 mg PO BID DOMINGUEZ Stop: 11/28/17 21:01 Last Admin: 05/30/17 09:18 Dose: Not Given Calcitriol (Rocaltrol) 0.25 mcg PO DAILY DOMINGUEZ Stop: 11/29/17 09:01 Last Admin: 05/30/17 09:29 Dose: 0.25 mcg Levothyroxine Sodium (Synthroid) 50 mcg PO 0630 DOMINGUEZ Stop: 11/29/17 06:31 Last Admin: 05/30/17 06:24 Dose: 50 mcg Metoprolol Succinate (Toprol Xl) 100 mg PO DAILY DOMINGUEZ Stop: 11/29/17 09:01 Last Admin: 05/30/17 09:32 Dose: 100 mg Montelukast Sodium (Singulair) 10 mg PO QPM DOMINGUEZ Stop: 11/29/17 18:01 Naloxone HCl (Narcan) 0.4 mg IVP Q2MIN PRN PRN Reason: SEE COMMENTS Stop: 11/28/17 18:53 Pharmacy Profile Note (Patient Taking Own Medication) 0 each IH DAILY DOMINGUEZ Stop: 11/29/17 09:01 Last Admin: 05/30/17 09:19 Dose: Not Given Potassium Chloride (Potassium Chloride) 20 meq PO BID DOMINGUEZ Stop: 11/28/17 21:01 Last Admin: 05/30/17 09:19 Dose: Not Given Ranolazine (Ranexa) 500 mg PO BID DOMINGUEZ Stop: 11/28/17 21:01 Last Admin: 05/30/17 09:29 Dose: 500 mg Temazepam (Restoril) 30 mg PO HS DOMINGUEZ Stop: 11/28/17 21:01 Last Admin: 05/29/17 22:01 Dose: 30 mg Venlafaxine HCl (Effexor Xr) 75 mg PO DAILY DOMINGUEZ Stop: 11/29/17 09:01 Last Admin: 05/30/17 09:29 Dose: 75 mg - Imaging and Cardiology Stress Test: report reviewed Echo: report reviewed - EKG Interpretation EKG results cardiology: personally reviewed (A-Fib, RBBB), other (12 hr tele AVG HR 77, A-Fib.) Consult Discharge Plan - Plan Instructions: Fall Prevention for Older Adults (ED) Referrals: Amari Alcantara, [Primary Care Provider] - <Hebert Murphy - Last Filed: 05/30/17 11:11> Date of Encounter: 05/30/17 - Attending Attestation I have personally performed a face to face evaluation on this patient. I have reviewed and agree with the care plan. History and Exam by me shows: CC: Severe pain in right hip. Pt reports had a mechanical fall 05/29/17, landed on right side after a trip while walking, felt immediate pain in right hip, was unable to stand, Pt evaluated in ER, found to have right hip fracture, anticipates surgical repair. We are asked to evaluate for cardiovascular risk. Pt denies chest pain, pressure or shortness of breath associated with falling. He has extensive cardiac history, including diastolic CHF, moderate pulmonary hypertension, severe TR, moderate MR, previous lateral IA documented on stress imaging, with no reversible ischemia 01/20, and CAD post CABG. He is predominantly sedentary , due to arthalgia and fatique, but no chest pain with activity at present. PMHx: Reviewed PE: pt seen and examined, agree with findings as documented. IMP/Plan: 1. Right hip fracture: anticipate surgical intervention, pt is at high cardiovascular risk, however risk benefit ratio favors proceeding with planned surgical intervention due to morbidity of prolonged bedrest without surgical repair. Lengthy discussion with pt and family at bedside, questions answered, all in agreement to proceed with surgical repair right hip. 2. Stable class 1 angina at low levels of physical exertion 3. CAD: severe triple vessel CAD, post CABG 4. Pulmonary hypertension, stable continue to monitor 5. MR/TR, well compensated at present. Will follow with your perioperatively . Assessment and Plan Discussion w patient/family: The assessment and plan as outlined above was discussed with the patient and/or family members who expressed understanding and agreement. All questions were answered. Thank you for involving us in the care of your patient. Please call with any questions. History of Present Illness History of present illness: Mr. Ames is a 87 year old male All Systems Review: The remainder of the systems were reviewed and are negative Physical Examination Vital Signs, Last 4 Hours Resp Pulse Ox 05/30/17 10:58 18 97 Results 05/30/17 06:18 05/30/17 06:18 Lab Results 05/29/17 05/29/17 05/29/17 17:41 17:41 17:41 WBC 11.8 H Hgb 10.8 L Hct 33.5 L Plt Count 181 INR 1.7 APTT 36.2 H Sodium 129 L Potassium 4.5 Chloride 98 Carbon Dioxide 25 BUN 38 H Creatinine 1.99 H Glucose 133 H Calcium 8.6 Magnesium Troponin I 0.03 B-Natriuretic Peptide 05/30/17 05/30/17 05/30/17 00:47 06:18 06:18 WBC 9.0 Hgb 9.7 L Hct 30.2 L Plt Count 163 INR APTT 37.2 H Sodium Potassium Chloride Carbon Dioxide BUN Creatinine Glucose Calcium Magnesium Troponin I 0.04 H* B-Natriuretic Peptide 05/30/17 05/30/17 05/30/17 06:18 06:18 06:18 WBC Hgb Hct Plt Count INR APTT Sodium 131 L Potassium 4.9 Chloride 100 Carbon Dioxide 24 BUN 41 H Creatinine 2.04 H Glucose 119 H Calcium 8.1 L Magnesium 2.0 Troponin I 0.05 H* B-Natriuretic Peptide 2459 H
--- NOTE | 2017-05-30 10:54 | Orthopedic Consult Note ---
Date of Encounter: 05/30/17 Time of Encounter: 10:50 Assessment and Plan (1) Intertrochanteric fracture of right hip Current Visit: Yes Status: Acute The diagnosis and operative and non-operative treatment options were discussed with Dale and his family. For pain control and to enable him to get out of bed , the patient has elected to proceed with a right hip cephalomedullary nail. The risks and benefits of the procedure were fully explained in detail, including but not limited to the risk of infection, neurovascular injury, continued pain or stiffness, failure of surgery, reinjury, or need for additional surgery, DVT, PE, general risks of anesthesia and loss of limb or life. No guarantees were given or implied and all questions were answered. The patient understands all the risks and does wish to proceed with written consent. Plan for surgery today pending medical clearance. Spine consult obtained by hospitalist for L2 compression fracture. Qualifiers: Encounter type: initial encounter Fracture type: closed Fracture alignment: displaced Qualified Code(s): S72.141A - Displaced intertrochanteric fracture of right femur, initial encounter for closed fracture History of Present Illness HPI: Mr. Ames is a 87 year old male with a PMHx of CKD, CAD, chronic lower extremity edema who presented to the ER after a mechanical fall last evening. Slipped on the steps at home, fell backward onto his buttock and lower back. Patient complains of right hip and low back pain. He denies loss of consciousness or blacking out prior to the fall, no other injury. Denies numbness or tingling distally. Previously ambulated with a walker and is mostly homebound. Past Med Surg Social Fam HX - Past Medical History Medical history: atrial fibrillation, cancer, CHF, COPD, coronary artery disease , hyperlipidemia, hypertension, myocardial infarction, renal disease, valvular heart disease, other Psychiatric history: no psych history - Past Surgical History Surgical History: coronary bypass (CABG) - Social History Smoking Status: Never smoker Smokeless Tobacco Status: No Alcohol use: none Drug use: none - Family History Mother Living Status: Hx Family Cardiac Disorders: Yes (HTN) Hx Family Cancer: Yes Hx Family Neurologic Disorders: Yes (cerebral hemorrhage) Brother Living Status: Cause of : throat cancer Hx Family Cancer: Yes (throat) Medications and Allergies Aspirin Enteric Coated [Aspirin EC] 81 mg PO DAILY 06/27/15 [History] Atorvastatin Calcium [Lipitor] 20 mg PO HS 06/27/15 [History] Levothyroxine [Synthroid] 50 mcg PO QAM 06/27/15 [History] Montelukast [Singulair] 10 mg PO DAILY 06/27/15 [History] Ranolazine [Ranexa] 500 mg PO BID 06/27/15 [History] Temazepam [Restoril] 30 mg PO HS 06/27/15 [History] Venlafaxine HCl [Venlafaxine HCl ER] 75 mg PO DAILY 06/27/15 [History] Calcitriol [Rocaltrol] 0.25 mcg PO DAILY 04/18/16 [History] Oxygen 2 l NS HS 04/18/16 [History] aMILoride [Midamor] 5 mg PO DAILY 04/18/16 [History] Metoprolol XL (24 HR) Succ [Toprol Xl] 100 mg PO DAILY tab.er.24h 04/20/16 [Rx] Fluticasone/Vilanterol [Breo Ellipta 100-25 Mcg INH] 1 puff IH DAILY 10/29/16 [ History] Ipratropium/Albuterol Neb [Duoneb] 3 ml IH Q6HR #120 inhsol 01/02/17 [Rx] Albuterol Sulfate [Proair Hfa] 2 puff IH Q4H PRN 04/18/17 [History] Bumetanide [Bumex] 1 mg PO BID #60 tablet 04/20/17 [Rx] Potassium Chloride 20 meq PO BID #0 04/20/17 [Rx] 3 Allergy/AdvReac Type Severity Reaction Status Date / Time rivaroxaban [From Xarelto] AdvReac See Verified 05/29/17 18:36 Comments All Systems Reviewed: The remainder of the systems were reviewed and are negative Physical Exam - Constitutional Vitals: Temp Pulse Resp BP Pulse Ox 98.3 F 75 18 106/65 98 05/30/17 06:28 05/30/17 06:28 05/30/17 06:28 05/30/17 06:28 05/30/17 06:28 Exam: Constitutional -Vitals reviewed -The patient is well developed and well nourished. Psychiatric -The patient is fully alert and oriented x 3. Respiratory: -Respiratory effort normal Abdomen: -Soft abdomen -Non tender -Non distended: Left upper extremity: -No deformities. The overlying skin is intact. No obvious signs of acute trauma. -No tenderness to palpation throughout. -No significant pain with passive motion of the shoulder, elbow, wrist, and fingers within the limits of the bed. -Able to make an "OK" sign, cross the index and long fingers, and extend the thumb. -Sensation grossly intact to light touch throughout the median, radial, and ulnar distributions. -Radial pulse is present; Fingers have good capillary refill. Right upper extremity: -No deformities. The overlying skin is intact. No obvious signs of acute trauma. -No tenderness to palpation throughout. -No significant pain with passive motion of the shoulder, elbow, wrist, and fingers within the limits of the bed. -Able to make an "OK" sign, cross the index and long fingers, and extend the thumb. -Sensation grossly intact to light touch throughout the median, radial, and ulnar distributions. -Radial pulse is present; Fingers have good capillary refill. Left lower extremity: -No deformities. The overlying skin is intact. No obvious signs of acute trauma. Diffuse LE edema present -No tenderness to palpation throughout. -No pain with passive motion of the hip, knee, ankle, and toes within the limits of the bed. -No pain with axial loading of the thigh. -Able to dorsiflex and plantarflex the ankle and toes. -Sensation is grossly intact to light touch throughout the sural, saphenous, superficial peroneal, and deep peroneal distributions. -Toes have good capillary refill. Right lower extremity: -RLE short and ER -Pain with internal rotation of the hip -Diffuse LE edema -Able to dorsiflex and plantarflex the ankle and toes. -Sensation is grossly intact to light touch throughout the sural, saphenous, superficial peroneal, and deep peroneal distributions. -Toes have good capillary refill. Results - Labs Result Diagrams: 05/30/17 06:18 05/30/17 06:18 Labs: Abnormal lab results RBC 3.24 M/mcL (4.19-5.50) L 05/30/17 06:18 Hgb 9.7 g/dL (12.9-16.9) L 05/30/17 06:18 Hct 30.2 % (37.5-50.1) L 05/30/17 06:18 RDW 16.8 % (11.5-14.5) H 05/30/17 06:18 Nucleated RBCs/100 WBC 0.2 /100 WBC (0) H 05/29/17 17:41 PT 18.1 Seconds (9.4-12.1) H 05/29/17 17:41 APTT 37.2 Seconds (26.0-36.0) H 05/30/17 06:18 Sodium 131 mEq/L (136-145) L 05/30/17 06:18 BUN 41 mg/dL (8-23) H 05/30/17 06:18 Creatinine 2.04 mg/dL (0.70-1.30) H 05/30/17 06:18 Est GFR ( Amer) 38 (> 60) L 05/30/17 06:18 Est GFR (Non-Af Amer) 31 (> 60) L 05/30/17 06:18 Glucose 119 mg/dL (70-105) H 05/30/17 06:18 POC Glucose 112 mg/dL (70-99) H 05/30/17 06:59 Calcium 8.1 mg/dL (8.6-10.3) L 05/30/17 06:18 Troponin I 0.05 ng/mL (< 0.04) H* 05/30/17 06:18 B-Natriuretic Peptide 2459 pg/mL (Less than 100) H 05/30/17 06:18 HDL Cholesterol 24 mg/dL (40-59) L 05/30/17 06:18 H & H 05/29/17 05/30/17 Range/Units 17:41 06:18 Hgb 10.8 L 9.7 L (12.9-16.9) g/dL Hct 33.5 L 30.2 L (37.5-50.1) % All other labs normal. - Diagnostic results Hip x-ray: report reviewed, image reviewed (Shows comminuted right intertrochanteric fracture with subtrochanteric extension) Consult Discharge Plan - Plan Instructions: Fall Prevention for Older Adults (ED) Referrals: Amari Alcantara DO [Primary Care Provider] -
--- NOTE | 2017-05-30 15:59 | Spine Progress Note ---
Date of Encounter: 05/30/17 Time of Encounter: 15:57 - Assessment and Plan (1) Vertebral compression fracture Current Visit: Yes Status: Acute On exam he is lying in bed in some distress secondary to right hip pain. Afebrile vital signs stable. His right lower extremity is shortened and externally rotated. He has pain with internal and external rotation of the hip/ leg. He is neurovascularly intact with regard to his bilateral lower extremities. He has minimal tenderness to palpation of the distal lumbar spinous processes. He has no clonus. CT scan of the lumbar spine reveals a vertebral compression fracture at L2 with some mild loss of height no significant retrocrural some of fragments into the canal. Impression: 1) vertebral compression fracture L2 2) osteopenia Plan: At this time the patient does not have significant complaints of back pain. He may be distracted secondary to his additional orthopedic injury ( right hip fracture). He is going to proceed with internal fixation of his hip fracture today. I will reevaluate him postoperatively to see if any significant component of low back pain develops. If not he can be followed up as an outpatient basis in my office in 2-3 weeks to see if he develops any significant back pain symptomatology. He will proceed with analgesics in the interim. We discussed about possible bracing and he declined which is reasonable. I will consider the patient for kyphoplasty if he develops significant symptomatology or tenderness over the fracture site. Qualifiers: Encounter type: initial encounter Qualified Code(s): M48.50XA - Collapsed vertebra, not elsewhere classified, site unspecified, initial encounter for fracture (2) Osteopenia Current Visit: Yes Status: Chronic Qualifiers: Osteopenia location: lumbar spine Qualified Code(s): M85.88 - Other specified disorders of bone density and structure, other site Subjective Principal diagnosis: Right intertrochanteric hip fracture, L2 vertebral compression fracture Interval history: Mr. Ames is an 87-year-old gentleman who had a fall and sustained a right intertrochanteric hip fracture. He complains mostly of right hip and leg pain. Workup of his injury included CT scan of the lumbar spine which revealed an L2 vertebral compression fracture. We are asked to see regarding management of his fracture. He is not significantly aware of back pain at this time. He denies radicular symptoms in the lower extremities. He denies fevers chills but is unable to ambulate secondary to his hip injury. Dr. Galloway of the orthopedic service plans intramedullary nailing of the hip fracture later today. We are asked to see regarding management of his compression fracture. Objective Vital signs: Vital Signs Temp Pulse Resp BP Pulse Ox 05/30/17 15:00 98.9 F 87 16 90/57 93 05/30/17 11:09 98.9 F 77 18 103/69 98 05/30/17 10:58 18 97 05/30/17 06:28 98.3 F 75 18 106/65 98 05/30/17 04:05 98.3 F 80 17 102/58 100 05/30/17 03:25 16 97 05/30/17 00:21 98.3 F 81 19 107/70 96 05/29/17 21:43 16 96 05/29/17 21:06 97 05/29/17 19:01 97.4 F L 75 17 93/61 93 05/29/17 18:42 18 124/57 Intake and Output 05/29/17 05/30/17 05/30/17 23:59 07:59 15:59 Output Total 200 / 200 100 / 100 Balance -200 / -200 -100 / -100 Output: Urine 200 / 200 100 / 100 Other: # Voids 1 Blood Glucose* 112 - Labs CBC & BMP: 05/30/17 06:18 05/30/17 06:18 Labs: Abnormal lab results RBC 3.24 M/mcL (4.19-5.50) L 05/30/17 06:18 Hgb 9.7 g/dL (12.9-16.9) L 05/30/17 06:18 Hct 30.2 % (37.5-50.1) L 05/30/17 06:18 RDW 16.8 % (11.5-14.5) H 05/30/17 06:18 Nucleated RBCs/100 WBC 0.2 /100 WBC (0) H 05/29/17 17:41 PT 18.1 Seconds (9.4-12.1) H 05/29/17 17:41 APTT 37.2 Seconds (26.0-36.0) H 05/30/17 06:18 Sodium 131 mEq/L (136-145) L 05/30/17 06:18 BUN 41 mg/dL (8-23) H 05/30/17 06:18 Creatinine 2.04 mg/dL (0.70-1.30) H 05/30/17 06:18 Est GFR ( Amer) 38 (> 60) L 05/30/17 06:18 Est GFR (Non-Af Amer) 31 (> 60) L 05/30/17 06:18 Glucose 119 mg/dL (70-105) H 05/30/17 06:18 POC Glucose 112 mg/dL (70-99) H 05/30/17 06:59 Calcium 8.1 mg/dL (8.6-10.3) L 05/30/17 06:18 Troponin I 0.05 ng/mL (< 0.04) H* 05/30/17 06:18 B-Natriuretic Peptide 2459 pg/mL (Less than 100) H 05/30/17 06:18 HDL Cholesterol 24 mg/dL (40-59) L 05/30/17 06:18 Consult Discharge Plan - Plan Instructions: Fall Prevention for Older Adults (ED) Referrals: Amari Alcantara DO [Primary Care Provider] -
--- NOTE | 2017-05-30 16:35 | Nephrology Consult Note ---
Date of Encounter: 05/30/17 Time of Encounter: 09:55 Assessment and Plan (1) CKD (chronic kidney disease) stage 3, GFR 30-59 ml/min Current Visit: No Status: Chronic CKD stage IIIb with baseline eGFR typically in the lower 30s. Hx of CHF requiring chronic Loop diuretics. His urine appeared concentrated when visualized earlier today and he has been NPO, so I would recommend gentle IVF for about 24hr. Since he had fallen and was down for at least "20 min", I recommend checking a CK. Hyponatremia: suspect multifactorial. Will check urine studies, TSH, fasting cortisol. Goal is always a slow correction rate. Continue to follow a renal protective strategy by doing renally cleared Rx by GFR, avoiding Nephrotoxins such as IV contrast, NSAIDs, Bactrim, etc. I met with the , son, daughter and the pt at the bedside this AM, and answered all their questions. (2) Essential hypertension Current Visit: Yes Status: Chronic Chronic. Will monitor. For his peripheral edema, I recommend PADILLA costa after his hip surgery. (3) Hyponatremia Current Visit: No Status: Acute Acute on chronic. See above (4) Intertrochanteric fracture of right hip Current Visit: Yes Status: Acute Appreciate Ortho Qualifiers: Encounter type: initial encounter Fracture type: closed Fracture alignment: displaced Qualified Code(s): S72.141A - Displaced intertrochanteric fracture of right femur, initial encounter for closed fracture (5) Hypokalemia Current Visit: No Status: Chronic Likely from his higher diuretic requirements d/t his known peripheral edema. Would cont the KCl but reasonable to hold the Bumex (she he is most likely slightly intravascularly dry today) and the amiloride for now. Will follow the serum K+ closely and I'll check serum Mg. History of Present Illness - Reason for Consult Consult date: 05/30/17 Chronic Kidney Disease, hyponatremia Requesting physician: Walt Gonzalez - Chief Complaint CKD - History of Present Illness Dale Ames is a very pleasant 87 y/o WM with a pmh of CKD stage IIIb (renal risk factors HTN, Diuretics, Age), hx of chronic systolic HF requiring chronic loop diuretics, hypokalemia on amiloride, HTN and et al who presented s/p fall down stairs. I know him well from my CKD clinic. I saw him earlier today and now able to document in his chart. He voiced laying for about 20 min before being helped off the ground. His worsens with attempts to move. He denied use of NSAIDs. He did not affirm N/V/D, F/C, dysuria or CP. He has not had anything to eat or drink. He still makes urine, and his son who was present in the [facility] exam room point out the dark appearing urine that had been collected. Past Med Surg Social Fam HX - Past Medical History Medical history: atrial fibrillation, cancer, CHF, COPD, coronary artery disease , hyperlipidemia, hypertension, myocardial infarction, renal disease, valvular heart disease, other Psychiatric history: no psych history - Past Surgical History Surgical History: coronary bypass (CABG) - Social History Smoking Status: Never smoker Smokeless Tobacco Status: No Alcohol use: none Drug use: none - Family History Mother Living Status: Hx Family Cardiac Disorders: Yes (HTN) Hx Family Cancer: Yes Hx Family Neurologic Disorders: Yes (cerebral hemorrhage) Brother Living Status: Cause of : throat cancer Hx Family Cancer: Yes (throat) Medications and Allergies Aspirin Enteric Coated [Aspirin EC] 81 mg PO DAILY 06/27/15 [History] Atorvastatin Calcium [Lipitor] 20 mg PO HS 06/27/15 [History] Levothyroxine [Synthroid] 50 mcg PO QAM 06/27/15 [History] Montelukast [Singulair] 10 mg PO DAILY 06/27/15 [History] Ranolazine [Ranexa] 500 mg PO BID 06/27/15 [History] Temazepam [Restoril] 30 mg PO HS 06/27/15 [History] Venlafaxine HCl [Venlafaxine HCl ER] 75 mg PO DAILY 06/27/15 [History] Calcitriol [Rocaltrol] 0.25 mcg PO DAILY 04/18/16 [History] Oxygen 2 l NS HS 04/18/16 [History] aMILoride [Midamor] 5 mg PO DAILY 04/18/16 [History] Metoprolol XL (24 HR) Succ [Toprol Xl] 100 mg PO DAILY tab.er.24h 04/20/16 [Rx] Fluticasone/Vilanterol [Breo Ellipta 100-25 Mcg INH] 1 puff IH DAILY 10/29/16 [ History] Ipratropium/Albuterol Neb [Duoneb] 3 ml IH Q6HR #120 inhsol 01/02/17 [Rx] Albuterol Sulfate [Proair Hfa] 2 puff IH Q4H PRN 04/18/17 [History] Bumetanide [Bumex] 1 mg PO BID #60 tablet 04/20/17 [Rx] Potassium Chloride 20 meq PO BID #0 04/20/17 [Rx] 3 Allergy/AdvReac Type Severity Reaction Status Date / Time rivaroxaban [From Xarelto] AdvReac See Verified 05/29/17 18:36 Comments Review of Systems All Systems: reviewed and no additional remarkable complaints except as stated Exam - Vital Signs Vital signs: Initial Vital Signs Temp Pulse Resp BP Pulse Ox 97.5 F L 64 20 95/62 97 05/29/17 15:13 05/29/17 15:13 05/29/17 15:13 05/29/17 15:13 05/29/17 15:13 Vital Signs - Last 8 Hours Temp Pulse Resp BP Pulse Ox 05/30/17 16:22 16 93 05/30/17 15:00 98.9 F 87 16 90/57 93 05/30/17 11:09 98.9 F 77 18 103/69 98 05/30/17 10:58 18 97 Intake and Output 05/30/17 05/30/17 05/30/17 07:59 15:59 23:59 Output Total 200 / 200 100 / 100 Balance -200 / -200 -100 / -100 Output: Urine 200 / 200 100 / 100 Other: Blood Glucose* 112 - General Appearance General appearance: well-developed, well-nourished, appears started age EENT: ATNC, PERRL, mucous membranes moist Neck: supple Respiratory: clear Cardiology: edema (1+ pretibial pitting edema b/l), regular rate, regular rhythm , normal S1, normal S2 Gastrointestinal: normoactive bowel sounds, no tenderness, no guarding Integumentary: no rash, warm and dry Neurologic: no focal deficit, no asterixis, alert and oriented x3 Additional Comments: right hip pain and limited mobility, he was examined while laying supine in the 3NE bed. Psychiatric: mood/affect appropriate, cooperative Results - Lab Results 05/30/17 06:18 05/30/17 06:18 Most recent lab results Calcium 8.1 mg/dL (8.6-10.3) L 05/30/17 06:18 Phosphorus 4.2 mg/dL (2.7-4.5) 05/30/17 06:18 Magnesium 2.0 mg/dL (1.6-2.6) 05/30/17 06:18 I reviewed the labs, meds, vitals, imaging and progress notes. Consult Discharge Plan - Plan Instructions: Fall Prevention for Older Adults (ED) Referrals: Amari Alcantara DO [Primary Care Provider] -
[2017-05-30] MEDS ORDERED: 0.9 % Sodium Chloride 1,000 ML IVC SCH (16:45)
[2017-05-30] MEDS ORDERED: *HR* Propofol 200 MG/20 ML VIAL IVP ONE ×2 (17:04→21:19)
[2017-05-30] MEDS ORDERED: *HR* Midazolam HCl 2 MG/2 ML VIAL ONE (17:04)
[2017-05-30] MEDS ORDERED: *HR* FentaNYL (PF) 100 MCG/2 ML VIAL ONE ×3 (17:04→21:33)
[2017-05-30] MEDS ORDERED: Ondansetron 4 MG/2 ML VIAL ONE ×2 (17:04→21:19)
[2017-05-30] MEDS ORDERED: *HR* Rocuronium Bromide 50 MG/5 ML VIAL ONE (17:04)
[2017-05-30] MEDS ORDERED: Dexamethasone 4 MG/ML VIAL ONE ×2 (17:04→21:19)
[2017-05-30] MEDS ORDERED: Lidocaine -MPF 4% 5 ML AMPUL ONE ×2 (17:04→21:19)
[2017-05-30] MEDS ORDERED: Lidocaine -MPF 2% 2 ML VIAL ONE ×2 (17:04→21:19)
--- NOTE | 2017-05-30 18:04 | Anesthesia Evaluation PreOp ---
<Fawad Osborne - Last Filed: 05/30/17 21:02> Date of Encounter: 05/30/17 Medications and Allergies Aspirin Enteric Coated [Aspirin EC] 81 mg PO DAILY 06/27/15 [History] Atorvastatin Calcium [Lipitor] 20 mg PO HS 06/27/15 [History] Levothyroxine [Synthroid] 50 mcg PO QAM 06/27/15 [History] Montelukast [Singulair] 10 mg PO DAILY 06/27/15 [History] Ranolazine [Ranexa] 500 mg PO BID 06/27/15 [History] Temazepam [Restoril] 30 mg PO HS 06/27/15 [History] Venlafaxine HCl [Venlafaxine HCl ER] 75 mg PO DAILY 06/27/15 [History] Calcitriol [Rocaltrol] 0.25 mcg PO DAILY 04/18/16 [History] Oxygen 2 l NS HS 04/18/16 [History] aMILoride [Midamor] 5 mg PO DAILY 04/18/16 [History] Metoprolol XL (24 HR) Succ [Toprol Xl] 100 mg PO DAILY tab.er.24h 04/20/16 [Rx] Fluticasone/Vilanterol [Breo Ellipta 100-25 Mcg INH] 1 puff IH DAILY 10/29/16 [ History] Ipratropium/Albuterol Neb [Duoneb] 3 ml IH Q6HR #120 inhsol 01/02/17 [Rx] Albuterol Sulfate [Proair Hfa] 2 puff IH Q4H PRN 04/18/17 [History] Bumetanide [Bumex] 1 mg PO BID #60 tablet 04/20/17 [Rx] Potassium Chloride 20 meq PO BID #0 04/20/17 [Rx] 3 Allergy/AdvReac Type Severity Reaction Status Date / Time rivaroxaban [From Xarelto] AdvReac See Verified 05/29/17 18:36 Comments Anesthesia Results - Labs 05/30/17 06:18 05/30/17 06:18 Anesthesia Exam Vital Signs/O2 Sat/Glucose, Most Current Temp Pulse Resp BP Pulse Ox 05/30/17 19:26 97.9 F 90 16 91/62 93 Height: 5'7 Weight: 160 lbs NPO (# of Hours): MN Pain Scale: 0 - HEENT Pupil (Motor): Pupils equal, EOMI Mallampati: III Teeth: Edentulous Oral Opening: Less than or equal to 3 - RECREATION THERAPY DIRECTOR LOC: Oriented RECREATION THERAPY DIRECTOR Motor: Normal RUE, Normal LUE, Normal RLE, Normal LLE, Normal Face RECREATION THERAPY DIRECTOR Sensory: Normal: RUE, LUE, RLE, LLE, Face - Cardiac Rhythm: Regular Murmur: None JVD: No Carotid Bruit: No - Pulmonary Breath Sounds: bilateral Clear Respiratory Effort: Symmetrical Anesthesia Assess/Plan Autologous Blood: No <Fawad Nicole - Last Filed: 06/01/17 08:21> Date of Encounter: 06/01/17 Time of Encounter: 18:02 - Past History Planned Operation: Right Hip Nail Cardiac History: MS, CHF, HTN, Hyperlipidemia, Arrhythmia (AF), Cardiac Surgery , Other (Valvular Heart Dx- Severe TR) Pulmonary History: Denies Any Significant HX, COPD (2l O2 NC at night) RECREATION THERAPY DIRECTOR History: Denies Any Significant HX Other Medical History: Renal (Stage III CRD) Anesthesia History: Past Anesthesia (CABG) Alcohol Use: none Drug use: none - Meds/Allergy Pre-op Review Medications Reviewed: Yes Allergies Reviewed: Yes Beta Blockers on Current Med List: Yes If Beta Blockers taken, Date/Time (Last Dose taken): 09:32 Anesthesia Results - Labs 05/31/17 01:05 05/31/17 01:05 Echocardiogram Name: Dale Ames Date of Study: 01/27/2017 EV/EV echocardiogram Impressions: LVEF 55%. Normal LV chamber size, wall thickness and function. Atypical septal motion consistent with post-operative status. Indeterminate diastolic function. Mildly dilated right ventricle. Mild right ventricular hypokinesis. Severely dilated left atrium. Severely dilated right atrium. Mild-moderate aortic regurgitation. Mild mitral regurgitation. Severe tricuspid regurgitation. Moderate pulmonic regurgitation. Moderate-severe pulmonary hypertension. Estimated RVSP is 54 mmHg. Overall, findings similar to prior report from 10/2016. 02/03/15 Stress EF 74% No ischemia - Imaging EKG: report reviewed (ATRIAL FIBRILLATION INTRAVENTRICULAR CONDUCTION DELAY) Anesthesia Exam Vital Signs/O2 Sat, Most Current Temp Pulse Resp BP Pulse Ox 98.9 F 87 16 90/57 93 05/30/17 15:00 05/30/17 15:00 05/30/17 16:22 05/30/17 15:00 05/30/17 16:22 Luanns Supervising Prov Stmt: pre-op to be completed by Dr. Osborne when patient arrives from floor
--- NOTE | 2017-05-30 21:03 | Orthopedic Operative Note ---
Date of procedure: 05/30/17 Procedure: Procedure: Right hip cephalomedullary nail Preoperative Diagnosis: Right hip intertrochanteric fracture Postoperative Diagnosis: Same Surgeon: Goran Galloway MD Anesthesia: General EBL: 50 cc Components used: Synthes [id number], 105 mm helical blade Complications: Intraoperative hypotension, decrease in oxygen saturation, loss of carotid pulses requiring CPR Disposition: ICU INDICATIONS: This is a 87 yo M with a PMHx of COPD, ID, CAD requiring CABG, pulmonary hypotension, atrial fibrillation, chronic kidney disease who had a mechanical fall at home and sustained a right hip intertrochanteric fracture as well as an L2 compression fracture. Orthopedic spine was consulted for the compression fracture and recommended non-operative management as the patient was neurovascularly intact. After discussing the patient's hip fracture at length, the patient elected for operative management with a cephalomedullary nail of the right hip. The risks and benefits of the procedure were fully explained. Those risks include but are not limited to, infection, neurovascular injury, continued pain, arthritis, stiffness, further injury, need for further surgery, DVT, PE, loss of limb, and loss of life. The patient understood all of these risks and wished to proceed. Informed consent was obtained. No guarantees were stated or implied. OPERATIVE REPORT: The patient was identified in the holding area. The right lower extremity was marked, the patient was taken to the operating room and general anesthetic was administered on the hospital bed. The patients head, neck and airway were protected by anesthesia through the case. The patient was then transferred to the fracture table and placed in the supine position with a well padded perineal post. All bony prominences were well padded. The right leg was attached to the traction device on the fracture bed. The left leg was then placed in a well leg peralta and positioned out of the way of fluoroscopy. We then utilized the fracture table to reduce the fracture and obtained fluoroscopic images in AP and lateral planes confirming alignment. The right lower extremity was then prepped and draped in the normal manner. Preoperative antibiotics were given prior to incision. A surgical time out protocol was then performed. We then made an incision just proximal to the greater trochanter. We dissected down and through the IT band. We were then able to palpate the greater trochanter and we placed a guidepin in the appropriate starting position on the greater trochanter. We advanced the guidepin into the proximal femur slightly and then confirmed the position in both AP and lateral planes. After confirming acceptable pin placement, we advanced the pin to the level of the lesser trochanter. We then utilized an entry reamer over the pin to open up the canal. We were then able to pass a ball-tipped guidewire down past the fracture site and down distally into the distal femur. We measured and determine the appropriate nail length which was 380 mm. We then reamed the femur up to a size 12.5 mm for an 11 mm nail. We then placed a 380x11 mm size nail. We advanced the nail to the appropriate depth taking care to avoid any further injury. When the nail was at the appropriate depth we used the outrigger to place a compression blade into the femoral head. We confirmed location of the blade on both AP and lateral x-rays. There was compression across the fracture site that was visible on fluoroscopy. After confirming acceptable alignment of the fracture, we then used perfect circles technique to place a distal locking screw from lateral to medial. At this point we obtained final fluoroscopic images of the right hip and femur in both AP and lateral planes. We then thoroughly irrigated the wounds and closed the IT band with 0 Vicryl. Subcutaneous tissues were closed with 2-0 stratafix. Skin was closed with portia. As before dressing the wounds the patient became hypotensive with a decrease in oxygen saturation and loss of carotid pulses. He required several rounds of CPR as well as a total of 1 mg of epinephrine over several doses over the course of 40 minutes of critical care. He was able to be transferred to the ICU while remaining intubated for further critical care. Postop plan: The patient was transferred to the ICU for further medical management. Was there an desk assistant present: No Estimated blood loss (cc): 50
[2017-05-30] MEDS ORDERED: Acetaminophen IV 1,000 MG/100 ML INFUS..BTL ONE (21:04)
[2017-05-30] MEDS ORDERED: Famotidine 20 MG/2 ML VIAL ONE (21:04)
[2017-05-30] MEDS ORDERED: *HR* Succinylcholine 200 MG/10 ML VIAL IVP ONE (21:19)
[2017-05-31] MEDS ORDERED: EPINEPHrine 1 MG in D5% in Water 250 ML IVC SCH (00:30)
[2017-05-31] MEDS ORDERED: Norepinephrine 8 MG in D5% in Water 250 ML IVC SCH (00:45)
[2017-05-31 01:22] VITALS: BP 151/91
--- NOTE | 2017-05-31 01:32 | Anesthesia Progress Note ---
Date of Encounter: 05/31/17 Time of Encounter: 21:00 Anesthesia Note - Note Note: 05/31/17 01:24 Patient underwent IM Nailing Rt Hip.At conclusion of surgery, Oxygen saturation steadily decreased from 90's to 70's, breath sounds were clear and equal bilaterally, patient placed on 100% oxygen and anesthetic gas turned off. ETCO2 precipitously decreased from 36 to 22 despite blood pressure readings of 120's/70's. Prolonged hypoxemia led to EKG changes and hypotention and loss of carotid pulse. Epineprine 1 gm divided dose given and patient BP stabilized. Patient taken to ICU where we can insert A-Line and Central line and to continue to stabilize patient. Discussed with Dr Galloway and Dr De Oliveira. Hospitalist also consulted for help. Discussed situation with family members.
[2017-05-31 01:54] LABS: Basophils % 0.3 %; Eosinophils # 0.1 K/mcL (0.0-0.6); Eosinophils % 0.7 %; Hematocrit 28.8 % (37.5-50.1); Hemoglobin 8.8 g/dL (12.9-16.9); Immature Granulocytes % 6.7 % (0-4); Lymphocytes % 25.9 %; Mean Corpuscular HGB Conc 30.6 g/dL (31.6-35.5); Mean Corpuscular Hemoglobin 30.9 pg (28.0-33.3); Mean Corpuscular Volume 101.1 fL (83.0-100.0); Monocytes % 6.7 %; Neutrophils # 9.1 K/mcL (1.6-8.9); Platelet Count 146 K/mcL (140-400); Red Blood Count 2.85 M/mcL (4.19-5.50); Red Cell Distribution Width 16.8 % (11.5-14.5); Segmented Neutrophils % 59.7 %
[2017-05-31 01:55] LABS: Calcium 7.1 mg/dL (8.6-10.3); Magnesium 2.5 mg/dL (1.6-2.6); Phosphorous 7.4 mg/dL (2.7-4.5)
[2017-05-31 01:59] LABS: Basophils # 0.1 K/mcL (0.0-0.2)
--- NOTE | 2017-05-31 02:01 | Event Note ---
<Sedrick De Oliveira - Last Filed: 05/31/17 02:51> Date of Encounter: 05/31/17 Time of Encounter: 00:20 The patient arrived to the intensive care unit at 00:20 postoperative from right intertrochanteric fracture repair. He had what sounds like an episode of PEA with 40 minutes of compressions prior to arrival. Rather quickly after arrival the patient became bradycardic and hypotensive and was found to be pulseless in PEA. CPR was initiated and epinephrine was administered. The patient initially responded well to epinephrine with recurrence of pulse several minutes after beginning compressions. Right internal jugular central line attempted by anesthesia. Unsuccessful so right femoral line was placed. Please see procedure note for details. The patient again lost pulses necessitating CPR for PEA. Epinephrine drip was started. He remained refractory requiring addition of Levophed during this time. During this time the patient's family was brought into the room. There was a long thorough shared decision making discussion with the patient's family. They voiced understanding that his current condition was critical and that he was requiring multiple vasopressors to sustain his blood pressure and heart rate. While speaking to them he began to desaturate on the ventilator into the 80s then progressing to the 70s. At this point the patient was being bagged without improved oxygenation. I had a shared decision making discussion including the patient's family and the patient's nurse that he had had roughly 1 hour of CPR and would likely have permanent dysfunction and disability secondary to his prolonged arrest. Family reported that he was a very active individual and would not want to live in a state where he would not be able to resume his previous functions. At this point the patient's family determined to withdraw care. Time of was called at 02:17. <Narciso Rausch - Last Filed: 05/31/17 21:09> Date of Encounter: 05/31/17
--- NOTE | 2017-05-31 02:01 | General Surgery Procedure Note ---
Date of procedure: 05/31/17 Pre-op diagnosis: Hemodynamic instability Post-op diagnosis: same Procedure: Right femoral central line placement Complications: None Findings: None Implants: Emergent right femoral central line placement for hemodynamic instability status post cardiac arrest. Central line placed under emergency circumstances. The patient was prepped and draped in usual sterile fashion. Ultrasound was utilized visualizing the right femoral artery and vein. The femoral vein was punctured on first pass under direct visualization with ultrasonography. Dark red blood was noted when aspirated. Guidewire was placed through the introducer needle and advanced without meeting resistance and the needle was removed. A small cut was made in the skin with an 11 blade scalpel. Dilator was introduced over the guidewire and inserted with gentle twisting and traction. Dilator was removed and a pre-flushed triple lumen 30 cm catheter was placed over the guidewire without resistance. All ports were aspirated demonstrating dark red blood and flushed. Biopatch was placed at insertion site. Sutured into place with 2 simple interrupted sutures. No complications. Surgeon: Sedrick De Oliveira Estimated blood loss (cc): 5 Pathology: none sent Condition: critical Disposition: ICU
--- NOTE | 2017-05-31 02:40 | Death Note ---
<Sedrick De Oliveira - Last Filed: 05/31/17 02:38> Discharge Sum: Summary - Date and Time Date of admission: 05/29/17 17:33 Date of : 05/31/17 - Summary Details: The patient was an 87-year-old male with a history of CAD with stents and prior CABG, renal insufficiency, hypertension, diabetes, congestive heart failure who was admitted on 05/29/17 status post fall. Patient reportedly fell in the afternoon onto his back developing low back pain and right hip pain. He was nonambulatory and EMS was called to bring him to the hospital. In the emergency department he was found to have a comminuted right femoral fracture as well as an L2 fracture. The patient was admitted to the hospitalist service with orthopedic consultation. While hospitalized the patient was evaluated by orthopedic surgery. He also had preoperative evaluation by cardiology who deemed him a high risk candidate. He was also followed by nephrology for his renal insufficiency and hyponatremia. The patient underwent surgical intervention on 05/30/17 with orthopedic surgery for his intertrochanteric hip fracture. It appears that near the end of the case intraoperatively had an episode of hypotension which then evolved into PEA. Report is that he had roughly 40 minutes of CPR prior to arrival to the intensive care unit. In the intensive care unit the patient quickly evolved back into PEA arrest requiring numerous doses of post dose epi. Responses were brief succumbing back to arrest roughly every 10 minutes. A central line was placed and the patient was started on an epinephrine drip which escalated to epinephrine and Levophed. Despite these interventions the patient continued to have episodes of hypotension. Family was at bedside during this time. He also continued to have worsening hypoxia on the ventilator despite full support. There was a long discussion with the patient's family present about the patient's critical status, likely projected outcome and functional status. After a long sugar decision making conversation with the family, patient's nurse and myself the family requested withdrawal of care. Time of 02:17 - Additional Data Confirmation of as documented by pronouncing clinician: no pulse, no respirations, no heart sounds Family: at bedside Attending physician: Edouard Brambila Was code activated?: Yes Autopsy requested?: No pension examiner notified?: Yes Hospice patient?: No Discharge Sum: Diag - PCOD Probable Cause of : Cardiac arrest Discharge Sum: Prov - Provider Primary care physician: Amari Alcantara Admitting clinician: Rivka Finley Consults: 05/29/17 18:50 Consult to Cardiology [CONS] Routine Comment: Consulting Provider: Cardiology Kianna Reason for Consult: CAD AR, TR pre-op Call Completed: No Consult to Nephrology [CONS] Routine Consulting Provider: Alexander Lindsey Reason for Consult: CKD, hyponatremia, leg swelling Call Completed: No Pronouncing clinician: Sedrick De Oliveira <Narciso Rausch - Last Filed: 05/31/17 21:09> Discharge Sum: Summary - Date and Time Date of admission: 05/29/17 17:33 - Additional Data Attending physician: Edouard Brambila Discharge Sum: Prov - Provider Primary care physician: Amari Alcantara Consults: 05/29/17 18:50 Consult to Cardiology [CONS] Routine Comment: Consulting Provider: Cardiology Kianna Reason for Consult: CAD AR, TR pre-op Call Completed: No Consult to Nephrology [CONS] Routine Consulting Provider: Alexander Lindsey Reason for Consult: CKD, hyponatremia, leg swelling Call Completed: No - Attending Attestation I examined this patient and my medical decision-making was reviewed with the Resident Physician. I agree with the documented findings, disposition and treatment plan as described except to the extent set forth below.
[2017-05-31] MEDS: Ipratropium/Albuterol Neb 3 ML IH SCH (03:34)
--- NOTE | 2017-06-02 16:56 | Electrocardiograph Report ---
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
--- NOTE | 2017-06-05 10:37 | Electrocardiograph Report ---
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
--- NOTE | 2017-06-05 10:45 | Electrocardiograph Report ---
[place] [address] [place], [place] [address] Test Date: 2017-05-31 Pat Name: Dale Ames Department: 109 Room: [facility] Gender: M [employer] Teammate: : 1930 Requested By: Narciso Rausch Order Number: [id number] Reading MD: Sandra Weaver Measurements Intervals [place] Rate: 116 P: -54 ID: [id number] QRS: -35 QRSD: 60 T: -28 QT: 408 QTc: 477 Interpretive Statements CONSIDER ATRIAL FIBRILLATION LEFT AXIS DEVIATION POSSIBLE OLD INFERIOR NE ANTERIOR MYOCARDIAL INFARCTION, OF INDETERMINATE AGE ST ELEVATION, CONSIDER ANTERIOR INJURY Electronically Signed On 06-05-2017 10:43:30 EDT by Sandra Weaver
== END 2017-05-31 02:17 | disposition expired | DRG 481 ==
LOC: EMEROO 15:11 → SUATTDRO 17:33 → 3NENU 17:33 → ICNU 05-30 23:34
PROVIDERS: ADMIT Hospitalist; ATTEND Internal Medicine